=== PATIENT | female | born 1960 | race Caucasian/White ===

== ENCOUNTER 2017-03-22 08:06 | Day surgery (SDC) | payer BC ==
[~2017-03-22 08:06] MED LIST: Buffered Lidocaine 0.9% SYRIN* 5 ML/SYR SYRINGE INTRADERM ONE
[2017-03-22] MEDS ORDERED: Trypan Blue 0.06% SOL* 0.5 ML BTL ONE (10:24)
[2017-03-22] MEDS ORDERED: Midazolam* 1 MG/ML 2 ML VIAL (2 MG) ONE ×2 (10:32→10:37)
[2017-03-22 11:06] VITALS: BP 121/61
[2017-03-22] MEDS ORDERED: acetaZOLAMIDE TAB* 250 MG ONE (15:02)
[2017-03-22] MEDS ORDERED: Lidocaine 2% EPI 1:200000 MPF* 20 ML VIAL ONE (15:02)
[2017-03-22] MEDS ORDERED: Cyclopentolate 1% OPTH.SOL* 2 ML BTL ONE (15:02)
[2017-03-22] MEDS ORDERED: Buffered Lidocaine 0.9% SYRIN* 5 ML/SYR SYRINGE ONE (15:02)
[2017-03-22] MEDS ORDERED: Phenylephrine 2.5% OPTH.SOL* 2 ML BTL ONE (15:02)
[2017-03-22] MEDS ORDERED: Povidone Iodine 5% OPTH* 30 ML BTL ONE (15:02)
[2017-03-22] MEDS ORDERED: Neomycin/Polymy/Dex OPTH.SUSP* MAXITROL 0.1% 5 ML ONE (15:02)
[2017-03-22] MEDS ORDERED: Lidocaine 1% MPF* 2 ML VIAL ONE (15:02)
[2017-03-22] MEDS ORDERED: Proparacaine 0.5% OPHTH.SOL* 15 ML BTL ONE (15:02)
[2017-03-22] MEDS ORDERED: Ketorolac 0.5% OPHTH (NF) 0.5 % 5 ML BTL ONE (15:02)
--- NOTE | 2017-03-23 02:13 | OP ---
DATE OF OPERATION: 03/22/17 - [facility] DATE OF : 64 SURGEON: Juan David Camarillo M.D. PREOPERATIVE DIAGNOSIS: Cataract, right eye. POSTOPERATIVE DIAGNOSIS: Cataract, right eye. OPERATIVE PROCEDURE: Phacoemulsification, right eye, with IOL. DESCRIPTION OF PROCEDURE: The patient was brought to the operating room after being given 1/2% Alcaine with epinephrine drops in the preoperative area. The eye was prepped and draped in the usual sterile fashion. Sterile drape and eyelid speculum were placed. Again, topical 1/2% Alcaine with epinephrine was given. A paracentesis incision was made at the 9 o'clock position with the No.75 blade. Clear cornea incision 2.2 x 2.2-mm was created at the 12 o'clock position starting at the anterior limbus using the 2.2-mm keratome. The anterior chamber was irrigated with 0.4 mL of 1% non-preservative intracameral lidocaine and filled with DisCoVisc. A capsulorrhexis was completed using the cystotome and the Utrata forceps. Hydrodissection was performed with balanced salt solution. The lens nucleus was removed with the Phacoemulsification handpiece without incident. Cortex was removed with the irrigation-aspiration handpiece. The capsular bag was re-inflated using DisCoVisc and an SN60WF 23.5 implant was inserted with the shooter. Prior to capsulorrhexis, Vision Blue was used to stain the anterior capsule. The irrigation- aspiration handpiece was used to remove all residual DisCoVisc. The eye was refilled with balanced salt solution and the wound checked and found to be watertight. Topical Maxitrol drops were given. Indication for complex cataract surgery: White cataract requiring Vision Blue capsular stain. [id number]/[facility] #: [id number] [facility] MEDICAL CENTERChristopher
== END 2017-03-22 11:14 | disposition home or self-care (01) ==
LOC: OREAST 08:06
PROVIDERS: ATTEND Specialist
DX: H25.811 Combined forms of age-related cataract, right eye (principal); F17.210 Nicotine dependence, cigarettes, uncomplicated
CPT/HCPCS: A9270-GY; J2250; V2632

== ENCOUNTER → 2017-04-05 06:45 | Day surgery (SDC) | payer BC ==
[~2017-04-05 06:45] MED LIST changes: +Buffered Lidocaine 0.9% SYRIN* 5 ML/SYR SYRINGE ONE; +Cyclopentolate 1% OPTH.SOL* 2 ML BTL ONE; +Ketorolac 0.5% OPHTH (NF) 0.5 % 5 ML BTL ONE; +Lidocaine 1% MPF* 2 ML VIAL ONE; +Midazolam* 1 MG/ML 2 ML VIAL (2 MG) ONE; +Neomycin/Polymy/Dex OPTH.SUSP* MAXITROL 0.1% 5 ML ONE; +Phenylephrine 2.5% OPTH.SOL* 2 ML BTL ONE; +Povidone Iodine 5% OPTH* 30 ML BTL ONE; +Proparacaine 0.5% OPHTH.SOL* 15 ML BTL ONE; +acetaZOLAMIDE TAB* 250 MG ONE
[2017-04-05 09:15] VITALS: BP 134/74
--- NOTE | 2017-04-05 13:07 | OP ---
OPERATIVE REPORT: DATE OF OPERATION: 04/05/17 DATE OF : 64 SURGEON: Juan David Camarillo M.D. PREOPERATIVE DIAGNOSIS: Cataract, left eye. POSTOPERATIVE DIAGNOSIS: Cataract, left eye. OPERATIVE PROCEDURE: Phacoemulsification, left eye with IOL. PROCEDURE: The patient was brought to the operating room after being given 1/2% Alcaine with epineph rine drops in the preoperative area. The eye was prepped and draped in the usual sterile fashion. S terile drape and eyelid speculum were placed. Again, topical 1/2% Alcaine with epinephrine was given . A paracentesis incision was made at the 3 o'clock position with the No.75 blade. Clear cornea inc ision 2.2 x 2.2-mm was created at the 6 o'clock position starting at the anterior limbus using the 2. 2-mm keratome. The anterior chamber was irrigated with 0.4 mL of 1% non-preservative intracameral li docaine and filled with DisCoVisc. A capsulorrhexis was completed using the cystotome and the Utrata forceps. Hydrodissection was performed with balanced salt solution. The lens nucleus was removed wi th the Phacoemulsification handpiece without incident. Cortex was removed with the irrigation-aspira tion handpiece. The capsular bag was re-inflated using DisCoVisc and an SN60WF 23.5 implant was inse rted with the shooter. The irrigation-aspiration handpiece was used to remove all residual DisCoVisc . The eye was refilled with balanced salt solution and the wound checked and found to be watertight. Topical Maxitrol drops were given. [id number]/[facility] #: [id number]
== END | disposition home or self-care (01) ==
LOC: OREAST 06:45
PROVIDERS: ATTEND Specialist
DX: H25.812 Combined forms of age-related cataract, left eye (principal); M19.90 Unspecified osteoarthritis, unspecified site; E78.00 Pure hypercholesterolemia, unspecified; F17.200 Nicotine dependence, unspecified, uncomplicated
CPT/HCPCS: A9270-GY; J2250; V2632

== ENCOUNTER 2017-05-02 14:30 | Emergency (ER) | payer BC ==
--- OUTSIDE RECORDS SUMMARY | 2017-05-02 15:35 | XMS REPORT ---
:1960 External Reference #:[id number] Author Organization [facility] [email or web address] Address [address] [facility] [facility] [address] [place] [address] Phone [phone] Care Team Providers Name Role Phone Luma Gauthier NP Primary Care Physician Unavailable Payers Type Date Identification Numbers Payment Provider Subscriber Commercial Policy Number: [id number] [employer] Papa Bautista PayID: [id number] [address] [address] [place] [address] Problems Description No Information Social History Type Date Description Comments Smoking Heavy tobacco smoker (more than 10 cigarettes/day) Allergies, Adverse Reactions, Alerts Date Description Reaction Status Severity Comments 04/17/2017 NKDA active Medications Medication Date Status Form Strength Qnty SIG Indications Ordering Provider Meloxicam Active Tablets 15mg 1 by mouth Unknown 000 every day Simvastatin Active Tablets 40mg take 1 Unknown 000 tablet by mouth at bedtime Pantoprazole Active Tablets DR 40mg 1 by mouth Unknown Sodium 000 every day Vital Signs Date Vital Result Comment 04/20/2017 Height 57 inches 4'9" Weight 170.00 lb Heart Rate 72 /min BP Systolic 148 mmHg BP Diastolic 90 mmHg Respiratory Rate 16 /min Body Temperature 97.8 F BMI (Body Mass Index) 36.8 kg/m2 Results Description No Information Procedures Date CPT Code Description Status 02/02/2017 48793 Moderate Sedation Services; Same Phys Intl 15 Mins; PT Completed >=5 Years 02/02/2017 79722 Colonoscopy Flexible Remove Tumor/Polyp/Lesion Snare Completed Technique 02/02/2017 Colonoscopy Completed Plan of Care Future Appointment(s):04/24/2017 10:45 am - Tucker [facility] at [facility]04/20/2017 - Tucker Carballo, MDD44.12 Neoplasm of uncertain behavior of left adrenal glandFollow up:after labs
--- OUTSIDE RECORDS SUMMARY | 2017-05-02 15:35 | XMS REPORT ---
:1960 External Reference #:[id number] Author Organization [facility] Address [address] [place] [address] Phone [phone] Care Team Providers Name Role Phone Luma Gauthier NP Primary Care Physician Unavailable Payers Type Date Identification Numbers Payment Provider Subscriber Commercial Policy Number: [id number] BS [employer] Tony Bautista PayID: [id number] [address] [address] [place] [address] Problems Date Description Provider Status Onset: Hypercholesterolemia Active Onset: Arthritis Active Onset: 02/09/2017 Combined form of senile cataract Juan David Camarillo M.D. 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 2017 right eye Arleo, every 2 M.D. hours Ciprofloxacin 03/17/ Active Solution 0.3% 10ml instill Juan David Estephania HCL 2017 one drop [place], in the M.D. left eye three times a day, start the day before surgery Ketorolac 03/17/ Active Solution 0.5% 10ml 1 drop Juan David Best Tromethamine 2017 left eye [place], 3 times M.D. daily Prednisolone 03/17/ Active Suspension 1% 15ml 1 drop Juan David Best Acetate 2017 left eye Arleo, 3 times M.DJack daily Simvastatin 00/ Active Tablets 40mg Unknown 0000 Pantoprazole / Active Solution Rec 40mg every day Unknown Sodium 0000 Meloxicam / Active Tablets 15mg Unknown 0000 Results Description No Information Procedures Date CPT Code Description Status 04/05/2017 57617 Extracapsular Cataract Extraction W/Intraocular Lens Completed 03/22/2017 11934 Extracapsular Cataract Extraction W/Intraocular Lens Completed 03/17/2017 90660 Ophthalmic Biometry Completed 02/09/2017 77444 New Patient Comprehensive Exam Completed Encounters Type Date Location Provider CPT E/M Dx Office Visit 03/17/2017 Juan David Camarillo MD, Juan David Camarillo, [address] H25.811 11:15a brandie Morgan H25.812 Plan of Care Future Appointment(s):04/13/2017 12:00 pm - Juan David Camarillo M.D. at Juan David Camarillo MD, located within [facility]06/06/2016 - Juan David Camarillo M.D.Z96.1 Presence of intraocular lensComments:Smoking can increase the risk of developing or worsening any eye related disease, as well as affect your overall health. If you are a smoker, we strongly recommend that you quit.If you are not a smoker, we strongly recommend that you do not start. The artifical lens implant in your left eye appears to be stable. Since this is the first day after surgery, your left eye is still dilated and the vision will still be slightly blurry. The dilation will go down over the next day or two. Continue taking your eye drops as directed on the surgical calendar. If you have any questions, please call our office.
--- OUTSIDE RECORDS SUMMARY | 2017-05-02 15:35 | XMS REPORT ---
:1960 External Reference #:[id number] Author Organization [facility] Address [address] [place] [address] Phone [phone] Care Team Providers Name Role Phone Luma Gauthier NP Primary Care Physician Unavailable Payers Type Date Identification Numbers Payment Provider Subscriber Commercial Policy Number: [id number] BS TAYL[employer] Tony Bautista PayID: [id number] [address] [place] [phone] Problems Date Description Provider Status Onset: Hypercholesterolemia Active Onset: Arthritis Active Onset: 02/09/2017 Combined form of senile cataract Juan David Camarillo M.D. Active Onset: 04/13/2017 Other secondary cataract, right eye Juan David Camarillo M.D. Active Onset: 04/13/2017 Presence of intraocular lens Juan David Camarillo M.D. Active Family History [...] 03/22/ Active Solution 1 drop Juan David Best 2017 into the Arleo, right eye M.D. once a day, 1 drop into the left eye three times a day Ketorolac 03/17/ Active Solution 0.5% 10ml 1 drop Juan David Best Tromethamine 2016 into the Arleo, left eye M.D. once a day Prednisolone 03/17/ Active Suspension 1% 15ml 1 drop Juan David J. Acetate 2017 into the Arleo, left eye M.D. once a day Simvastatin 00/ Active Tablets 40mg Unknown 0000 Pantoprazole / Active Solution Rec 40mg every day Unknown Sodium 0000 Meloxicam / Active Tablets 15mg Unknown 0000 Ciprofloxacin 03/17/ Hx Solution 0.3% 10ml instill Juan David J. HCL 2017 - one drop Arleo, 04/12/ in the M.D. 2017 left eye three times a day, start the day before surgery Results Description No Information Procedures Date CPT Code Description Status 04/05/2017 40670 Extracapsular Cataract Extraction W/Intraocular Lens Completed 03/22/2017 02582 Extracapsular Cataract Extraction W/Intraocular Lens Completed 03/17/2017 12965 Ophthalmic Biometry Completed 02/09/2017 34647 New Patient Comprehensive Exam Completed Encounters Type Date Location Provider CPT E/M Dx Office Visit 03/17/2017 Juan David Camarillo MD, Juan David Camarillo, [address] H25.811 11:15a Cathy H25.812 Plan of Care 04/13/2017 - Juan David Camarillo M.D.Z96.1 Presence of intraocular lensComments: Smoking can increase the risk of developing or worsening any eye related disease , as well as affect your overall health. If you are a smoker, we strongly recommend that you quit.If you are not a smoker, we strongly recommend that you do not start. Your lens implant looks stable in both eyes at this time. You should be done, or almost done with your drops at this time according to your surgical calendar. I have given you a prescription for glasses. If you have any questions, please feel free to call our office at .V00.762 Other secondary cataract, right eyeComments:There is clouding in the sac that holds your artificial lens in your right eye. When your vision bothers you, we will do a laser treatment here in the office to improve your vision.Follow up:4 Month Follow Up ANNELISE MANZANO
--- OUTSIDE RECORDS SUMMARY | 2017-05-02 15:35 | XMS REPORT ---
:1960 External Reference #:[id number] Author Organization [employer] Address [address] [facility] [address] [place] [address] Phone [phone] Care Team Providers Name Role Phone Luma Gauthier NP Primary Care Physician Unavailable Payers Type Date Identification Numbers Payment Provider Subscriber Commercial Policy Number: [id number] [employer] Papa Bautista PayID: [id number] [address] [address] [place] [address] Problems Description No Information Social History Type [...] day Vital Signs Date Vital Result Comment 04/24/2017 Heart Rate 90 /min BP Systolic Sitting 110 mmHg BP Diastolic Sitting 70 mmHg Respiratory Rate 18 /min Body Temperature 97.4 F 04/20/2017 Height 57 inches 4'9" Weight 170.00 lb Heart Rate 72 /min BP Systolic 148 mmHg BP Diastolic 90 mmHg Respiratory Rate 16 /min Body Temperature 97.8 F BMI (Body Mass Index) 36.8 kg/m2 Results Test Date Test Result H/L Range Note Laboratory test finding 04/20/2017 Dhea 1.7 ng/mL <6.0 1 1 ADDITIONAL INFORMATION This test was developed and its performance characteristics determined by [facility] in a manner consistent with CLIA requirements. This test has not been cleared or approved by the U.S. Food and Drug Administration. Test Performed by: [facility] [address] [place] [address] Procedures Date CPT Code Description Status 02/02/2017 04369 Moderate Sedation Services; Same Phys Intl 15 Mins; PT Completed >=5 Years 02/02/2017 55630 Colonoscopy Flexible Remove Tumor/Polyp/Lesion Snare Completed Technique 02/02/2017 Colonoscopy Completed Encounters Type Date Location Provider CPT E/M Dx Office Visit 04/20/2017 11:15a [facility] [place] [address] D49.7 [facility] Plan of Care 04/24/2017 - Tucker Carballo, MDD49.7 Neoplm of unsp behav of endo glands and oth prt nervous sysFollow up:Pt to call on
[2017-05-02 15:40] VITALS: BP 115/63
[2017-05-02] MEDS ORDERED: Albuterol/Ipratropium NEB.SOL* Albuterol 2.5 MG/Ipratropium 0.5 MG 3 ML INH ONE (15:48)
[2017-05-02] MEDS ORDERED: predniSONE TAB* 20 MG PO ONE (15:48)
--- NOTE | 2017-05-02 15:54 | ED ---
Respiratory - HPI Summary HPI Summary: 57 yr old female with the complaint of cough. Onset of symptoms five days ago. Coughing, chest congestion and coughing up sputum. The patient denies fever and chills. She has had some wheezing. The patient is a cigarette smoker. She denies CP. No other complaints. - History of Current Complaint Chief Complaint: UCRespiratory Stated Complaint: FLU SYMPTOMS Time Seen by Provider: 05/02/17 15:37 - Allergy/Home Medications Allergies/Adverse Reactions: Allergies Allergy/AdvReac Type Severity Reaction Status Date / Time No Known Allergies Allergy Verified 05/02/17 15:40 PMH/Surg Hx/FS Hx/Imm Hx Endocrine/Hematology History: Denies: Hx Diabetes Cardiovascular History: Denies: Hx Hypertension, Hx Pacemaker/ICD Respiratory History: Denies: Hx Asthma GI History: Reports: Hx Ulcer - bleeding - healed Musculoskeletal History: Reports: Hx Arthritis Sensory History: Reports: Hx Cataracts - both, Hx Contacts or Glasses Denies: Hx Hearing Aid Opthamlomology History: Reports: Hx Cataracts - both, Hx Contacts or Glasses Psychiatric History: Denies: Hx Panic Disorder - Surgical History Surgery Procedure, Year, and Place: cataracts. , 1995 Hx Anesthesia Reactions: No Infectious Disease History: No Infectious Disease History: Denies: Traveled Outside the [place] in Last 30 Days - Social History Occupation: Employed Full-time Alcohol Use: Rare Substance Use Type: Reports: None Smoking Status (MU): Heavy Every Day Tobacco Smoker Type: Cigarettes Amount Used/How Often: smoked more than 10 years 1ppd Review of Systems Positive: Cough All Other Systems Reviewed And Are Negative: Yes Physical Exam Triage Information Reviewed: Yes Vital Signs On Initial Exam: Initial Vitals Temp Pulse Resp BP Pulse Ox 98.3 F 88 16 115/63 98 05/02/17 15:36 05/02/17 15:36 05/02/17 15:36 05/02/17 15:36 05/02/17 15:36 Vital Signs Reviewed: Yes Appearance: Positive: Well-Appearing, No Pain Distress Skin: Positive: Warm Head/Face: Positive: Normal Head/Face Inspection Eyes: Positive: EOMI ENT: Positive: Pharynx normal, Nasal congestion Neck: Positive: Nontender Respiratory/Lung Sounds: Positive: Wheezes - bilaterally. Negative: Rales, Rhonchi, Stridor Cardiovascular: Positive: RRR. Negative: Murmur Abdomen Description: Positive: Nontender Musculoskeletal: Positive: Strength/ROM Intact Neurological: Positive: Sensory/Motor Intact, Alert, Oriented to Person Place, Time, CN Intact II-III Psychiatric: Positive: Normal - Sanford Coma Scale Best Eye Response: 4 - Spontaneous Best Motor Response: 6 - Obeys Commands Best Verbal Response: 5 - Oriented Diagnostics - Vital Signs Vital Signs Temp Pulse Resp BP Pulse Ox 05/02/17 15:36 98.3 F 88 16 115/63 98 - Laboratory Lab Statement: Any lab studies that have been ordered have been reviewed, and results considered in the medical decision making process. Re-Evaluation - Re-Evaluation First Eval Re-Evaluation Time: 16:27 Change: Improved Comment: she reports feeling much better after the neb. Disposition - Course Course Of Treatment: 57 yr old female with the complaint of coughing and wheezing. She denies a history of COPD. - Diagnoses Provider Diagnoses: Acute bronchitis, Mycoplasma pneumonia Discharge - Discharge Plan Condition: Good Disposition: HOME Prescriptions: Albuterol HFA INHALER* [Ventolin HFA Inhaler*] 1 - 2 puff INH Q4H PRN #1 mdi PRN Reason: Cough Azithromycin TAB* [Zithromax TAB (Z-LISBET) 250 mg #6 tabs] 2 tab PO .TODAY, THEN 1 DAILY #1 lisbet Benzonatate CAP* [Tessalon 100 MG CAP*] 100 mg PO TID #14 cap predniSONE TAB* [Deltasone TAB*] 40 mg PO DAILY #8 tab Patient Education Materials: Acute Bronchitis (ED), Pneumonia (ED) Referrals: Luma Gauthier NP [Primary Care Provider] - 2 Days
--- NOTE | 2017-05-02 16:24 | RAD ---
INDICATION: Cough x5 days COMPARISON: None TECHNIQUE: PA and lateral views of the chest were obtained. FINDINGS: The heart and mediastinum are normal in size and contour. The lungs are grossly clear. There is no evidence of large pleural effusion. Visualized bones are normal for the patient's age. There is no radiographic evidence of free air beneath the diaphragm IMPRESSION: No radiographic evidence of acute cardiopulmonary disease.
== END 2017-05-02 16:43 | disposition home or self-care (01) ==
LOC: UCCORT 14:30
DX: J20.9 Acute bronchitis, unspecified (principal); J15.7 Pneumonia due to Mycoplasma pneumoniae; Z72.0 Tobacco use
CPT/HCPCS: 71020; 87502; 99212; A9270-GY; G0463; J7512

== ENCOUNTER 2017-07-26 09:04 | Emergency (ER) | payer BC ==
[2017-07-26 09:53] VITALS: BP 155/94
--- NOTE | 2017-07-26 10:23 | UC ---
Respiratory Complaint HPI - HPI Summary HPI Summary: Pt c/o cough, chest congestion, SOB with exertion and exposure to cold air. - History of Current Complaint Chief Complaint: UCRespiratory Stated Complaint: UPPER RESPIRATORY Time Seen by Provider: 07/26/17 10:11 Hx Obtained From: Patient Hx Last Menstrual Period: n/a ?: No Onset/Duration: Gradual Onset, Lasting Weeks - 3 Timing: Constant Severity Initially: Mild Severity Currently: Mild Pain Intensity: 0 Character: Cough: Nonproductive Aggravating Factors: Exertion, Deep Breaths, Recumbent Position Alleviating Factors: Nothing Associated Signs And Symptoms: Positive: Wheezing - Risk Factors Pulmonary Embolism Risk Factors: Smoking Cardiac Risk Factors: Smoking Pseudomonas Risk Factors: Chronic Lung Disease Tuberculosis Risk Factors: Smoking - Allergies/Home Medications Allergies/Adverse Reactions: Allergies Allergy/AdvReac Type Severity Reaction Status Date / Time No Known Allergies Allergy Verified 07/26/17 09:47 Home Medications: Home Medications Albuterol 2.5MG/3ML (0.083%)* [Ventolin 2.5 MG/3 ML NEB.NINO*] 2.5 mg INH Q6H PRN 07/26/17 [History Confirmed 07/26/17] PMH/Surg Hx/FS Hx/Imm Hx Previously Healthy: Yes Respiratory History: Bronchitis - Surgical History Surgical History: Yes Surgery Procedure, Year, and Place: cataracts. , 1995 - Family History Known Family History: Positive: Cardiac Disease - Social History Occupation: Employed Full-time Lives: With Family Alcohol Use: Occasionally Substance Use Type: None Smoking Status (MU): Heavy Every Day Tobacco Smoker Type: Cigarettes Amount Used/How Often: smoked more than 10 years 1ppd Have You Smoked in the Last Year: Yes Household Exposure Type: Cigarettes Review of Systems Constitutional: Fever - resolved, Chills - resolved, Fatigue Skin: Negative Eyes: Negative ENT: Negative Respiratory: Cough Cardiovascular: Negative Gastrointestinal: Negative Genitourinary: Negative Motor: Negative Neurovascular: Negative Musculoskeletal: Negative Neurological: Negative Psychological: Negative Is Patient Immunocompromised?: No All Other Systems Reviewed And Are Negative: Yes Physical Exam Triage Information Reviewed: Yes Appearance: Well-Appearing Vital Signs: Initial Vital Signs Temp 97.5 F 07/26/17 09:48 Pulse 82 07/26/17 09:48 Resp 20 07/26/17 09:48 BP 155/94 07/26/17 09:48 Pulse Ox 98 07/26/17 09:48 Vital Signs Reviewed: Yes Eye Exam: Normal ENT Exam: Normal Dental Exam: Normal Neck exam: Normal Respiratory Exam: Other Respiratory: Positive: Decreased breath sounds - bialteral bases Cardiovascular Exam: Normal Musculoskeletal Exam: Normal Neurological Exam: Normal Psychological Exam: Normal Skin Exam: Normal UC Diagnostic Evaluation - Laboratory O2 Sat by Pulse Oximetry: 98 Respiratory Course/Dx - Differential Dx/Diagnosis Differential Diagnosis/HQI/PQRI: Bronchitis, Exacerbation Of COPD Provider Diagnoses: Bronchitis Discharge - Sign-Out/Discharge Documenting (check all that apply): Discharge - Discharge Plan Condition: Stable Disposition: HOME Prescriptions: Azithromycin TAB* [Zithromax TAB (Z-LISBET) 250 mg #6 tabs] 2 tab PO .TODAY, THEN 1 DAILY #1 lisbet Benzonatate CAP* [Tessalon 100 MG CAP*] 100 mg PO Q8H PRN #30 cap PRN Reason: Cough Cetirizine* [ZyrTEC 10 MG TAB*] 10 mg PO DAILY #20 tab Fluconazole 100 MG TAB* [Diflucan 100 MG TAB*] 100 mg PO DAILY #2 tab predniSONE TAB* [Deltasone TAB*] 30 mg PO DAILY #9 tab Patient Education Materials: How to Stop Smoking (ED), Acute Bronchitis (ED) Referrals: Luma Gauthier NP [Primary Care Provider] - If Needed - Billing Disposition and Condition Condition: STABLE Disposition: HOME
== END 2017-07-26 10:33 | disposition home or self-care (01) ==
LOC: UCCORT 09:04
DX: J40 Bronchitis, not specified as acute or chronic (principal); F17.210 Nicotine dependence, cigarettes, uncomplicated
CPT/HCPCS: 99212; G0463

== ENCOUNTER 2019-05-16 13:20 | Inpatient (IN) | payer BC ==
[2019-05-16] MEDS ORDERED: NS 0.9% 1000 ML** 1,000 ML IV ONE ×2 (13:21→15:59)
[2019-05-16] MEDS ORDERED: LORazepam INJ* 2 MG/ML 1 ML VIAL IV PUSH ONE (13:36)
[2019-05-16] MEDS ORDERED: Lorazepam PYXIS KEY PRN (13:36)
[2019-05-16] MEDS ORDERED: levETIRAcetam 1000MG IVPREMIX* 1,000 MG/100 ML BAG IVPB ONE (13:36)
--- NOTE | 2019-05-16 13:37 | ED ---
Neurological HPI - HPI Summary HPI Summary: The patient is a 59 year old female arriving by ambulance to [facility] emergency department with a chief complaint of neurological deficits and altered mental status with last well known at 0830 this morning. Per EMS, the patients had left the house at 0830 and returned to find his on the floor at 1130. He noticed that she was confused, had a change in her gaze, and also left-sided weakness. She is not answering questions when prompted, although she states STOP when performing physical. She has had a decreased solid intake recently but has been drinking fluids. notes she has been taking antibiotics for a UTI diagnosed last week. Past medical history is significant for TIA and bladder cancer and two mass removals with radiation and chemotherapy with last treatment in January 2019 at [facility]. No family history of seizures. No recent admissions in the last year. No current anticoagulants. Level 5 Caveat secondary to altered mental status. History obtained from EMS, , and medical records. Toi Cochran called following ambulance call at 1301 with 15 minutes ETA. Patient arrived at 1320. Seen by provider at 1320. Dr. Khan, neurology, also present at bedside upon arrival. Following evaluation, patient immediately to CT. - History of Current Complaint Stated Complaint: POSS STROKE PER EMS Time Seen by Provider: 05/16/19 13:20 Last Known Well Date: 05/16/2019 08:30 Hx Obtained From: Family/Clay Caster - , EMS Hx From Patient Unobtainable Due To: Altered Mental Status - Level 5 Caveat Hx Last Menstrual Period: n/a Onset/Duration: Still Present Neurological Deficit Location: LUE, LLE Pain Intensity: 0 Pain Scale Used: 0-10 Numeric Character: Weak - left-sided, Confusion, Other: - gaze change Associated Signs and Symptoms: Positive: AMS TPA Considered: No - Dr. Khan believes patient's symptoms are more consistent with a seizure - Allergy/Home Medications Allergies/Adverse Reactions: Allergies Allergy/AdvReac Type Severity Reaction Status Date / Time adhesive tape Allergy Rash Verified 05/16/19 13:43 Home Medications: Home Medications Morphine Sulfate 15 mg PO Q4H PRN MDD 6 tabs 05/16/19 [History Confirmed ] Morphine Sulfate [Morphine Sulfate ER] 15 mg PO BID 05/16/19 [History Confirmed 05/16/19] Morphine Sulfate [Morphine Sulfate ER] 30 mg PO BID 05/16/19 [History Confirmed 05/16/19] Ondansetron TAB* [Zofran 4 MG Tab*] 8 mg PO Q8H PRN 05/16/19 [History Confirmed 05/16/19] Pantoprazole TAB * [Protonix TAB*] 40 mg PO DAILY 05/16/19 [History Confirmed ] Prochlorperazine 10 mg TAB [Compazine 10 mg TAB] 10 mg PO Q6H PRN 05/16/19 [ History Confirmed 05/16/19] Uro-Mp 118 mg PO TID PRN 05/16/19 [History Confirmed 05/16/19] oxyCODONE/Acetamin 5/325 MG* [Percocet 5/325 TAB*] 1 tab PO .Q4-6H PRN 05/16/19 [History Confirmed 05/16/19] PMH/Surg Hx/FS Hx/Imm Hx Endocrine/Hematology History: Denies: Hx Diabetes Cardiovascular History: Denies: Hx Hypertension, Hx Pacemaker/ICD Respiratory History: Denies: Hx Asthma GI History: Reports: Hx Ulcer - bleeding - healed Musculoskeletal History: Reports: Hx Arthritis Sensory History: Reports: Hx Cataracts - both, Hx Contacts or Glasses Denies: Hx Hearing Aid Opthamlomology History: Reports: Hx Cataracts - both, Hx Contacts or Glasses Neurological History: Reports: Hx Transient Ischemic Attacks (TIA) Psychiatric History: Denies: Hx Panic Disorder - Cancer History Cancer Type, Location and Year: bladder 2018 - Surgical History Surgery Procedure, Year, and Place: cataracts. , 1996, cystoscopy x 2 2018- [place] to[place] 06/2018 + 02/2019 Hx Anesthesia Reactions: No - Family History Known Family History: Positive: Cardiac Disease - Social History Alcohol Use: Occasionally Substance Use Type: Reports: None Smoking Status (MU): Heavy Every Day Tobacco Smoker Type: Cigarettes Amount Used/How Often: smoked more than 10 years 1ppd Have You Smoked in the Last Year: Yes Review of Systems Neurological: Other - altered mental status, confusion, gaze change Positive: Weakness - left-sided All Other Systems Reviewed And Are Negative: No - Comments Additional Review of Systems Comments: Level 5 Caveat secondary to altered mental status Physical Exam - Summary Physical Exam Summary: VITAL SIGNS: Reviewed. GENERAL: Patient is a well-developed and nourished elderly female who is lying comfortable in the stretcher. Patient is not in any acute respiratory distress. HEAD AND FACE: No signs of trauma. No ecchymosis, hematomas or skull depressions. No sinus tenderness. EYES: Right-sided deviation. EOMI x 2, No injected conjunctiva. No photophobia. EARS: Hearing grossly intact. Ear canals and tympanic membranes are within normal limits. MOUTH: Oropharynx within normal limits. NECK: Supple, trachea is midline, no adenopathy, no JVD, no carotid bruit, no c- spine tenderness, neck with full ROM. No meningeal signs, no Kernig's or brudzinskis signs. CHEST: Symmetric, no tenderness at palpation. LUNGS: Clear to auscultation bilaterally. No wheezing or crackles. CVS: Regular rate and rhythm, S1 and S2 present, no murmurs or gallops appreciated. ABDOMEN: Soft, non-tender. No signs of distention. No rebound, no guarding, and no masses palpated. Bowel sounds are normal. EXTREMITIES: FROM in all major joints, no edema, no cyanosis or clubbing. NEURO: Alert and confused. Unable to provide history. She is not speaking. No weakness. SKIN: Dry and warm. GCS: 14 (see scale). NIH: 10 (see scale). Triage Information Reviewed: Yes Vital Signs Reviewed: Yes Completion Of Physical Exam Limited Due To: Altered Mental Status, Level 5 - Eliceo Coma Scale Best Eye Response: 4 - Spontaneous Best Motor Response: 6 - Obeys Commands Best Verbal Response: 4 - Confused Coma Scale Total: 14 Procedures - Sedation Patient Received Moderate/Deep Sedation with Procedure: No Diagnostics - Laboratory Result Diagrams: 05/16/19 13:43 05/16/19 13:43 Lab Statement: Any lab studies that have been ordered have been reviewed, and results considered in the medical decision making process. - Radiology Chest X-Ray Radiology Interpretation Completed By: Radiologist Summary of Radiographic Findings: Impression: No active cardiopulmonary disease. ED physician has reviewed this report. - CT Brain CT CT Interpretation Completed By: Radiologist Summary of CT Findings: Impression: No acute intracranial pathology. ED physician has reviewed this report. - EKG 1350 Cardiac Rate: Tachycardia - 115 bpm EKG Rhythm: Sinus Tachycardia Summary of EKG Findings: An EKG at 1350 reveals sinus tachycardia at [address] elevations. ED physician has reviewed and interpreted this EKG. NIH Scale - NIH Scale Level of Consciousness: Responds to Minor Stimulation Ask Patient the Month and His/Her Age: Neither Correct/Aphasic Ask Pt to Open/Close Eyes and Log Cutter/Release Non-Paretic Hand: Neither Correctly Best Gaze (Only Horizontal Eye Movement): Forced Deviation Visual Field Testing: No Visual Loss Facial Paresis-Pt to Smile & Close Eyes or Grimace Symmetry: Normal/Symmetrical Motor Function - Right Arm: No Drift-Holds 10 Seconds Motor Function - Left Arm: No Drift-Holds 10 Seconds Motor Function - Right Leg: No Drift-Holds 10 Seconds Motor Function - Left Leg: No Drift-Holds 10 Seconds Limb Ataxia-Must be out of Proportion to Weakness Present: Absent - patient doesn't follow commands Sensory (Use Pinprick to Test Arms/Legs/Trunk/Face): Normal - unable to assess as patient does not communicate Best Language (Describe Picture, Name Items): Severe Aphasia Dysarthria (Read Several Words): Normal - unable to assess as patient does not communicate Extinction and Inattention: Inattention - patient does not follow command Total Score: 10 NIH Stroke Scale Comment: Difficult NIH score assessment Re-Evaluation - Re-Evaluation First Eval Re-Evaluation Time: 13:40 Comment: Brain CT is negative, per radiology. Second Eval Re-Evaluation Time: 15:00 Comment: Patient's family agreeable with admission. Course/Dx - Course Assessment/Plan: The patient is a 59 year old female arriving by ambulance to [facility] emergency department with a chief complaint of neurological deficits and altered mental status with last well known at 0830 this morning. Per EMS, the patients had left the house at 0830 and returned to find his on the floor at 1130. He noticed that she was confused, had a change in her gaze, and also left-sided weakness. She is not answering questions when prompted, although she states STOP when performing physical. She has had a decreased solid intake recently but has been drinking fluids. notes she has been taking antibiotics for a UTI diagnosed last week. Past medical history is significant for TIA and bladder cancer and two mass removals with radiation and chemotherapy with last treatment in January 2019 at [facility]. No family history of seizures. No recent admissions in the last year. No current anticoagulants. Level 5 Caveat secondary to altered mental status. History obtained from EMS, , and medical records. Toi Cochran called following ambulance call at 1301 with 15 minutes ETA. Patient arrived at 1320. Seen by provider at 1320. Dr. Khan, neurology, also present at bedside upon arrival. Following evaluation, patient immediately to CT. Dr. Khan reports that the patient is not having a stroke, he thinks that the patient is having seizures. Therefore, he requested an EEG, Keppra, and Ativan. Head CT impression: No acute interconnected pathology. Blood work without any significant abnormality except for the slight anemia, potassium of 3.3, BUN of 39, creatinine of 0.44, calcium of 8.2, alkaline phosphatase of 150, ammonia of 64, and troponin of 0.01. EKG shows sinus tachycardia. Chest X-ray is negative. In the ED course, the patient also was given IV fluids since the patient may be dehydrated. At this time, I discussed my physical exam and findings with Dr. Clay who accepted the patient for admission. Patient is hemodynamically stable. - Differential Dx Differential Diagnoses Neuro: Positive: Carbon Monoxide Poisoning, Cerebrovascular Accident, Drug Toxicity, Dysrhythmia, Encephalitis, Hypoxia, Intracranial Bleed, Metabolic Abnormality, Overdose, Postical, Transient Ischemic Attack - Diagnoses Provider Diagnoses: Seizure, Dehydration, Hypokalemia During the Visit The Following Alert/Code Occurred: Toi Cochran - called at 1301 - Physician Notifications Discussed Care Of Patient With: Monico Khan - neurologist Time Discussed With Above Provider: 13:50 Instructed by Provider To: Other - Dr. Khan in patient's room; per his evaluation, he states that the patient does not seem to be suffering from a stroke, but it is possible there is seizure activity as she is moving her eyes from left to right and appears postictal. Dr. Khan recommends admission to the ICU [[id number]]. I spoke with Dr. Peterson, hand riveter, who states that the patient can be admitted through the hospitalist services [[id number]]. I discussed the patient 's case with Dr. Clay, who accepts the patient for admission to her services in the ICU [[id number]]. - Critical Care Time Critical Care Time: 30-74 min Discharge ED - Sign-Out/Discharge Documenting (check all that apply): Patient Departure - Patient accepted for admission to the ICU by Dr. Clay. - Discharge Plan Condition: Stable Disposition: ADMITTED TO [facility] - Billing Disposition and Condition Condition: STABLE Disposition: Admitted to [facility] - Attestation Statements Document Initiated by Surjit: Yes Documenting Scribe: Dona Cruz Provider For Whom Surjit is Documenting (Include Credential): Dr. Kevin Ortiz MD Scribe Attestation: Dona Carlos scribed for Dr. Kevin Ortiz MD on 05/16/19 at 2154. Scribe Documentation Reviewed: Yes Provider Attestation: The documentation as recorded by the Dona ruiz accurately reflects the service I personally performed and the decisions made by me, Dr. Kevin Ortiz MD Status of Scribe Document: Viewed
[2019-05-16 14:10] LABS: ABS Lymphocytes 0.8 10^3/ul (1.0-4.8); ABS Monocytes 0.6 10^3/ul (0-0.8); ABS Neutrophils 6.6 10^3/ul (1.5-7.7); Eosinophil % 0.3 %; Hematocrit 33 % (35-47); Hemoglobin 10.7 g/dL (12.0-16.0); Lymphocyte % 10.1 %; Mean Corpuscular HGB Conc 33 g/dL (31-36); Mean Corpuscular Hemoglobin 31 pg (27-31); Mean Corpuscular Volume 95 fL (80-97); Mean Platelet Volume 7.4 fL (7.4-10.4); Platelet Count 350 10^3/uL (150-450); Red Blood Count 3.43 10^6 /uL (3.70-4.87); Red Cell Distribution Width 18 % (10-15)
[2019-05-16 14:20] LABS: Activated Partial Thrombo Time 25.6 seconds (26.0-38.0); INR 1.08 (0.82-1.09)
[2019-05-16 14:26] LABS: Albumin 2.7 g/dL (3.2-5.2); Albumin/Globulin Ratio 0.9 (1-3); BUN/Creatinine Ratio 88.6 (8-20); Calcium 8.2 mg/dL (8.6-10.3); EGFR African American 178.3 (>60); EGFR Non-African American 147.4 (>60); Globulin 2.9 g/dL (2-4); HDL Cholesterol 36.8 mg/dL; Potassium 3.3 mmol/L (3.5-5.0); Total Bilirubin 0.8 mg/dL (0.2-1.0); Total Protein 5.6 g/dL (6.4-8.9)
[2019-05-16 14:27] LABS: Troponin I 0.01 ng/mL (<0.03)
[2019-05-16 14:39] LABS: TSH (Thyroid Stimulating Horm) 1.28 mcIU/mL (0.34-5.60)
[2019-05-16] MEDS ORDERED: Iohexol 350* (CONTRAST) 500 ML MDV IV ONE (15:50)
[2019-05-16] MEDS ORDERED: LORazepam INJ* 2 MG/ML 1 ML VIAL IV PUSH PRN (15:53)
[2019-05-16] MEDS ORDERED: Ondansetron TAB* 4 MG PO PRN (15:54)
[2019-05-16] MEDS ORDERED: NS 0.9% 1000 ML** 1,000 ML IV SCH (16:00)
[2019-05-16] MEDS ORDERED: levETIRAcetam 1000MG IVPREMIX* 1,000 MG/100 ML BAG IVPB SCH (16:00)
--- NOTE | 2019-05-16 16:52 | CONS ---
NEUROLOGY CONSULTATION NOTE: DATE OF CONSULT: 05/16/19 CONSULTING PROVIDER: Dr. Ortiz. REASON FOR CONSULT: Activated code stroke for eye deviation. The history was obtained by the patient's , Mr. Bautista, who is at bedside. CHIEF COMPLAINT: The patient is nonverbal and appears confused. HISTORY OF PRESENT ILLNESS: Mrs. Megan Bautista is a 59-year-old right-handed female with history of bladder cancer, status post chemotherapy and radiation therapy; chronic pain; dyslipidemia; GERD; who presented to [facility] via EMS due to increased confusion, lethargy, and eye deviation towards one side. According to her , the patient was last seen well on 05/15/19 at 1400. Mr. Bautista works the second shift and works from 3 to 11. He came home last night and she was sleeping. This morning, the patient was found to be slightly confused, but she was at least verbalizing. Mr. Bautista went out to help his sister and then came back at approximately 1230 and found the patient to be minimally responsive. She was moaning. Her eyes were deviating initially to the left. EMS was contacted and the patient was brought to [facility]. According to the EMS, the patient was not moving the left arm as well as the right arm. She also had her eye deviation go from left to right multiple times. During my evaluation, I did notice that the patient had eye deviation towards the right side with her eyes wide open. She had decreased responsiveness. After the CAT scan, we were trying to obtain a CTA of head and neck. Then, suddenly, the patient became awake and aggressive. She was pushing staff members and not allowing the test to be performed. Clearly, she had no weakness on the extremities. She was still confused and not answering questions appropriately. A stat EEG was obtained and showed diffuse triphasic waves as well as epileptiform discharges with some semirhythmic generalized periodic discharges fundally predominant seen during the recording. When given Ativan, the patient did not have any positive response. However, the discharges on the EEG subsided and the patient went to sleep. The patient was treated for a UTI 5 to 7 days ago for a total of 5 days. The patient's does not know which antibiotics she was started on. PAST MEDICAL HISTORY: As mentioned in the HPI. MEDICATIONS: 1. Simvastatin 40 mg p.o. daily. 2. Prochlorperazine 10 mg p.o. every 6 hours. 3. Pantoprazole 40 mg p.o. daily. 4. Ondansetron 8 mg p.o. every 8 hours. 5. Morphine 30 mg p.o. b.i.d. 6. Morphine 15 mg p.o. b.i.d. 7. Oxycodone 1 tablet by mouth every 4 to 6 hours as needed. 8. Morphine 15 mg p.o. every 4 hours. Please note that the patient's exact morphine dose needs to be confirmed by pharmacy. FAMILY HISTORY: No family history of stroke or seizures. SOCIAL HISTORY: She is . 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 She lives with her . There is no history of excessive alcohol abuse. PHYSICAL EXAM: Vitals: Pulse in the 113, temperature of 98.1, respiratory rate of 11, oxygen saturation of 93%, blood pressure of 105/69. General: Ill- appearing, frail female, who is thin, who is in no acute distress. Head: Atraumatic, normocephalic without any obvious abnormality. Neck is supple and symmetrical with no carotid bruits. Eyes: Conjunctivae/corneas are clear. The patient has dry oral mucosa. Cardiovascular: Sinus tachycardia with no murmurs. Respiratory: Clear to auscultation bilaterally with no wheezing or rhonchi. Extremities: Normal range of motion bilaterally. No cyanosis or edema. Skin: No skin lesions or lacerations. Psych: Unable to assess. Neurological Examination: The patient is drowsy, appears obtunded after given the Ativan. She is nonverbal, groaning, and keeps repeating to leave her alone when awakened. Pupils are equal, round, and reactive to light measuring 3 mm bilaterally and constricting to 2 mm. Extraocular muscles are intact. There is no facial asymmetry. Motor Exam: She moves all 4 extremities symmetrically , but not to command. Sensation: She flexes and withdraws to distal noxious stimuli. Coordination and gait were not assessed. Reflexes 1+ throughout symmetrically. Downgoing plantar responses bilaterally. DIAGNOSTIC STUDIES/LAB DATA: Labs, imaging, and other diagnostic testing: The patient had a CT of the head without contrast that showed no acute intracranial abnormality. We are still waiting on labs to be done. She could not participate with a CTA of the head and neck. ASSESSMENT AND RECOMMENDATION: Mrs. Megan Bautista is a 59-year-old female with a history of bladder cancer, unknown metastasis, status post chemo and radiation therapies. The patient was recently treated for urinary tract infection with unknown antibiotics. 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 The patient's EEG did not show any nonconvulsive status at the end of the recording, after she was loaded with Ativan. We did not notice any clinical response. The patient is currently sleeping and has stable vitals. Recommend admission to the hospitalist service. Close monitoring overnight. Please repeat an EEG in the morning to make sure she is not in and out of nonconvulsive status epilepticus. I have started the patient on levetiracetam 1000 mg to be given times once and continue 1000 mg twice daily. I also ordered an ABG to make sure the patient does not have any hypercapnic respiratory failure. I do not suspect the patient had a stroke; however, given her history of cancer, metastatic disease to the brain needs to be ruled out. Please order an MRI of the brain with and without contrast. We are still waiting on lab work to make sure the patient does not have any electrolyte imbalance, but I do agree starting her on IV fluids as she appears to be dehydrated. Once the patient awakens and alerts, slowly resume her pain medications to prevent any withdrawal. Further history will be obtained once the patient is more alert. I had requested for Mr. Bautista to obtain the antibiotics that she was recently taking for the urinary tract infection. Please check a urinalysis to make sure the urinary tract infection has been cleared with antibiotics. Neuro checks every 2 to 4 hours for the next 24 hours. Treat any generalized seizure-like activity with lorazepam 2 mg IV push for any generalized convulsions lasting for longer than 5 minutes. Please contact us immediately. [id number]/[facility] #: [id number] MACY
[2019-05-16] MEDS: KCL 10 MEQ/50 ML IVPREMIX* 10 MEQ/50 ML BAG IV SCH ×2 (18:10→21:07)
[2019-05-16] MEDS: Pantoprazole IV* 40 MG IV SCH (18:10)
--- NOTE | 2019-05-16 18:39 | HP ---
CC: Luma Gauthier NP * HISTORY AND PHYSICAL: DATE OF ADMISSION: 05/16/19 PRIMARY CARE PROVIDER: Luma Gauthier NP. CHIEF COMPLAINT: Altered mental status. HISTORY OF PRESENT ILLNESS: Ms. Bautista is a 59-year-old female who was brought to the emergency room with altered mental status. The patient reportedly yesterday was abnormal. The patient's did not bring her to the emergency room at that time, however. At approximately 8:30 a.m. on the day of discharge, the patient's left the house with her reportedly being well, though this is questionable. The patient's returned at 11:30 a.m. on the day of admission and found his on the floor. He noticed that she was confused and had a change in her gaze. She was not answering questions. The patient was diagnosed with a UTI last week and was started on Bactrim. The patient was brought in as a code watt. Dr. Khan saw the patient in consultation. Of note, all of the history is obtained from the ED records, as the patient's is not present. The patient at this time is sedated and unable to answer any questions. PAST MEDICAL HISTORY: 1. Hyperlipidemia. 2. GERD. 3. Chronic pain. 4. History of bladder cancer. 5. History of TIA. PAST SURGICAL HISTORY: 1. Bilateral cataract extractions. 2. . MEDICATIONS: 1. Uro-MP 118 mg p.o. t.i.d. p.r.n. pain. 2. Morphine sulfate 15 mg p.o. q.4 hours p.r.n. pain. 3. Simvastatin 40 mg p.o. daily. 4. Compazine 10 mg p.o. q.6 hours p.r.n. nausea. 5. Protonix 40 mg p.o. daily. 6. Zofran 8 mg p.o. q.8 hours p.r.n. nausea. 7. Morphine sulfate ER 45 mg p.o. twice daily. 8. Percocet 5/325, one tab p.o. q.4 to 6 hours p.r.n. pain. ALLERGIES: ADHESIVE TAPE. FAMILY HISTORY: Dad had Alzheimer's. Mom had diabetes (this is per old records ). SOCIAL HISTORY: Also per old records, the patient was a former smoker up to 2017. I do not have any more recent record beyond that. She drinks alcohol on occasion. 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 She is . Surrogate decision maker would be her . REVIEW OF SYSTEMS: Unobtainable from the patient, as she is sedated. PHYSICAL EXAMINATION GENERAL: The patient is a well-developed, middle-aged female, who appears older than her stated age, sitting up in the stretcher, sleeping, unresponsive to sternal rub or pressure on the nail beds. VITAL SIGNS: Blood pressure 100/62, pulse 91, respirations 11, temp 98.1, O2 sat 94% on room air. HEENT: Pupils are round. I do question if the left may be slightly larger than the right. Both react to light, however. There is no submandibular, cervical or subclavicular adenopathy. PULMONARY: Lungs are clear to auscultation anteriorly. CARDIAC: Normal S1 and S2. Regular rate and rhythm. I do not appreciate any murmurs. ABDOMEN: Bowel sounds are present. Abdomen is soft, nontender, and nondistended. MUSCULOSKELETAL: The patient does not move any of her extremities spontaneously. SKIN: Visible areas of skin are warm and dry. There are no rashes. There is 1 + bilateral lower extremity pitting edema. NEUROLOGIC: The patient is obtunded. She has a GCS of 3. PSYCH: Unobtainable. DIAGNOSTIC STUDIES/LAB DATA: WBC 8.0, hemoglobin 10.7, hematocrit 33, platelets 350. INR 1.08. Sodium 135, potassium 3.3, chloride 103, CO2 of 22, BUN 39, creatinine 0.44, glucose 100, lactic acid 1.3, calcium 8.2. Bilirubin 0.8, AST 13, ALT 12, alk phos 150. Troponin 0.01. Albumin 2.7. Triglycerides 125, cholesterol 128, LDL 66, HDL 36.8. B12 of 448. TSH 1.28. CT brain: No acute intracranial pathology. Chest x-ray: No active cardiopulmonary disease. Electrocardiogram reveals sinus tachycardia with PVC and no acute ST-T wave abnormalities. ASSESSMENT AND PLAN: Ms. Bautista is a 59-year-old female who was reportedly found with altered mental status this morning, but perhaps dating back to yesterday, who had a markedly abnormal EEG per verbal report from Dr. Khan in the emergency room. 1. 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 It is Dr. Khan's impression that the patient was likely in nonconvulsive status on presentation to the emergency room. Her EEG abnormalities normalized after administration of Ativan and Keppra. Unfortunately, now the patient is completely obtunded. The patient will be admitted to the intensive care unit. She will be maintained on Keppra 1000 mg twice daily. Unfortunately, we are not able to get an MRI, as the MRI machine is down. She had a CT of the brain that was negative. We will obtain a CTA of the head and neck. Repeat EEG will be obtained tomorrow morning. I have ordered p.r.n. Ativan for seizures lasting greater than 5 minutes. 2. Chronic pain. At this point, as the patient is so obtunded, I am holding all of her home medications. It is likely, however, that she will go into withdrawal because of this. We will need to monitor for this. 3. Hyperlipidemia. Simvastatin is on hold as the patient is obtunded. 4. Gastroesophageal reflux disease. Hold Protonix. 5. Anemia. The patient's last hemoglobin in our system was from 2018, it was normal at 15.7. Her current hemoglobin is down to 10.7. Her BUN is markedly elevated in relation to her creatinine. We will obtain a stool occult blood. We will get a followup CBC tomorrow morning. 6. DVT prophylaxis. According to the Adult Thrombosis Prophylaxis Risk Factor Assessment Guide, the patient has a total risk factor score of 3, making her high risk. She will be placed on heparin 5000 units subcutaneous q.8 hours. 7. Code status is full. TIME SPENT: Sixty-five minutes was spent admitting this patient. [id number]/[facility] #: [id number] [facility] SYSTEM[facility]
[2019-05-16] MEDS ORDERED: KCL 10 MEQ/50 ML IVPREMIX* 10 MEQ/50 ML BAG ONE (21:04)
--- NOTE | 2019-05-16 21:27 | EEG ---
ELECTROENCEPHALOGRAPHY REPORT: DATE OF STUDY: 05/16/19 - ROOM #[id number] DATE READ: 05/16/19 DURATION: 1349 - 5122. INDICATIONS: Ms. Bautista is a 59-year-old female who was found confused and had gaze deviation towards the right side. This EEG was obtained to evaluate for epileptiform abnormalities or nonconvulsive seizures. The most prominent feature of this recording were high-voltage triphasic waves that clustered within a 2-2.5 Hz interval during the beginning part of the recording. These triphasic waves were abated after IV Ativan use at 1410. Otherwise, the background lacked organization or clearly defined anterior- posterior voltage and frequency gradients. There was no discernible posterior dominant rhythm. Instead, the background consisted of diffuse medium amplitude polymorphic 1-3 Hz delta range slowing. At times, the delta slowing became sharply contoured and took on triphasic morphology. The hyperventilation and photic stimulation were not performed. Single electrode EKG showed sinus tachycardia with a rate of 125 beats per minute. Throughout the end of the recording, there were no electrographic seizures. CLINICAL IMPRESSION: This is an abnormal EEG due to a semirhythmic pattern of high frequent triphasic waves concerning for nonconvulsive status epilepticus in the appropriate clinical setting. At the end of the recording, after Ativan was administered, there were no epileptiform discharges or electrographic seizures. The patient clinically had eye deviation toward the right, but then corrected to primary gaze after Ativan therapy. It is unclear if she had a clinical response to benzodiazepine therapy. Repeating an EEG first thing in the morning is recommended. The patient also had diffuse slowing of the background, would suggest moderate diffuse encephalopathy. [id number]/[facility] #: [id number] [facility]
[2019-05-16] MEDS: Heparin VIAL(*) 5000 UNITS/ML VIAL (FIVE THOUSAND) SUBCUT SCH (22:27)
[2019-05-17] MEDS: levETIRAcetam 1000MG IVPREMIX* 1,000 MG/100 ML BAG IVPB SCH ×2 (01:37→14:35)
[2019-05-17 03:19] LABS: Urine Appearance Turbid; Urine Bilirubin Negative (Negative); Urine Blood 2+ (Negative); Urine Color Yellow; Urine Glucose Negative (Negative); Urine Ketones 1+ (Negative); Urine Nitrite Negative (Negative); Urine Protein 1+(30 mg/dL) (Negative); Urine Specific Gravity 1.013 (1.010-1.030); Urine Urobilinogen Negative (Negative)
[2019-05-17 03:41] LABS: Urine Bacteria Absent (Absent); Urine Red Blood Cell 3+(>10/hpf) (Absent); Urine White Blood Cell 2+(11-20/hpf) (Absent)
[2019-05-17 05:31] LABS: ABS Lymphocytes 0.8 10^3/ul (1.0-4.8); ABS Monocytes 0.2 10^3/ul (0-0.8); Eosinophil % 0.6 %; Hematocrit 30 % (35-47); Mean Corpuscular HGB Conc 34 g/dL (31-36); Mean Corpuscular Hemoglobin 32 pg (27-31); Mean Corpuscular Volume 95 fL (80-97); Mean Platelet Volume 7.5 fL (7.4-10.4); Nucleated Red Blood Cells % 0.1; Platelet Count 261 10^3/uL (150-450); Red Blood Count 3.13 10^6 /uL (3.70-4.87); Red Cell Distribution Width 18 % (10-15); White Blood Count 5.2 10^3/uL (3.5-10.8)
[2019-05-17 05:41] LABS: Anion Gap 7 mmol/L (2-11); BUN/Creatinine Ratio 68.6 (8-20); Blood Urea Nitrogen 24 mg/dL (6-24); CO2 Carbon Dioxide 19 mmol/L (22-32); Calcium 7.6 mg/dL (8.6-10.3); Chloride 110 mmol/L (101-111); EGFR African American 232.2 (>60); EGFR Non-African American 191.9 (>60); Glucose 72 mg/dL (70-100); Potassium 3.6 mmol/L (3.5-5.0); Sodium 136 mmol/L (135-145)
[2019-05-17] MEDS: Heparin VIAL(*) 5000 UNITS/ML VIAL (FIVE THOUSAND) SUBCUT SCH ×3 (06:12→22:19)
--- NOTE | 2019-05-17 08:15 | PN ---
Subjective Date of Service: 05/17/19 Interval History: Ms. Bautista remains obtunded this morning. She responds to touch and painful stimuli, tells me to "stop" when pressure applied to nail beds. No family at bedside. No changes overnight. No concerns from nursing. Family History: Unchanged from Admission Social History: Unchanged from Admission Past Medical History: Unchanged from Admission Objective Active Medications: Heparin Sodium (Porcine) (Heparin Vial(*)) 5,000 units SUBCUT Q8HR YESI Sodium Chloride (Ns 0.9% 1000 Ml) 1,000 mls @ 75 mls/hr IV PER RATE YESI Levetiracetam (Keppra Iv Premix*) 1,000 mg in 100 mls @ 400 mls/hr IVPB Q12H YESI Lorazepam (Ativan Inj*) 2 mg IV PUSH Q4H PRN seizure lasting >5min Ondansetron HCl (Zofran Tab*) 8 mg PO Q8H PRN NAUSEA/VOMITING Pantoprazole Sodium (Protonix Iv*) 40 mg IV Q24H [facility] Vital Signs - 8 hr 05/17/19 05/17/19 05/17/19 00:15 00:30 00:45 Temperature 98.4 F 98.4 F 98.6 F Pulse Rate 77 77 79 Respiratory 13 11 13 Rate Blood Pressure 101/65 101/66 96/57 (mmHg) O2 Sat by Pulse 96 96 96 Oximetry 05/17/19 05/17/19 05/17/19 01:00 01:15 01:30 Temperature 98.6 F 98.8 F 98.8 F Pulse Rate 84 76 79 Respiratory 12 11 13 Rate Blood Pressure 108/62 107/63 103/63 (mmHg) O2 Sat by Pulse 96 95 95 Oximetry 05/17/19 05/17/19 05/17/19 01:45 02:00 02:15 Temperature 98.8 F 98.8 F 99.0 F Pulse Rate 104 86 90 Respiratory 18 14 14 Rate Blood Pressure 110/71 115/67 111/64 (mmHg) O2 Sat by Pulse 95 93 95 Oximetry 05/17/19 05/17/19 05/17/19 02:30 02:45 03:00 Temperature 99.0 F 99.0 F 99.0 F Pulse Rate 82 102 116 Respiratory 13 16 18 Rate Blood Pressure 109/61 111/74 126/74 (mmHg) O2 Sat by Pulse 96 96 95 Oximetry 05/17/19 05/17/19 05/17/19 03:15 03:30 03:45 Temperature 99.0 F 99.0 F 99.1 F Pulse Rate 87 82 84 Respiratory 14 15 13 Rate Blood Pressure 106/69 104/61 97/65 (mmHg) O2 Sat by Pulse 95 96 97 Oximetry 05/17/19 05/17/19 05/17/19 03:50 04:00 04:15 Temperature 99.1 F 99.1 F Pulse Rate 89 86 Respiratory 14 15 12 Rate Blood Pressure 117/75 105/63 (mmHg) O2 Sat by Pulse 98 97 Oximetry 05/17/19 05/17/19 05/17/19 04:30 04:45 05:00 Temperature 99.1 F 99.1 F 99.1 F Pulse Rate 85 83 79 Respiratory 13 12 13 Rate Blood Pressure 95/61 104/67 97/62 (mmHg) O2 Sat by Pulse 97 98 98 Oximetry 05/17/19 05/17/19 05/17/19 05:15 05:30 05:39 Temperature 97.9 F 99.1 F Pulse Rate 88 85 Respiratory 15 14 15 Rate Blood Pressure 120/71 115/71 (mmHg) O2 Sat by Pulse 97 98 Oximetry 05/17/19 05/17/19 05/17/19 05:45 06:00 06:16 Temperature 99.1 F 99.1 F 99.1 F Pulse Rate 86 82 91 Respiratory 15 17 23 Rate Blood Pressure 118/74 120/73 123/71 (mmHg) O2 Sat by Pulse 98 97 97 Oximetry 05/17/19 05/17/19 05/17/19 06:30 06:45 07:00 Temperature 99.1 F 99.1 F 99.0 F Pulse Rate 108 110 90 Respiratory 13 12 15 Rate Blood Pressure 93/52 111/66 105/64 (mmHg) O2 Sat by Pulse 97 97 96 Oximetry 05/17/19 05/17/19 05/17/19 07:15 07:30 08:00 Temperature 99.0 F 99.0 F Pulse Rate 81 80 Respiratory 16 15 14 Rate Blood Pressure 102/58 106/67 (mmHg) O2 Sat by Pulse 97 97 Oximetry Oxygen Devices in Use Now: None Appearance: Middle-aged female lying in bed in NAD Neck: NL Appearance and Movements; NL JVP, Trachea Midline Respiratory: Symmetrical Chest Expansion and Respiratory Effort, Clear to Auscultation Cardiovascular: NL Sounds; No Murmurs; No JVD, RRR Abdominal: NL Sounds; No Tenderness; No Distention Extremities: - - +2 pitting BLE Neurological: - - Sedated, responds to touch Lines/Tubes/Other Access: Clean, Dry and Intact Peripheral IV Result Diagrams: 05/17/19 05:13 05/17/19 05:13 Assess/Plan/Problems-Billing Assessment: Ms. Bautista is a 59 yo F with PMH of chronic pain on narcotics, HLD, GERD, TIA, bladder cancer; who presented to the ED with AMS and was found to have an abnormal EEG concerning for status epilepticus, obtunded after receiving anticonvulsants. - Patient Problems (1) Status epilepticus Code(s): G40.901 - EPILEPSY, UNSP, NOT INTRACTABLE, WITH STATUS EPILEPTICUS Comment: - Found on the floor at home by , confused and with gaze abnormality - Responding to touch, but still very lethargic - EEG in ED showing findings concerning for nonconvulsive status epilepticus; loaded on lorazepam and Keppra - No evidence of UTI or other significant lab abnormalities - Appreciate Neuro consult; recommends continuing Keppra, MRI brain with and without contrast, slowly resuming pain medications - Repeat EEG this morning - MRI brain to be obtained when MRI is avilable (hopefully tomorrow) - Neuro checks - Continue Keppra, lorazepam PRN for breakthrough seizures (2) Anemia Code(s): D64.9 - ANEMIA, UNSPECIFIED Comment: - Hgb 10, down from 15 in 2018 - Check stool occult and iron studies (3) Chronic pain Code(s): G89.29 - OTHER CHRONIC PAIN Comment: - Hold morphine and Percocet until she is more awake and able to swallow - Monitor for opioid withdrawal (4) Hyperlipidemia Code(s): E78.5 - HYPERLIPIDEMIA, UNSPECIFIED Comment: - Hold simvastatin while NPO (5) GERD (gastroesophageal reflux disease) Code(s): K21.9 - GASTRO-ESOPHAGEAL REFLUX DISEASE WITHOUT ESOPHAGITIS Comment : - Continue pantoprazole (6) DVT prophylaxis Code(s): Z29.9 - ENCOUNTER FOR PROPHYLACTIC MEASURES, UNSPECIFIED Comment: - Heparin SQ (7) Full code status Code(s): Z78.9 - OTHER SPECIFIED HEALTH STATUS Comment: Status and Disposition: Inpatient. Remains in ICU d/t sedation. Anticipate d/c home when medically stable. Attending: Misael Mckeon
[2019-05-17 10:39] LABS: Ferritin 385.4 ng/mL (11-307)
[2019-05-17 10:53] LABS: % Iron Saturation 31 % (15-55); Iron 37 ug/dL (50-212); Total Iron Binding Capacity 120 mcg/dL (250-450); Transferrin 86 mg/dL (203-362)
[2019-05-17] MEDS ORDERED: Gadoteridol* (CONTRAST) 279.3 MG/ML 10 ML IV ONE (11:57)
--- NOTE | 2019-05-17 13:47 | EEG ---
ELECTROENCEPHALOGRAPHY: DATE OF STUDY: 05/17/19 DATE READ: 05/17/19 ORDERED BY: Dr. Tasneem Clay. CLINICAL PROBLEM: Ms. Megan Bautista is a 59-year-old female who presented with encephalopathy, in confusion state. She was found to have seizure-like activity. This EEG was obtained to evaluate for epileptiform abnormalities or electrographic seizures. MEDICATIONS: 1. Heparin. 2. Keppra. 3. Ativan. 4. Protonix. CLINICAL STATE: Encephalopathic. REPORT: The most prominent feature of this recording was clusters of high amplitude triphasic waves that are frontally predominant, intermixed with sharp and slow wave potentials in the frontal region that are irregular and asymmetric lasting for approximately 90 to 120 seconds. This interburst between these discharges was background that lacked organization or clearly defined anterior- posterior voltage and frequency gradients. There was no discernible posterior dominant rhythm. Instead, the background consisted of diffuse medium amplitude polymorphic alpha and theta slowing. There were rare vertex waves seen during the recording suggesting some retained sleep and drowsy changes. At the end of the recording, there were stimulus-induced rhythmic periodic discharges mostly with morphology consistent with triphasic waves seen in the frontal region bilaterally and symmetrically. There were no clear electrographic seizures or clinical seizures during this recording. Hyperventilation and photic stimulation were not obtained. Single electrode EKG showed sinus tachycardia with a rate of 100 beats per minute. CLINICAL IMPRESSION: This is an abnormal EEG due to the presence of triphasic waves, stimulus-induced rhythmic periodic ictal discharges, and diffuse slowing. These findings are suggestive of moderate diffuse encephalopathy with triphasic waves typically seen in a metabolic disturbance. Stimulus-induced rhythmic periodic ictal discharges can possibly be seen in postictal state and can increase the risk for electrographic seizures. [id number]/[facility] #: [id number] [facility]
[2019-05-17] MEDS ORDERED: Diazepam INJ CARPUJECT* 5 MG/ML IV ONE (13:53)
[2019-05-17] MEDS ORDERED: Fosphenytoin(*) 1,000 MG in NS 0.9% 50 ML* 50 ML IVPB ONE (14:00)
--- NOTE | 2019-05-17 14:03 | PN ---
Subjective Date of Service: 05/17/19 Length of Stay: 1 Days Neurology is following for seizures. Interval History: The patient has intervals where she is awake and interactive, but then minimally responsive. She also has intermittent tachycardia and tachypnea lasting for minutes. She is currently sleeping and groans when attempting to wake. She appears comfortable and is hemodynamically stable. at bedside stated that she responded to him and called his name earlier today. Labs, imaging, and other diagnostic testing: - WBC: 5.2, hemoglobin 10, hematocrit: 30, Platelet count: 261, INR: 1.08, 25.6. - Urinalysis: Urine Leukocyte Esterase: 3+, Urine WBC: 2+ - MRI brain with and without contrast 05/17/19: Bilateral mastoid effusions. No restricted diffusion to suggest acute infarct. No abnormal enhancement, vasogenic edema, or space-occupying lesion to suggest metastatic disease to the brain. - EEG 05/17/19: Triphasic waves, diffuse slowing, and intermittent sharp and slow wave discharges in the frontal region bilaterally. No clear electrographic seizures. - Head/Neck CTA 05/17/19: no ICA stenosis. No aneurysm vascular malformation, occlusion, or stenosis of the visualized intracranial circulation. - CT head 05/17/19: no acute intracranial pathology. Review of Systems: The patient cannot provide a ROS due to encephalopathy. Family History: Unchanged from Admission Social History: Unchanged from Admission Past Medical History: Unchanged from Admission Objective Active Medications: Heparin Sodium (Porcine) (Heparin Vial(*)) 5,000 units SUBCUT Q8HR [facility] Last Admin: 05/17/19 06:12 Dose: 5,000 units Sodium Chloride (Ns 0.9% 1000 Ml) 1,000 mls @ 75 mls/hr IV PER RATE [facility] Last Admin: 05/16/19 21:16 Dose: 75 mls/hr Levetiracetam (Keppra Iv Premix*) 1,000 mg in 100 mls @ 400 mls/hr IVPB Q12H [facility] Last Admin: 05/17/19 01:37 Dose: 400 mls/hr Fosphenytoin Sodium 1,000 mg/ (Sodium Chloride) 70 mls @ 280 mls/hr IVPB ONCE ONE Stop: 05/17/19 14:03 Lorazepam (Ativan Inj*) 2 mg IV PUSH Q4H PRN PRN Reason: seizure lasting >5min Miscellaneous (Ativan Pyxis Triana) 1 ea N/A .ATIVAN IV TRIANA PRN PRN Reason: PYXIS TRIANA Ondansetron HCl (Zofran Tab*) 8 mg PO Q8H PRN PRN Reason: NAUSEA/VOMITING Pantoprazole Sodium (Protonix Iv*) 40 mg IV Q24H [facility] Last Admin: 05/16/19 18:10 Dose: 40 mg Vital Signs 05/16/19 05/16/19 05/16/19 14:00 14:09 14:16 Temperature Pulse Rate 104 93 Respiratory 20 11 9 Rate Blood Pressure 110/69 (mmHg) O2 Sat by Pulse 93 92 Oximetry 05/16/19 05/16/19 05/16/19 14:46 15:00 15:16 Temperature Pulse Rate 86 88 92 Respiratory 10 16 15 Rate Blood Pressure 113/78 94/62 (mmHg) O2 Sat by Pulse 96 94 94 Oximetry 05/16/19 05/16/19 05/16/19 15:46 16:00 16:16 Temperature Pulse Rate 91 83 87 Respiratory 11 12 11 Rate Blood Pressure 100/62 100/66 (mmHg) O2 Sat by Pulse 94 93 94 Oximetry 05/16/19 05/16/19 05/16/19 17:00 17:11 17:13 Temperature Pulse Rate 116 110 Respiratory 13 17 Rate Blood Pressure 115/72 (mmHg) O2 Sat by Pulse 96 94 Oximetry 05/16/19 05/16/19 05/16/19 17:15 17:21 17:30 Temperature 98.2 F 97.1 F 98.1 F Pulse Rate 121 89 103 Respiratory 15 12 11 Rate Blood Pressure 118/77 100/66 86/52 (mmHg) O2 Sat by Pulse 96 93 94 Oximetry 05/16/19 05/16/19 05/16/19 17:45 18:00 18:15 Temperature 98.1 F 97.9 F 97.9 F Pulse Rate 86 86 87 Respiratory 12 10 10 Rate Blood Pressure 100/70 109/68 96/62 (mmHg) O2 Sat by Pulse 95 93 94 Oximetry 05/16/19 05/16/19 05/16/19 18:30 18:45 19:00 Temperature 97.9 F 97.9 F 97.9 F Pulse Rate 88 87 83 Respiratory 13 8 10 Rate Blood Pressure 88/56 104/65 93/61 (mmHg) O2 Sat by Pulse 94 94 95 Oximetry 05/16/19 05/16/19 05/16/19 19:15 19:30 19:45 Temperature 97.9 F 97.9 F 98.1 F Pulse Rate 78 78 79 Respiratory 9 12 12 Rate Blood Pressure 94/62 96/64 94/61 (mmHg) O2 Sat by Pulse 94 96 96 Oximetry 05/16/19 05/16/19 05/16/19 20:00 20:15 20:30 Temperature 98.1 F 98.1 F 98.1 F Pulse Rate 81 78 76 Respiratory 11 10 11 Rate Blood Pressure 98/59 103/62 96/62 (mmHg) O2 Sat by Pulse 95 95 94 Oximetry 05/16/19 05/16/19 05/16/19 20:45 21:00 21:15 Temperature 98.1 F 98.1 F 98.1 F Pulse Rate 80 78 78 Respiratory 11 12 12 Rate Blood Pressure 94/62 97/84 103/60 (mmHg) O2 Sat by Pulse 95 96 96 Oximetry 05/16/19 05/16/19 05/16/19 21:30 21:45 22:00 Temperature 98.2 F 98.2 F 98.2 F Pulse Rate 80 76 79 Respiratory 9 12 10 Rate Blood Pressure 96/56 89/59 94/60 (mmHg) O2 Sat by Pulse 96 95 96 Oximetry 05/16/19 05/16/19 05/16/19 22:15 22:30 22:45 Temperature 98.2 F 98.2 F 98.2 F Pulse Rate 80 74 73 Respiratory 11 12 10 Rate Blood Pressure 96/60 101/56 106/64 (mmHg) O2 Sat by Pulse 96 96 96 Oximetry 05/16/19 05/16/19 05/16/19 23:00 23:04 23:05 Temperature 98.2 F 98.2 F 98.2 F Pulse Rate 77 80 79 Respiratory 11 15 12 Rate Blood Pressure 89/58 100/55 (mmHg) O2 Sat by Pulse 96 96 96 Oximetry 05/16/19 05/16/19 05/16/19 23:15 23:30 23:45 Temperature 98.2 F 98.4 F 98.4 F Pulse Rate 79 71 77 Respiratory 12 12 13 Rate Blood Pressure 94/64 96/61 99/60 (mmHg) O2 Sat by Pulse 96 96 96 Oximetry 05/17/19 05/17/19 05/17/19 00:00 00:15 00:30 Temperature 98.4 F 98.4 F 98.4 F Pulse Rate 78 77 77 Respiratory 12 13 11 Rate Blood Pressure 101/63 101/65 101/66 (mmHg) O2 Sat by Pulse 95 96 96 Oximetry 05/17/19 05/17/19 05/17/19 00:45 01:00 01:15 Temperature 98.6 F 98.6 F 98.8 F Pulse Rate 79 84 76 Respiratory 13 12 11 Rate Blood Pressure 96/57 108/62 107/63 (mmHg) O2 Sat by Pulse 96 96 95 Oximetry 05/17/19 05/17/19 05/17/19 01:30 01:45 02:00 Temperature 98.8 F 98.8 F 98.8 F Pulse Rate 79 104 86 Respiratory 13 18 14 Rate Blood Pressure 103/63 110/71 115/67 (mmHg) O2 Sat by Pulse 95 95 93 Oximetry 05/17/19 05/17/19 05/17/19 02:15 02:30 02:45 Temperature 99.0 F 99.0 F 99.0 F Pulse Rate 90 82 102 Respiratory 14 13 16 Rate Blood Pressure 111/64 109/61 111/74 (mmHg) O2 Sat by Pulse 95 96 96 Oximetry 05/17/19 05/17/19 05/17/19 03:00 03:15 03:30 Temperature 99.0 F 99.0 F 99.0 F Pulse Rate 116 87 82 Respiratory 18 14 15 Rate Blood Pressure 126/74 106/69 104/61 (mmHg) O2 Sat by Pulse 95 95 96 Oximetry 05/17/19 05/17/19 05/17/19 03:45 03:50 04:00 Temperature 99.1 F 99.1 F Pulse Rate 84 89 Respiratory 13 14 15 Rate Blood Pressure 97/65 117/75 (mmHg) O2 Sat by Pulse 97 98 Oximetry 05/17/19 05/17/19 05/17/19 04:15 04:30 04:45 Temperature 99.1 F 99.1 F 99.1 F Pulse Rate 86 85 83 Respiratory 12 13 12 Rate Blood Pressure 105/63 95/61 104/67 (mmHg) O2 Sat by Pulse 97 97 98 Oximetry 05/17/19 05/17/19 05/17/19 05:00 05:15 05:30 Temperature 99.1 F 97.9 F 99.1 F Pulse Rate 79 88 85 Respiratory 13 15 14 Rate Blood Pressure 97/62 120/71 115/71 (mmHg) O2 Sat by Pulse 98 97 98 Oximetry 05/17/19 05/17/19 05/17/19 05:39 05:45 06:00 Temperature 99.1 F 99.1 F Pulse Rate 86 82 Respiratory 15 15 17 Rate Blood Pressure 118/74 120/73 (mmHg) O2 Sat by Pulse 98 97 Oximetry 05/17/19 05/17/19 05/17/19 06:16 06:30 06:45 Temperature 99.1 F 99.1 F 99.1 F Pulse Rate 91 108 110 Respiratory 23 13 12 Rate Blood Pressure 123/71 93/52 111/66 (mmHg) O2 Sat by Pulse 97 97 97 Oximetry 05/17/19 05/17/19 05/17/19 07:00 07:15 07:30 Temperature 99.0 F 99.0 F 99.0 F Pulse Rate 90 81 80 Respiratory 15 16 15 Rate Blood Pressure 105/64 102/58 106/67 (mmHg) O2 Sat by Pulse 96 97 97 Oximetry 05/17/19 05/17/19 05/17/19 07:45 08:00 08:15 Temperature 99.0 F 99.0 F 99.0 F Pulse Rate 93 106 95 Respiratory 15 18 16 Rate Blood Pressure 110/70 113/75 115/66 (mmHg) O2 Sat by Pulse 98 98 97 Oximetry 05/17/19 05/17/19 05/17/19 08:30 08:45 09:00 Temperature 99.1 F 99.1 F 99.1 F Pulse Rate 86 109 83 Respiratory 14 17 14 Rate Blood Pressure 110/74 115/75 109/67 (mmHg) O2 Sat by Pulse 98 98 98 Oximetry 05/17/19 05/17/19 05/17/19 09:15 09:30 09:45 Temperature 99.1 F 99.1 F 99.1 F Pulse Rate 89 86 90 Respiratory 16 14 16 Rate Blood Pressure 109/77 109/67 114/76 (mmHg) O2 Sat by Pulse 98 98 99 Oximetry 05/17/19 05/17/19 05/17/19 10:00 10:15 10:31 Temperature 99.1 F 99.1 F 99.1 F Pulse Rate 85 91 95 Respiratory 14 16 17 Rate Blood Pressure 120/69 114/77 92/60 (mmHg) O2 Sat by Pulse 99 97 98 Oximetry 05/17/19 05/17/19 05/17/19 10:46 11:00 11:15 Temperature 99.0 F 99.0 F 99.0 F Pulse Rate 92 85 82 Respiratory 17 15 15 Rate Blood Pressure 114/92 113/50 121/58 (mmHg) O2 Sat by Pulse 98 98 98 Oximetry 05/17/19 05/17/19 12:49 13:00 Temperature 99.0 F 99.0 F Pulse Rate 87 Respiratory 20 Rate Blood Pressure 112/74 (mmHg) O2 Sat by Pulse 100 Oximetry Intake and Output Last 24 Hours 05/15/19 05/16/19 05/17/19 05/18/19 06:59 06:59 06:59 06:59 Intake Total 3334 Output Total 3160 555 Balance 174 -555 Weight 127 lb 9 oz 127 lb 9 oz Intake: IV Fluids 3234 Normal saline 2234 IVPB 100 Potassium 100 Oral 0 Output: Urine 1400 Conteh 1760 555 Other: Date of Last Bowel 05/17/19 Movement # Bowel Movements 1 Estimated Stool Amount Medium Oxygen Devices in Use Now: Nasal Cannula Neurology Exam: General: Ill appearing frail female in no acute distress. HEENT: Normocephelic/atraumatic, sclera anicteric, mucous membranes moist Neck: Supple Chest: Clear to auscultation bilaterally Cardiovascular: Regular rate and rhythm without murmurs, rubs, gallops Abdomen: Soft, non-tender/non-distended Extremities: No clubbing, cyanosis, or edema Neurological Findings: Sleeping. She wakes intermittently and follows one step command but then falls back asleep. Unable to assess speech or language functions. Cranial Nerve: PERRL, EOM intact, VFF, no nystagmus, no facial asymmetry Motor: She is able to flex her elbows and knees to distal noxious stimuli. Sensation: withdrew to distal noxious stimuli on all 4 extremities. Deep Tendon Reflex: 2+ symmetric in the upper/lower extremities, Babinski - down going Unable to participate. Gait: n/a Result Diagrams: 05/17/19 05:13 05/17/19 05:13 Microbiology and Other Data: Microbiology 05/16/19 17:30 Nasal Screen MRSA (PCR) - Final Nasal Mrsa Not Detected Assessment/Plan Mrs. Megan Bautista is a 59-year-old frail female who has history of bladder cancer s/p radiation and chemotherapy, recent UTI where she was treated with Bactrim (last dose was on 05/15/19), chronic pain on narcotic and morphine therapy that has been held since admission on 05/16/2019, who presented to [facility] [place] yesterday with confusion. She was found to have left then right eye deviation and obtundation. EEG showed diffuse triphasic waves with sharp frontal discharges with high suspicion for nonconvulsive status epilepticus. She was loaded with levetiracetam 1,000 mg and maintained at a dose of 1,000 mg IV twice daily. A repeat EEG on 05/17/19 showed improvement of the triphasic waves but still two intervals of semirhythmic discharges at a frequency of 1-2 Hz. This pattern is less likely to be associated with a nonconvulsive pattern. However, the patient's examination fluctuates throughout the day today. She was initially more awake and interactive, but then develops symptoms of tachycardia and tachyapnea associated with obtundation. An MRI brain with and without contrast showed no evidence of stroke or metastatic disease. An LP is scheduled today. 1. 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 2. Acute encephalopathy, most likely due to seizures. Rule out infectious or paraneoplastic encephalopathy. 3. Mild hyperammonemia 4. Rule out UTI 5. Dehydration and anemia. Recommendations: - Loaded with fosphentoin 1,000 mg IV x 1. - Obtain a phenytoin level in 2 hours - Repeat an Ammonia level and treat if over 60 (triphasic waves on EEG are suggestive of a metabolic encephalopathy) - Continue levetiracetam 1,000 mg IV twice daily. - Obtain a levetiracetam level. If less than 30, increase the dose to 1,250 mg IV twice daily. - Lumbar puncture to evaluate for cell count, culture, protein, glucose, paraneoplastic panel - Added a paraneoplastic panel in the serum and will add to the CSF. - Neuro checks every 2 hours - Continue IV fluids - Treat any seizure like activity lasting more than 5 minutes with lorazepam 2 mg IV x 1. - I will closely follow.
[2019-05-17] MEDS: Pantoprazole IV* 40 MG IV SCH (14:35)
--- NOTE | 2019-05-17 15:25 | OP ---
Operative Report - Blank - Operative Report Date of Operation: 05/17/19 Note: Lumbar Puncture Procedure Note Pre-operative Diagnosis: encephalopathy, rule out viral encephalitis. Post-operative Diagnosis: same Indications: Diagnostic Procedure Details Consent: Informed consent was obtained. Time out was performed with NICOLASA Vidal at 14:50. A female artificial leather calender operator was present. Risks of the procedure were discussed with Mr. Bautista and consent was obtained from him as the patient is unable to provide consent. We discussed the risk of infection, bleeding, pain and headache. Under sterile conditions the patient was positioned in the right lateral decubitus position in a semi- position. Betadine solution and sterile drapes were utilize . A 22-gauge 3.5-inch spinal needle was inserted at the L3- 4 interspace. Findings 5 cc of clear spinal fluid was obtained Opening Pressure: 19 cm H2O pressure Complications: none Condition: stable Plan Obtain CSF laboratory data: cell count and differential, gram stain and culture , glucose, protein, paraneoplastic panel, cryptococcus, encephalitis panel. Monico Khan MD 05/17/2019 15:51 PM
[2019-05-17 15:27] LABS: Body Fluid Source Cerebral Spinal
[2019-05-17 15:45] LABS: CSF Glucose 44 mg/dL (40-70)
[2019-05-17] MEDS: Morphine INJ* 2 MG/ML 1 ML SYRINGE (TWO MG - NEW SYRINGE VERSION) IV PRN (22:19)
[2019-05-18] MEDS: levETIRAcetam 1000MG IVPREMIX* 1,000 MG/100 ML BAG IVPB SCH (02:29)
[2019-05-18] MEDS: Morphine INJ* 2 MG/ML 1 ML SYRINGE (TWO MG - NEW SYRINGE VERSION) IV PRN (02:29)
--- NOTE | 2019-05-18 05:23 | PN ---
Hospitalist Progress Note Date of Service: 05/18/19 Cross Cover Pt in sig pain overnight moaning and possibly in mild opiate withdrawal, she is on scheduled high dose morphine at home, restart IV low dose morphine PRN
[2019-05-18] MEDS: Heparin VIAL(*) 5000 UNITS/ML VIAL (FIVE THOUSAND) SUBCUT SCH ×3 (05:30→20:54)
--- NOTE | 2019-05-18 10:51 | PN ---
Subjective Date of Service: 05/18/19 Interval History: Ms. Bautista is feeling fine this morning. She is awake, drowsy, but able to participate in conversation. She denies feeling tired. She is asking for a cup of tea. Offers no other complaints. Reports her pain is at baseline. Denies dizziness or headache. No concerns from nursing. Family History: Unchanged from Admission Social History: Unchanged from Admission Past Medical History: Unchanged from Admission Objective Active Medications: Heparin Sodium (Porcine) (Heparin Vial(*)) 5,000 units SUBCUT Q8HR [facility] Sodium Chloride (Ns 0.9% 1000 Ml) 1,000 mls @ 75 mls/hr IV PER RATE [facility] Levetiracetam (Keppra Iv Premix*) 1,000 mg in 100 mls @ 400 mls/hr IVPB Q12H [facility] Lorazepam (Ativan Inj*) 2 mg IV PUSH Q4H PRN seizure lasting >5min Morphine Sulfate (Morphine Inj (Syringe))*) 2 mg IV Q4H PRN PAIN - SEVERE Ondansetron HCl (Zofran Tab*) 8 mg PO Q8H PRN NAUSEA/VOMITING Pantoprazole Sodium (Protonix Iv*) 40 mg IV Q24H [facility] Vital Signs - 8 hr 05/18/19 05/18/19 05/18/19 03:00 03:15 03:30 Temperature 98.6 F 98.6 F 98.6 F Pulse Rate 82 83 82 Respiratory 17 15 16 Rate Blood Pressure 102/60 99/58 94/54 (mmHg) O2 Sat by Pulse 100 100 99 Oximetry 05/18/19 05/18/19 05/18/19 03:45 04:00 04:15 Temperature 98.6 F 98.6 F 98.6 F Pulse Rate 95 99 85 Respiratory 18 16 17 Rate Blood Pressure 106/66 138/77 112/71 (mmHg) O2 Sat by Pulse 99 99 99 Oximetry 05/18/19 05/18/19 05/18/19 04:30 04:45 05:00 Temperature 98.6 F 98.6 F 98.8 F Pulse Rate 86 91 86 Respiratory 18 16 16 Rate Blood Pressure 115/72 116/63 106/68 (mmHg) O2 Sat by Pulse 99 99 99 Oximetry 05/18/19 05/18/19 05/18/19 05:15 05:30 05:45 Temperature 98.8 F 98.8 F 98.8 F Pulse Rate 93 92 83 Respiratory 19 21 21 Rate Blood Pressure 117/63 103/68 105/59 (mmHg) O2 Sat by Pulse 97 95 97 Oximetry 05/18/19 05/18/19 05/18/19 05:52 06:00 06:15 Temperature 98.8 F 98.8 F Pulse Rate 85 87 Respiratory 15 16 16 Rate Blood Pressure 112/76 117/70 (mmHg) O2 Sat by Pulse 97 95 Oximetry 05/18/19 05/18/19 05/18/19 06:30 06:45 07:00 Temperature 98.8 F 98.8 F 99.0 F Pulse Rate 84 83 86 Respiratory 17 19 17 Rate Blood Pressure 97/64 99/62 108/69 (mmHg) O2 Sat by Pulse 95 96 98 Oximetry 05/18/19 05/18/19 05/18/19 07:15 07:30 07:45 Temperature 98.8 F 99.0 F 99.0 F Pulse Rate 104 88 91 Respiratory 12 17 18 Rate Blood Pressure 115/71 108/64 105/65 (mmHg) O2 Sat by Pulse 96 99 99 Oximetry 05/18/19 05/18/19 05/18/19 08:00 08:15 08:31 Temperature 99.0 F 99.0 F 99.0 F Pulse Rate 80 77 91 Respiratory 17 14 16 Rate Blood Pressure 111/52 103/61 97/68 (mmHg) O2 Sat by Pulse 99 100 99 Oximetry 05/18/19 05/18/19 05/18/19 08:46 09:00 09:15 Temperature 99.1 F 99.0 F 99.0 F Pulse Rate 81 105 95 Respiratory 18 21 16 Rate Blood Pressure 122/73 113/71 103/68 (mmHg) O2 Sat by Pulse 99 98 97 Oximetry 05/18/19 09:30 Temperature 99.1 F Pulse Rate 100 Respiratory 18 Rate Blood Pressure 112/62 (mmHg) O2 Sat by Pulse 96 Oximetry Oxygen Devices in Use Now: Nasal Cannula Appearance: Middle-aged female sitting in bed in NAD Neck: NL Appearance and Movements; NL JVP, Trachea Midline Respiratory: Symmetrical Chest Expansion and Respiratory Effort, Clear to Auscultation Cardiovascular: NL Sounds; No Murmurs; No JVD, RRR Abdominal: NL Sounds; No Tenderness; No Distention Extremities: - - +2 pitting BLE Neurological: Alert and Oriented x 3 Lines/Tubes/Other Access: Clean, Dry and Intact Peripheral IV Result Diagrams: 05/17/19 05:13 05/17/19 05:13 Assess/Plan/Problems-Billing Assessment: Ms. Bautista is a 59 yo F with PMH of chronic pain on narcotics, HLD, GERD, TIA, bladder cancer; who presented to the ED with AMS and was found to have an abnormal EEG concerning for status epilepticus, obtunded after receiving anticonvulsants. - Patient Problems (1) Status epilepticus Code(s): G40.901 - EPILEPSY, UNSP, NOT INTRACTABLE, WITH STATUS EPILEPTICUS Comment: - Found on the floor at home by , confused and with gaze abnormality - Mental status improved today - EEG in ED showing findings concerning for nonconvulsive status epilepticus; loaded on lorazepam and Keppra - No evidence of UTI or other significant lab abnormalities - Appreciate Neuro consult; recommends continuing Keppra, MRI brain with and without contrast, slowly resuming pain medications - Repeat EEG yesterday showing possible postictal state, no new seizure activity - LP performed yesterday by Neurology; normal results so far - Loaded with fosphenytoin 05/17 - MRI brain unremarkable - Neuro checks - Continue Keppra, lorazepam PRN for breakthrough seizures (2) Anemia Code(s): D64.9 - ANEMIA, UNSPECIFIED Comment: - Hgb 10, down from 15 in 2018 - No iron or B12 deficiencies - Check stool occult (3) Chronic pain Code(s): G89.29 - OTHER CHRONIC PAIN Comment: - Hold morphine and Percocet until she is more awake - Monitor for opioid withdrawal - Continue IV morphine PRN (4) Hyperlipidemia Code(s): E78.5 - HYPERLIPIDEMIA, UNSPECIFIED Comment: - Hold simvastatin (5) GERD (gastroesophageal reflux disease) Code(s): K21.9 - GASTRO-ESOPHAGEAL REFLUX DISEASE WITHOUT ESOPHAGITIS Comment : - Continue pantoprazole (6) DVT prophylaxis Code(s): Z29.9 - ENCOUNTER FOR PROPHYLACTIC MEASURES, UNSPECIFIED Comment: - Heparin SQ (7) Full code status Code(s): Z78.9 - OTHER SPECIFIED HEALTH STATUS Comment: Status and Disposition: Inpatient. Remains in ICU d/t sedation. Anticipate d/c home when medically stable. Attending: Lea Schultz
--- NOTE | 2019-05-18 12:08 | PN ---
Subjective Date of Service: 05/18/19 Length of Stay: 2 Days Neurology is following for suspected nonconvulsive seizures. Interval History: She is drowsy but responds appropriately. She was complaining of abdominal pain that responded to morphine. She was on high dose morphine at home. She responded well to the morphine overnight. She is no longer complaining of pain but is requesting to have the urinary catheter removed. The nurse plans to get her up in a chair and remove the urinary catheter. The patient seemed to have responded better to fosphenytoin than levetiracetam. She became more alert and awake after fosphenytoin was given yesterday. The patient was initially started on a cephalosporin for her urinary tract infection but then switched to Sulfamethoxazole-TMP. She took a 5-day course and still has 2 days remaining. Mr. Bautista gathered all her home medication and brought them today. I reviewed the patient's medication with him. She is on quite high doses of morphine. She takes Morphine sulfate ER 30 mg and 15 mg. She is also on oxycodone 5 mg tablets to take ever 6 hours. Labs, imaging, and other diagnostic testing: - WBC: 5.2, hemoglobin 10, hematocrit: 30, Platelet count: 261, INR: 1.08, 25.6. - CSF: WBC: 2, total cell count: 0. Glucose: 44. Protein: 28. Ammonia: 45. Phenytoin level 14. - Urinalysis: Urine Leukocyte Esterase: 3+, Urine WBC: 2+ - MRI brain with and without contrast 05/17/19: Bilateral mastoid effusions. No restricted diffusion to suggest acute infarct. No abnormal enhancement, vasogenic edema, or space-occupying lesion to suggest metastatic disease to the brain. - EEG 05/17/19: Triphasic waves, diffuse slowing, and intermittent sharp and slow wave discharges in the frontal region bilaterally. No clear electrographic seizures. - Head/Neck CTA 05/17/19: no ICA stenosis. No aneurysm vascular malformation, occlusion, or stenosis of the visualized intracranial circulation. - CT head 05/17/19: no acute intracranial pathology. Review of Systems: Denied CP, SOB, or palpitations. Family History: Unchanged from Admission Social History: Unchanged from Admission Past Medical History: Unchanged from Admission Objective Active Medications: Heparin Sodium (Porcine) (Heparin Vial(*)) 5,000 units SUBCUT Q8HR YESI Last Admin: 05/18/19 05:30 Dose: 5,000 units Levetiracetam (Keppra Iv Premix*) 500 mg in 100 mls @ 400 mls/hr IV ONCE ONE Stop: 05/18/19 14:14 Lorazepam (Ativan Inj*) 2 mg IV PUSH Q4H PRN PRN Reason: seizure lasting >5min Miscellaneous (Ativan Pyxis Baker) 1 ea N/A .ATIVAN IV BAKER PRN PRN Reason: PYXIS BAKER Morphine Sulfate (Morphine Inj (Syringe))*) 2 mg IV Q4H PRN PRN Reason: PAIN - SEVERE Last Admin: 05/18/19 02:29 Dose: 2 mg Ondansetron HCl (Zofran Tab*) 8 mg PO Q8H PRN PRN Reason: NAUSEA/VOMITING Pantoprazole Sodium (Protonix Iv*) 40 mg IV Q24H [facility] Last Admin: 05/17/19 14:35 Dose: 40 mg Phenytoin Sodium (Dilantin Cap(*)) 300 mg PO BEDTIME [facility] Vital Signs 05/17/19 05/17/19 05/17/19 12:49 13:00 13:15 Temperature 99.0 F 99.0 F 99.0 F Pulse Rate 87 87 Respiratory 20 15 Rate Blood Pressure 112/74 119/71 (mmHg) O2 Sat by Pulse 100 100 Oximetry 05/17/19 05/17/19 05/17/19 13:46 14:00 14:15 Temperature 99.1 F 99.1 F 99.1 F Pulse Rate 89 95 107 Respiratory 20 17 21 Rate Blood Pressure 127/66 122/73 142/101 (mmHg) O2 Sat by Pulse 99 98 99 Oximetry 05/17/19 05/17/19 05/17/19 14:31 14:47 14:56 Temperature 99.1 F 99.1 F 99.3 F Pulse Rate 84 110 112 Respiratory 18 0 20 Rate Blood Pressure 118/69 82/57 (mmHg) O2 Sat by Pulse 99 99 97 Oximetry 05/17/19 05/17/19 05/17/19 15:00 15:16 15:31 Temperature 99.3 F 99.1 F 99.1 F Pulse Rate 107 86 91 Respiratory 18 18 17 Rate Blood Pressure 82/57 85/51 93/50 (mmHg) O2 Sat by Pulse 99 97 98 Oximetry 05/17/19 05/17/19 05/17/19 15:46 15:50 16:00 Temperature 99.0 F 98.8 F 98.8 F Pulse Rate 92 84 108 Respiratory 17 17 13 Rate Blood Pressure 80/55 89/45 102/75 (mmHg) O2 Sat by Pulse 98 98 96 Oximetry 05/17/19 05/17/19 05/17/19 16:16 16:31 16:45 Temperature 98.8 F 98.8 F 98.8 F Pulse Rate 113 108 86 Respiratory 16 14 15 Rate Blood Pressure 130/56 107/60 113/54 (mmHg) O2 Sat by Pulse 99 99 99 Oximetry 05/17/19 05/17/19 05/17/19 17:00 17:02 17:17 Temperature 98.8 F 98.8 F 98.8 F Pulse Rate 87 97 81 Respiratory 16 17 17 Rate Blood Pressure (mmHg) O2 Sat by Pulse 99 99 99 Oximetry 05/17/19 05/17/19 05/17/19 17:18 17:31 17:46 Temperature 98.8 F 98.8 F 98.8 F Pulse Rate 79 82 103 Respiratory 15 16 20 Rate Blood Pressure 92/62 106/62 (mmHg) O2 Sat by Pulse 99 99 99 Oximetry 05/17/19 05/17/19 05/17/19 18:00 18:15 18:30 Temperature 98.6 F 98.6 F 98.6 F Pulse Rate 109 119 100 Respiratory 21 25 21 Rate Blood Pressure 128/71 110/86 130/76 (mmHg) O2 Sat by Pulse 99 99 99 Oximetry 05/17/19 05/17/19 05/17/19 18:46 19:00 19:15 Temperature 98.8 F 98.8 F 98.8 F Pulse Rate 88 90 92 Respiratory 19 22 19 Rate Blood Pressure 127/61 127/85 117/71 (mmHg) O2 Sat by Pulse 99 99 99 Oximetry 05/17/19 05/17/19 05/17/19 19:31 19:45 20:00 Temperature 99.0 F 99.0 F 99.0 F Pulse Rate 87 104 100 Respiratory 25 18 19 Rate Blood Pressure 126/60 129/69 (mmHg) O2 Sat by Pulse 99 99 99 Oximetry 05/17/19 05/17/19 05/17/19 20:01 20:15 20:30 Temperature 99.0 F 99.0 F 99.1 F Pulse Rate 97 88 97 Respiratory 30 16 20 Rate Blood Pressure 129/63 123/72 109/65 (mmHg) O2 Sat by Pulse 98 99 99 Oximetry 05/17/19 05/17/19 05/17/19 20:36 20:45 21:00 Temperature 99.0 F 98.8 F Pulse Rate 115 111 Respiratory 20 18 17 Rate Blood Pressure 122/71 134/90 (mmHg) O2 Sat by Pulse 98 97 Oximetry 05/17/19 05/17/19 05/17/19 21:15 21:30 21:45 Temperature 98.8 F 98.8 F 98.8 F Pulse Rate 89 85 86 Respiratory 35 16 31 Rate Blood Pressure 107/70 117/64 118/66 (mmHg) O2 Sat by Pulse 99 99 99 Oximetry 05/17/19 05/17/19 05/17/19 22:00 22:16 22:19 Temperature 98.8 F 98.6 F Pulse Rate 84 112 Respiratory 21 18 20 Rate Blood Pressure 107/64 137/86 (mmHg) O2 Sat by Pulse 99 99 Oximetry 05/17/19 05/17/19 05/17/19 22:30 22:45 23:00 Temperature 98.6 F 98.6 F 98.6 F Pulse Rate 86 90 83 Respiratory 16 16 17 Rate Blood Pressure 117/80 106/68 107/68 (mmHg) O2 Sat by Pulse 99 99 99 Oximetry 05/17/19 05/17/19 05/17/19 23:05 23:15 23:30 Temperature 98.6 F 98.6 F 98.4 F Pulse Rate 81 83 83 Respiratory 23 25 17 Rate Blood Pressure 111/63 121/63 (mmHg) O2 Sat by Pulse 99 99 99 Oximetry 05/17/19 05/18/19 05/18/19 23:45 00:00 00:15 Temperature 98.4 F 98.6 F 98.6 F Pulse Rate 81 89 89 Respiratory 16 19 9 Rate Blood Pressure 115/65 125/69 114/65 (mmHg) O2 Sat by Pulse 99 99 100 Oximetry 05/18/19 05/18/19 05/18/19 00:30 00:45 01:00 Temperature 98.6 F 98.6 F 98.4 F Pulse Rate 80 77 81 Respiratory 17 32 17 Rate Blood Pressure 110/66 105/57 107/65 (mmHg) O2 Sat by Pulse 99 100 100 Oximetry 05/18/19 05/18/19 05/18/19 01:15 01:30 01:45 Temperature 98.4 F 98.4 F 98.4 F Pulse Rate 87 101 85 Respiratory 13 10 0 Rate Blood Pressure 110/57 110/61 119/68 (mmHg) O2 Sat by Pulse 100 99 99 Oximetry 05/18/19 05/18/19 05/18/19 02:00 02:15 02:29 Temperature 98.4 F 98.4 F Pulse Rate 95 90 Respiratory 18 16 18 Rate Blood Pressure 115/70 114/68 (mmHg) O2 Sat by Pulse 98 99 Oximetry 05/18/19 05/18/19 05/18/19 02:30 02:35 02:45 Temperature 98.6 F 98.6 F Pulse Rate 94 85 Respiratory 19 17 17 Rate Blood Pressure 114/74 113/71 (mmHg) O2 Sat by Pulse 99 100 Oximetry 05/18/19 05/18/19 05/18/19 03:00 03:15 03:30 Temperature 98.6 F 98.6 F 98.6 F Pulse Rate 82 83 82 Respiratory 17 15 16 Rate Blood Pressure 102/60 99/58 94/54 (mmHg) O2 Sat by Pulse 100 100 99 Oximetry 05/18/19 05/18/19 05/18/19 03:45 04:00 04:15 Temperature 98.6 F 98.6 F 98.6 F Pulse Rate 95 99 85 Respiratory 18 16 17 Rate Blood Pressure 106/66 138/77 112/71 (mmHg) O2 Sat by Pulse 99 99 99 Oximetry 05/18/19 05/18/19 05/18/19 04:30 04:45 05:00 Temperature 98.6 F 98.6 F 98.8 F Pulse Rate 86 91 86 Respiratory 18 16 16 Rate Blood Pressure 115/72 116/63 106/68 (mmHg) O2 Sat by Pulse 99 99 99 Oximetry 05/18/19 05/18/19 05/18/19 05:15 05:30 05:45 Temperature 98.8 F 98.8 F 98.8 F Pulse Rate 93 92 83 Respiratory 19 21 21 Rate Blood Pressure 117/63 103/68 105/59 (mmHg) O2 Sat by Pulse 97 95 97 Oximetry 05/18/19 05/18/19 05/18/19 05:52 06:00 06:15 Temperature 98.8 F 98.8 F Pulse Rate 85 87 Respiratory 15 16 16 Rate Blood Pressure 112/76 117/70 (mmHg) O2 Sat by Pulse 97 95 Oximetry 05/18/19 05/18/19 05/18/19 06:30 06:45 07:00 Temperature 98.8 F 98.8 F 99.0 F Pulse Rate 84 83 86 Respiratory 17 19 17 Rate Blood Pressure 97/64 99/62 108/69 (mmHg) O2 Sat by Pulse 95 96 98 Oximetry 05/18/19 05/18/19 05/18/19 07:15 07:30 07:45 Temperature 98.8 F 99.0 F 99.0 F Pulse Rate 104 88 91 Respiratory 12 17 18 Rate Blood Pressure 115/71 108/64 105/65 (mmHg) O2 Sat by Pulse 96 99 99 Oximetry 05/18/19 05/18/19 05/18/19 08:00 08:15 08:31 Temperature 99.0 F 99.0 F 99.0 F Pulse Rate 80 77 91 Respiratory 17 14 16 Rate Blood Pressure 111/52 103/61 97/68 (mmHg) O2 Sat by Pulse 99 100 99 Oximetry 05/18/19 05/18/19 05/18/19 08:46 09:00 09:15 Temperature 99.1 F 99.0 F 99.0 F Pulse Rate 81 105 95 Respiratory 18 21 16 Rate Blood Pressure 122/73 113/71 103/68 (mmHg) O2 Sat by Pulse 99 98 97 Oximetry 05/18/19 05/18/19 05/18/19 09:30 09:45 10:00 Temperature 99.1 F 99.3 F 99.5 F Pulse Rate 100 118 121 Respiratory 18 19 21 Rate Blood Pressure 112/62 137/90 (mmHg) O2 Sat by Pulse 96 97 93 Oximetry 05/18/19 05/18/19 05/18/19 10:01 10:15 10:31 Temperature 99.5 F 99.5 F 99.5 F Pulse Rate 126 91 89 Respiratory 23 20 17 Rate Blood Pressure 111/100 116/67 104/64 (mmHg) O2 Sat by Pulse 97 96 95 Oximetry 05/18/19 10:45 Temperature 99.5 F Pulse Rate 98 Respiratory 19 Rate Blood Pressure 119/74 (mmHg) O2 Sat by Pulse 96 Oximetry Intake and Output Last 24 Hours 05/16/19 05/17/19 05/18/19 05/19/19 06:59 06:59 06:59 06:59 Intake Total 3334 1925 0 Output Total 3160 1345 285 Balance 174 580 -285 Weight 127 lb 9 oz 122 lb 8 oz Intake: IV Fluids 3234 1745 Normal saline 2234 1745 IVPB 100 180 Fosphenytion 74 Keppra 106 Potassium 100 Oral 0 0 0 Output: Urine 1400 Conteh 1760 1345 285 Other: Date of Last Bowel 05/17/19 05/17/19 Movement # Bowel Movements 1 Estimated Stool Amount Medium Oxygen Devices in Use Now: Nasal Cannula Neurology Exam: General: Frail appearing female in no distress HEENT: Normocephelic/atraumatic, sclera anicteric, mucous membranes moist Neck: Supple Chest: Clear to auscultation bilaterally Cardiovascular: no edema Extremities: No clubbing, cyanosis, or edema Neurological Findings: Drowsy but easily aroused and alert, and oriented to person, place, and time. She did not know who the president was. Speech: hypophonia and bradykinetic speech Cranial Nerve: PERRL, EOM intact, VFF, no nystagmus, face symmetric bilaterally Motor: antigravity in all four extremity. follows commands well. Sensation: intact to LT/PP bilaterally upper and lower extremities Deep Tendon Reflex: 1+ symmetric in the upper/lower extremities, Babinski - down going Finger to nose, rapid alternating movements intact without tremor, no dysdiadochokinesia Gait: n/a Result Diagrams: 05/17/19 05:13 05/17/19 05:13 Microbiology and Other Data: Microbiology 05/16/19 17:30 Nasal Screen MRSA (PCR) - Final Nasal Mrsa Not Detected Assessment/Plan Mrs. Megan Bautista is a 59-year-old frail female who has history of bladder cancer s/p radiation and chemotherapy, recent diagnosis of UTI where she was started on a cephalosporin but then switched to Bactrim on 05/05/19, chronic pain on oxycodone and morphine therapies, who [place] [facility]. She was witnessed to have rapid forceful left then right eye deviation and altered level of awareness. EEG showed diffuse triphasic waves with sharp frontal discharges with high suspicion for nonconvulsive status epilepticus. She was loaded with levetiracetam 1,000 mg and maintained at a dose of 1,000 mg IV twice daily. A repeat EEG on 05/17/19 showed improvement of the triphasic waves but still two intervals of semi-rhythmic discharges at a frequency of 1-2 Hz. This pattern is less likely to be associated with a nonconvulsive pattern. However, the patient's examination fluctuated throughout the day on 05/17/19 where she was initially more awake and interactive, but then develops symptoms of tachycardia and tachyapnea associated with altered level of awareness. She was loaded with fosphenytoin on 05/08/19. An MRI brain with and without contrast showed no evidence of stroke or metastatic disease. An LP showed no evidence of infection. She appeared more awake and conversing with the examiner and her 05/18/19. 1. 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 2. Acute encephalopathy related to seizures and dehydration. She has no clinical or CSF abnormalities to suspect meningoencephalitis. 3. Mild hyperammonemia, resolved. 4. Rule out UTI- pending urine culture. 5. Dehydration and anemia. Recommendations: - Since she seems to be excessively drowsy and responded better to fosphenytoin , I added phenytoin 300 mg daily to the regimen and will be quickly weaning off levetiracetam. - Reduce levetiracetam to 500 mg today, then discontinue. - Closely monitor for seizure like activity or any sudden onset of altered level of awareness. - We suspect the NCSE was provoked by antibiotic therapy, please add Bactrim to her allergies list. Also, she may not require phenytoin for lifetime, but weaning off the medication should be done as an outpatient. - Pending paraneoplastic panel in the serum and have added to the CSF. Pending cytology to evaluate for leptomeningeal carcinamatosis (less likely since she does not have any cranial neuropathy). - Neuro checks every 2 hours - Continue IV fluids - Treat any seizure like activity lasting more than 5 minutes with lorazepam 2 mg IV x 1. - Please consult PT to evaluate and treat. - I will closely follow. Discussed the case with Rachel and the bedside nurse today.
[2019-05-18] MEDS ORDERED: levETIRAcetam 500 MG IVPREMIX* 500 MG/100 ML BAG IV ONE (14:00)
[2019-05-18 14:59] LABS: ABS Lymphocytes 0.8 10^3/ul (1.0-4.8); ABS Monocytes 0.4 10^3/ul (0-0.8); ABS Neutrophils 5.8 10^3/ul (1.5-7.7); Eosinophil % 0.4 %; Hematocrit 33 % (35-47); Hemoglobin 10.9 g/dL (12.0-16.0); Mean Corpuscular HGB Conc 33 g/dL (31-36); Mean Corpuscular Hemoglobin 32 pg (27-31); Mean Corpuscular Volume 96 fL (80-97); Mean Platelet Volume 7.3 fL (7.4-10.4); Nucleated Red Blood Cells % 0.1; Platelet Count 274 10^3/uL (150-450); Red Blood Count 3.48 10^6 /uL (3.70-4.87); Red Cell Distribution Width 18 % (10-15); White Blood Count 7.1 10^3/uL (3.5-10.8)
[2019-05-18] MEDS: Pantoprazole IV* 40 MG IV SCH (15:30)
[2019-05-18] MEDS: Phenytoin CAP(*) 100 MG CAP.ER PO SCH ×2 (19:59→20:54)
[2019-05-18] MEDS: Morphine TAB Extended Release (*) 15 MG TAB.ER PO SCH (20:51)
[2019-05-19] MEDS: Heparin VIAL(*) 5000 UNITS/ML VIAL (FIVE THOUSAND) SUBCUT SCH ×2 (05:53→13:10)
[2019-05-19] MEDS: Morphine TAB Extended Release (*) 15 MG TAB.ER PO SCH ×2 (09:02→21:03)
--- NOTE | 2019-05-19 10:12 | PN ---
Subjective Date of Service: 05/19/19 Interval History: Patient drowsy but responding to questions appropriately. Patient denies chest pain or shortness of breath. Denies fever or chills. Denies abd pain n/v/d. Lab reviewed- Urine culture with klebsiella oxytoca- susceptible to cephlosporins, resistant to Bactrim for which she was taking for UTI x 5 days prior to admission Family History: Unchanged from Admission Social History: Unchanged from Admission Past Medical History: Unchanged from Admission Objective Active Medications: Heparin Sodium (Porcine) (Heparin Vial(*)) 5,000 units SUBCUT Q8HR [facility] Last Admin: 05/19/19 05:53 Dose: 5,000 units Lorazepam (Ativan Inj*) 2 mg IV PUSH Q4H PRN PRN Reason: seizure lasting >5min Miscellaneous (Ativan Pyxis Triana) 1 ea N/A .ATIVAN IV TRIANA PRN PRN Reason: PYXIS TRIANA Morphine Sulfate (Morphine Inj (Syringe))*) 2 mg IV Q4H PRN PRN Reason: PAIN - SEVERE Last Admin: 05/18/19 02:29 Dose: 2 mg Morphine Sulfate (Ms Contin(*)) 15 mg PO BID [facility] Last Admin: 05/19/19 09:02 Dose: 15 mg Ondansetron HCl (Zofran Tab*) 8 mg PO Q8H PRN PRN Reason: NAUSEA/VOMITING Pantoprazole Sodium (Protonix Iv*) 40 mg IV Q24H [facility] Last Admin: 05/18/19 15:30 Dose: 40 mg Phenytoin Sodium (Dilantin Cap(*)) 300 mg PO BEDTIME [facility] Last Admin: 05/18/19 20:54 Dose: 300 mg Vital Signs - 8 hr 05/19/19 05/19/19 05/19/19 03:30 07:15 08:00 Temperature 97.7 F 98.1 F Pulse Rate 87 86 Respiratory 16 16 16 Rate Blood Pressure 124/66 128/79 (mmHg) O2 Sat by Pulse 99 96 96 Oximetry 05/19/19 09:02 Temperature Pulse Rate Respiratory 16 Rate Blood Pressure (mmHg) O2 Sat by Pulse Oximetry Oxygen Devices in Use Now: None Appearance: drowsy, opens eye to verbal , oriented x 3 , no acute distress Eyes: No Scleral Icterus Ears/Nose/Mouth/Throat: Clear Oropharnyx, Mucous Membranes Moist Neck: NL Appearance and Movements; NL JVP, Trachea Midline Respiratory: Symmetrical Chest Expansion and Respiratory Effort, Clear to Auscultation Cardiovascular: NL Sounds; No Murmurs; No JVD, No Edema Abdominal: NL Sounds; No Tenderness; No Distention Extremities: No Edema, No Clubbing, Cyanosis Skin: No Rash or Ulcers Neurological: Alert and Oriented x 3 Nutrition: Taking PO's Result Diagrams: 05/18/19 14:43 05/17/19 05:13 Microbiology and Other Data: Microbiology 05/16/19 17:30 Nasal Screen MRSA (PCR) - Final Nasal Mrsa Not Detected Assess/Plan/Problems-Billing Assessment: Ms. Bautista is a 59 yo F with PMH of chronic pain on narcotics, HLD, GERD, TIA, bladder cancer; who presented to the ED with AMS and was found to have an abnormal EEG concerning for status epilepticus, obtunded after receiving anticonvulsants. - Patient Problems (1) Status epilepticus Current Visit: Yes Status: Acute Code(s): G40.901 - EPILEPSY, UNSP, NOT INTRACTABLE, WITH STATUS EPILEPTICUS SNOMED Code(s): 635837733 Comment: - Found on the floor at home by , confused and with gaze abnormality - Mental status improved today - EEG in ED showing findings concerning for nonconvulsive status epilepticus; initially loaded with lorazepam and Keppra - Appreciate Neuro consult; recommends weaning keppra, slowly resuming pain medications - Repeat EEG yesterday showing possible postictal state, no new seizure activity - LP performed yesterday by Neurology; normal results so far - Loaded with fosphenytoin 05/17, will continue Dilantin at 300 mg daily - MRI brain unremarkable - Neuro checks - Weaning and stopping Keppra - continue lorazepam PRN for breakthrough seizures -Urine with Klebsiella Oxytoca - was tx'd with Bactrim as outpatient which is resistent will start- (2) UTI (urinary tract infection) Current Visit: Yes Status: Acute Comment: -Could contribute to seizures - Urine positive for Klebsiella Oxytoca- resistent to bactrim which the patient was treated with as outpatient - will start ceftriaxone- ok with neurology for cephlosporins (3) Anemia Current Visit: Yes Status: Acute Code(s): D64.9 - ANEMIA, UNSPECIFIED SNOMED Code(s): 587966469 Comment: - Hgb 10, down from 15 in 2018 - B12 deficiencies - stool occult- negative - Iron low at 37, TIBC low 120 (4) Chronic pain Current Visit: Yes Status: Acute Code(s): G89.29 - OTHER CHRONIC PAIN SNOMED Code(s): 70865971 Comment: - Hold Percocet until she is more awake - Monitor for opioid withdrawal - Resuming home morphine dosing slowly,d/t mentation (5) GERD (gastroesophageal reflux disease) Current Visit: Yes Status: Acute Code(s): K21.9 - GASTRO-ESOPHAGEAL REFLUX DISEASE WITHOUT ESOPHAGITIS SNOMED Code(s): 528842823 Comment: - Continue pantoprazole (6) Hyperlipidemia Current Visit: Yes Status: Acute Code(s): E78.5 - HYPERLIPIDEMIA, UNSPECIFIED SNOMED Code(s): 24576711 Comment: - Hold simvastatin (7) DVT prophylaxis Current Visit: Yes Status: Acute Code(s): Z29.9 - ENCOUNTER FOR PROPHYLACTIC MEASURES, UNSPECIFIED SNOMED Code(s): 859479917 Comment: - Heparin SQ (8) Full code status Current Visit: Yes Status: Acute Code(s): Z78.9 - OTHER SPECIFIED HEALTH STATUS SNOMED Code(s): 153167167 Comment: Status and Disposition: Inpatient. Remains in ICU d/t sedation. Anticipate d/c home when medically stable.
[2019-05-19] MEDS: Acetaminophen TAB* 325 MG PO PRN (12:44)
[2019-05-19] MEDS: cefTRIAXone(*) 1 GM in NS 0.9% 50 ML* 50 ML IVPB SCH (13:11)
--- NOTE | 2019-05-19 14:57 | PN ---
Subjective Date of Service: 05/19/19 Length of Stay: 3 Days Neurology is following [] for the evaluation and management of [] Interval History: She is more awake and is asking to walk to the bathroom. She stated, "no one is letting me go and use the restroom." She is still drowsy, but responds better than yesterday. She denied any focal weakness or paresthesia. She denied any headaches or visual disturbance. Rossy started the patient on Rocephin. She received the last dose of levetiracetam yesterday. She is off levetiracetam. She is still on phenytoin. Labs, imaging, and other diagnostic testing: - WBC: 5.2, hemoglobin 10, hematocrit: 30, Platelet count: 261, INR: 1.08, 25.6. - CSF: WBC: 2, total cell count: 0. Glucose: 44. Protein: 28. Ammonia: 45. Phenytoin level 14. - Urinalysis: Urine Leukocyte Esterase: 3+, Urine WBC: 2+ - Urine culture: positive for K. Oxytoca. - MRI brain with and without contrast 05/17/19: Bilateral mastoid effusions. No restricted diffusion to suggest acute infarct. No abnormal enhancement, vasogenic edema, or space-occupying lesion to suggest metastatic disease to the brain. - EEG 05/17/19: Triphasic waves, diffuse slowing, and intermittent sharp and slow wave discharges in the frontal region bilaterally. No clear electrographic seizures. - Head/Neck CTA 05/17/19: no ICA stenosis. No aneurysm vascular malformation, occlusion, or stenosis of the visualized intracranial circulation. - CT head 05/17/19: no acute intracranial pathology. Review of Systems: Denied CP, SOB, or palpitations. Family History: Unchanged from Admission Social History: Unchanged from Admission Past Medical History: Unchanged from Admission Objective Active Medications: Acetaminophen (Tylenol Tab*) 650 mg PO Q6H PRN PRN Reason: MILD PAIN or TEMP > 100.4 Last Admin: 05/19/19 12:44 Dose: 650 mg Heparin Sodium (Porcine) (Heparin Vial(*)) 5,000 units SUBCUT Q8HR YESI Last Admin: 05/19/19 13:10 Dose: 5,000 units Ceftriaxone Sodium 1 gm/ (Sodium Chloride) 50 mls @ 100 mls/hr IVPB Q24H YESI Last Admin: 05/19/19 13:11 Dose: 100 mls/hr Lorazepam (Ativan Inj*) 2 mg IV PUSH Q4H PRN PRN Reason: seizure lasting >5min Miscellaneous (Ativan Pyxis Triana) 1 ea N/A .ATIVAN IV TRIANA PRN PRN Reason: PYXIS TRIANA Morphine Sulfate (Morphine Inj (Syringe))*) 2 mg IV Q4H PRN PRN Reason: PAIN - SEVERE Last Admin: 05/18/19 02:29 Dose: 2 mg Morphine Sulfate (Ms Contin(*)) [address] [facility] Last Admin: 05/19/19 09:02 Dose: 15 mg Ondansetron HCl (Zofran Tab*) 8 mg PO Q8H PRN PRN Reason: NAUSEA/VOMITING Pantoprazole Sodium (Protonix Iv*) [address] [facility] Last Admin: 05/18/19 15:30 Dose: 40 mg Phenytoin Sodium (Dilantin Cap(*)) [address] [facility] Last Admin: 05/18/19 20:54 Dose: 300 mg Vital Signs 05/18/19 05/18/19 05/18/19 14:54 20:00 20:51 Temperature Pulse Rate Respiratory 19 17 18 Rate Blood Pressure (mmHg) O2 Sat by Pulse Oximetry 05/18/19 05/18/19 05/18/19 21:14 22:25 23:37 Temperature 97.6 F 98.0 F Pulse Rate 90 102 Respiratory 12 28 17 Rate Blood Pressure 132/59 117/68 (mmHg) O2 Sat by Pulse 97 98 Oximetry 05/19/19 05/19/19 05/19/19 03:30 07:15 08:00 Temperature 97.7 F 98.1 F 97.4 F Pulse Rate 87 86 106 Respiratory 16 16 19 Rate Blood Pressure 124/66 128/79 115/67 (mmHg) O2 Sat by Pulse 99 96 99 Oximetry 05/19/19 09:02 Temperature Pulse Rate Respiratory 16 Rate Blood Pressure (mmHg) O2 Sat by Pulse Oximetry Intake and Output Last 24 Hours 05/17/19 05/18/19 05/19/19 05/20/19 06:59 06:59 06:59 06:59 Intake Total 3332 1925 675 240 Output Total 3169 1345 330 Balance 174 580 345 240 Weight 127 lb 9 oz 122 lb 8 oz Intake: IV Fluids 3234 1745 Normal saline 2234 1745 IVPB 100 180 Fosphenytion 74 Keppra 106 Potassium 100 Oral 0 0 675 240 Output: Urine 1400 0 Conteh 1760 1345 330 Other: Estimated Void Large Date of Last Bowel 05/17/19 05/19/19 Movement # Bowel Movements 1 2 Estimated Stool Amount Medium Medium # Voids 1 Oxygen Devices in Use Now: None Neurology Exam: General: Frail appearing female in no distress HEENT: Normocephelic/atraumatic, sclera anicteric, mucous membranes moist Neck: Supple Extremities: No clubbing, cyanosis, or edema Neurological Findings: Drowsy but easily aroused and alert, and oriented to person, place, and time. Speech: hypophonia and bradykinetic speech Cranial Nerve: PERRL, EOM intact, VFF, no nystagmus, face symmetric bilaterally Motor: antigravity in all four extremity. follows commands well. Sensation: intact to LT/PP bilaterally upper and lower extremities Deep Tendon Reflex: 1+ symmetric in the upper/lower extremities, Babinski - down going Finger to nose, rapid alternating movements intact without tremor, no dysdiadochokinesia Gait: wide based gait no ataxia. Able to ambulate with minimal to no assist. Result Diagrams: 05/18/19 14:43 05/17/19 05:13 Microbiology and Other Data: Microbiology 05/16/19 17:30 Nasal Screen MRSA (PCR) - Final Nasal Mrsa Not Detected Assessment/Plan Mrs. Megan Bautista is a 59-year-old frail female who has history of bladder cancer s/p radiation and chemotherapy, recent diagnosis of UTI where she was started on a cephalosporin but then switched to Bactrim on 05/05/19, chronic pain on oxycodone and morphine therapies, who presented to [facility] [place] yesterday with confusion. She was witnessed to have rapid forceful left then right eye deviation and altered level of awareness. EEG showed diffuse triphasic waves with sharp frontal discharges with high suspicion for nonconvulsive status epilepticus. She was loaded with levetiracetam 1,000 mg and maintained at a dose of 1,000 mg IV twice daily. A repeat EEG on 05/17/19 showed improvement of the triphasic waves but still two intervals of semi-rhythmic discharges at a frequency of 1-2 Hz. This pattern is less likely to be associated with a nonconvulsive pattern. However, the patient's examination fluctuated throughout the day on 05/17/19 where she was initially more awake and interactive, but then develops symptoms of tachycardia and tachyapnea associated with altered level of awareness. She was loaded with fosphenytoin on 05/08/19. An MRI brain with and without contrast showed no evidence of stroke or metastatic disease. An LP showed no evidence of infection. She appeared more awake and conversing with the examiner and her 05/19/19. 1. 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 She is now off levetiracetam. 2. Acute encephalopathy related to seizures and dehydration. She has no clinical or CSF abnormalities to suspect meningoencephalitis. 3. Mild hyperammonemia, resolved. 4. UTI- positive urine culture. Has not started antibiotics but did show improvement. Therefore, I don't think the UTI was the main cause for her encephalopathy. 5. Dehydration and anemia. improving. Recommendations: - Closely monitor for seizure like activity or any sudden onset of altered level of awareness. - We suspect the NCSE was provoked by antibiotic therapy, please add Bactrim to her allergy list. Also, she may not require retirement phenytoin use, but weaning off the medication should be done as an outpatient. - Pending paraneoplastic panel in the serum and have added to the CSF. Pending cytology to evaluate for leptomeningeal carcinamatosis (less likely since she does not have any cranial neuropathy). - Neuro checks every 2 hours - Encourage PO intake. - Treat any seizure like activity lasting more than 5 minutes with lorazepam 2 mg IV x 1. - Please consult PT to evaluate and treat. - I will sign off but please call us for any questions or concern. Follow-up with neurology in 4-6 weeks. At that time, we can slowly wean her off phenytoin if she doesn't have any seizure like activity. Discussed the case with Rossy and the bedside nurse today.
[2019-05-19] MEDS: Pantoprazole IV* 40 MG IV SCH (15:30)
[2019-05-19 15:42] LABS: ABS Eosinophils 0.1 10^3/ul (0-0.6); ABS Monocytes 0.5 10^3/ul (0-0.8); ABS Neutrophils 4.3 10^3/ul (1.5-7.7); Eosinophil % 1.1 %; Hematocrit 26 % (35-47); Hemoglobin 8.6 g/dL (12.0-16.0); Lymphocyte % 16.5 %; Mean Corpuscular HGB Conc 33 g/dL (31-36); Mean Corpuscular Hemoglobin 31 pg (27-31); Mean Corpuscular Volume 94 fL (80-97); Mean Platelet Volume 7.2 fL (7.4-10.4); Platelet Count 260 10^3/uL (150-450); Red Blood Count 2.77 10^6 /uL (3.70-4.87); Red Cell Distribution Width 17 % (10-15); White Blood Count 5.8 10^3/uL (3.5-10.8)
[2019-05-19 17:52] LABS: Hematocrit 25 % (35-47); Hemoglobin 8.5 g/dL (12.0-16.0); Mean Corpuscular HGB Conc 33 g/dL (31-36); Mean Corpuscular Hemoglobin 31 pg (27-31); Mean Corpuscular Volume 94 fL (80-97); Mean Platelet Volume 7.2 fL (7.4-10.4); Platelet Count 259 10^3/uL (150-450); Red Blood Count 2.71 10^6 /uL (3.70-4.87); Red Cell Distribution Width 17 % (10-15)
[2019-05-19 18:08] LABS: LDH 150 U/L (140-271)
[2019-05-19 18:09] LABS: ALT 14 U/L (7-52); AST 11 U/L (13-39); Albumin/Globulin Ratio 0.8 (1-3); Alkaline Phosphatase 103 U/L (34-104); Blood Urea Nitrogen 12 mg/dL (6-24); CO2 Carbon Dioxide 23 mmol/L (22-32); Calcium 7.4 mg/dL (8.6-10.3); Chloride 109 mmol/L (101-111); EGFR African American 277.5 (>60); EGFR Non-African American 229.3 (>60); Globulin 2.4 g/dL (2-4); Glucose 91 mg/dL (70-100); Indirect Bilirubin 0.3 mg/dL (0.3-1.0); Sodium 138 mmol/L (135-145); Total Protein 4.4 g/dL (6.4-8.9)
[2019-05-19 18:16] LABS: Anion Gap 6 mmol/L (2-11); Potassium 2.5 mmol/L (3.5-5.0)
[2019-05-19] MEDS ORDERED: Potassium Chloride* LIQUID 20 MEQ/15 ML UDC PO ONE (18:18)
[2019-05-19] MEDS ORDERED: Loperamide CAP* 2 MG PO PRN (18:20)
[2019-05-19 19:31] LABS: Magnesium 1.2 mg/dL (1.9-2.7)
[2019-05-19] MEDS: KCL 20 MEQ/100 ML IVPREMIX* 20 MEQ/100 ML BAG IV SCH ×2 (19:45→22:08)
[2019-05-19] MEDS: Phenytoin CAP(*) 100 MG CAP.ER PO SCH (21:03)
--- NOTE | 2019-05-19 21:22 | PN ---
Hospitalist Progress Note Date of Service: 05/19/19 Cross Cover RN called and reports pt is having bladder spasms, reports no prior e/o urinary retention, is appropriately covered for UTI Pt requesting pain med for bladder spasms, can trial low dose Oxybutynin though discussed low efficacy, could also consider Pyridium 100mg PO TID max 6 doses if Oxybutynin 5mg not efficacious.
[2019-05-19] MEDS: Oxybutynin TAB* 5 MG PO SCH (22:06)
[2019-05-19] MEDS: Phenazopyridine TAB* 100 MG PO PRN (22:07)
[2019-05-20] MEDS: KCL 20 MEQ/100 ML IVPREMIX* 20 MEQ/100 ML BAG IV SCH (00:55)
[2019-05-20 05:01] LABS: ABS Eosinophils 0.1 10^3/ul (0-0.6); ABS Lymphocytes 1.3 10^3/ul (1.0-4.8); ABS Monocytes 0.6 10^3/ul (0-0.8); ABS Neutrophils 5.9 10^3/ul (1.5-7.7); Hematocrit 25 % (35-47); Hemoglobin 8.3 g/dL (12.0-16.0); Lymphocyte % 16.2 %; Mean Corpuscular HGB Conc 34 g/dL (31-36); Mean Corpuscular Hemoglobin 32 pg (27-31); Mean Corpuscular Volume 95 fL (80-97); Mean Platelet Volume 7.5 fL (7.4-10.4); Platelet Count 252 10^3/uL (150-450); Red Blood Count 2.62 10^6 /uL (3.70-4.87); Red Cell Distribution Width 18 % (10-15); White Blood Count 7.9 10^3/uL (3.5-10.8)
[2019-05-20 05:23] LABS: BUN/Creatinine Ratio 34.2 (8-20); Calcium 7.7 mg/dL (8.6-10.3); EGFR African American 211.2 (>60); EGFR Non-African American 174.6 (>60); Magnesium 1.1 mg/dL (1.9-2.7); Potassium 4.1 mmol/L (3.5-5.0)
[2019-05-20] MEDS ORDERED: Magnesium Sulf 4 GM/100 ML IV* 4,000 MG/100 ML BAG IVPB ONE (07:27)
[2019-05-20] MEDS: Oxybutynin TAB* 5 MG PO SCH ×2 (09:12→20:50)
[2019-05-20] MEDS: Morphine TAB Extended Release (*) 15 MG TAB.ER PO SCH ×2 (09:13→20:50)
[2019-05-20] MEDS: Lactobacillus Acidophilus* 1 TAB PO SCH (09:16)
[2019-05-20] MEDS: cefTRIAXone(*) 1 GM in NS 0.9% 50 ML* 50 ML IVPB SCH (13:05)
[2019-05-20] MEDS: Pantoprazole IV* 40 MG IV SCH (16:43)
[2019-05-20 16:58] LABS: HSV 1 PCR, CSF Negative (Negative); HSV 2 PCR, CSF Negative (Negative)
[2019-05-20] MEDS ORDERED: Alteplase (CATHFLO)* 2 MG VIAL IV ONE (17:57)
--- NOTE | 2019-05-20 20:05 | PN ---
Subjective Date of Service: 05/20/19 Interval History: Patient examined at the bedside, Alert , eyes open. responding appropriately to question. Denies chest pain or shortness of breath. c/o mild supra pubic pain with palpation. abd soft, non tender bs x4. Denies fever or chills. denies lightheadedness of dizziness. reports that diarrhea is improved labs reviewed - H/H 8.07/30 stable- requesting labs from patient heme/oncology to compare. Family History: Unchanged from Admission Social History: Unchanged from Admission Past Medical History: Unchanged from Admission Objective Active Medications: Acetaminophen (Tylenol Tab*) 650 mg PO Q6H PRN PRN Reason: MILD PAIN or TEMP > 100.4 Last Admin: 05/19/19 12:44 Dose: 650 mg Heparin Sodium (Porcine) (Heparin Flush Port (Ivad)) 5 ml FLUSH DAILY [facility]; Protocol Last Admin: 05/20/19 15:20 Dose: 5 ml Ceftriaxone Sodium 1 gm/ (Sodium Chloride) 50 mls @ 100 mls/hr IVPB Q24H [facility] Stop: 05/23/19 13:29 Last Admin: 05/20/19 13:05 Dose: 100 mls/hr Lactobacillus Rhamnosus (Lactobacillus Acidophilus*) 1 tab PO DAILY [facility] Last Admin: 05/20/19 09:16 Dose: 1 tab Loperamide HCl (Imodium Cap*) 2 mg PO .SEE DIRECTIONS PRN PRN Reason: DIARRHEA Lorazepam (Ativan Inj*) 2 mg IV PUSH Q4H PRN PRN Reason: seizure lasting >5min Miscellaneous (Ativan Pyxis Triana) 1 ea N/A .ATIVAN IV TRIANA PRN PRN Reason: PYXIS TRIANA Morphine Sulfate (Ms Contin(*)) 15 mg PO BID [facility] Last Admin: 05/20/19 09:13 Dose: 15 mg Ondansetron HCl (Zofran Tab*) 8 mg PO Q8H PRN PRN Reason: NAUSEA/VOMITING Oxybutynin Chloride (Ditropan Tab*) 5 mg PO BID [facility] Last Admin: 05/20/19 09:12 Dose: 5 mg Pantoprazole Sodium (Protonix Iv*) 40 mg IV Q24H [facility] Last Admin: 05/20/19 16:43 Dose: 40 mg Phenazopyridine HCl (Pyridium Tab*) 100 mg PO TID PRN PRN Reason: PAIN - MILD Last Admin: 05/19/19 22:07 Dose: 100 mg Phenytoin Sodium (Dilantin Cap(*)) 300 mg PO BEDTIME YESI Last Admin: 05/19/19 21:03 Dose: 300 mg Vital Signs - 8 hr 05/20/19 05/20/19 11:56 16:22 Temperature 98.3 F 98.4 F Pulse Rate 95 87 Respiratory 22 19 Rate Blood Pressure 105/68 102/60 (mmHg) O2 Sat by Pulse 98 99 Oximetry Oxygen Devices in Use Now: None Appearance: alert and oriented x3, no acute distress Eyes: No Scleral Icterus Ears/Nose/Mouth/Throat: Clear Oropharnyx, Mucous Membranes Moist Neck: NL Appearance and Movements; NL JVP, Trachea Midline Respiratory: Symmetrical Chest Expansion and Respiratory Effort, Clear to Auscultation Cardiovascular: NL Sounds; No Murmurs; No JVD, No Edema Abdominal: NL Sounds; No Tenderness; No Distention Extremities: No Edema, No Clubbing, Cyanosis Skin: No Rash or Ulcers Neurological: Alert and Oriented x 3 Nutrition: Taking PO's Result Diagrams: 05/21/19 05:30 05/21/19 05:30 Microbiology and Other Data: Microbiology 05/16/19 17:30 Nasal Screen MRSA (PCR) - Final Nasal Mrsa Not Detected Assess/Plan/Problems-Billing Assessment: Ms. Bautista is a 59 yo F with PMH of chronic pain on narcotics, HLD, GERD, TIA, bladder cancer; who presented to the ED with AMS and was found to have an abnormal EEG concerning for status epilepticus, obtunded after receiving anticonvulsants. - Patient Problems (1) Status epilepticus Status: Acute Code(s): G40.901 - EPILEPSY, UNSP, NOT INTRACTABLE, WITH STATUS EPILEPTICUS SNOMED Code(s): 482458118 Comment: - Found on the floor at home by , confused and with gaze abnormality - Mental status improved today - EEG in ED showing findings concerning for nonconvulsive status epilepticus; initially loaded with lorazepam and Keppra - Appreciate Neuro consult; recommends weaning keppra, slowly resuming pain medications - Repeat EEG yesterday showing possible postictal state, no new seizure activity - LP performed yesterday by Neurology; normal results so far - Loaded with fosphenytoin 05/17, will continue Dilantin at 300 mg daily - MRI brain unremarkable - Keppra stopped - continue lorazepam PRN for breakthrough seizures -Urine with Klebsiella Oxytoca - was tx'd with Bactrim as outpatient which is resistent will start- ceftriaxone (2) UTI (urinary tract infection) Status: Acute Comment: -Could contribute to seizures - Urine positive for Klebsiella Oxytoca- resistent to bactrim which the patient was treated with as outpatient - -will continue ceftriaxone- ok with neurology for cephlosporins (3) Anemia Status: Acute Code(s): D64.9 - ANEMIA, UNSPECIFIED SNOMED Code(s): 082127158 Comment: - Hgb 8.3, down from 15 in 2018 - B12 deficiencies - stool occult- negative, will repeat pending - Iron low at 37, TIBC low 120 - likely dilutional - will continue to monitor no acute signs of bleeding. - repeat CBC in the AM (4) Chronic pain Status: Acute Code(s): G89.29 - OTHER CHRONIC PAIN SNOMED Code(s): 59014880 Comment: - will continue to hold Percocet - Resuming home morphine dosing slowly,d/t mentation (5) GERD (gastroesophageal reflux disease) Status: Acute Code(s): K21.9 - GASTRO-ESOPHAGEAL REFLUX DISEASE WITHOUT ESOPHAGITIS SNOMED Code(s): 309879555 Comment: - Continue pantoprazole (6) Hyperlipidemia Status: Acute Code(s): E78.5 - HYPERLIPIDEMIA, UNSPECIFIED SNOMED Code(s): 16620678 Comment: - Hold simvastatin (7) Hypokalemia Status: Acute Code(s): E87.6 - HYPOKALEMIA SNOMED Code(s): 62660944 Comment: K+ level 2.5 yesterday - recieved 100 meq of potassium - repeat today 4.1 - will repeat BMP in the AM (8) Hypomagnesemia Status: Acute Code(s): E83.42 - HYPOMAGNESEMIA SNOMED Code(s): 549553046 Comment: magnesium 1.1 today - likely from diarrhea - will give 4 grams of magnesium and repeat mag in the AM (9) Bladder cancer Status: Acute Comment: - patient with known bladder CA Known bladder mass 10 cm - per the patient - records reviewed [facility]- patient received palliative radiation for bladder mass, failed chemo , waiting for insurance approval for new treatment (10) DVT prophylaxis Status: Acute Code(s): Z29.9 - ENCOUNTER FOR PROPHYLACTIC MEASURES, UNSPECIFIED SNOMED Code(s): 595294302 Comment: - Heparin SQ- stopped h/h dropped - will cotinue with SCD's (11) Full code status Status: Acute Code(s): Z78.9 - OTHER SPECIFIED HEALTH STATUS SNOMED Code(s) : 639085153 Comment: Status and Disposition: Inpatient. Anticipate d/c home when medically stable.
[2019-05-20] MEDS: Phenytoin CAP(*) 100 MG CAP.ER PO SCH (20:49)
[2019-05-20] MEDS: Phenazopyridine TAB* 100 MG PO PRN (20:49)
[2019-05-21 05:41] LABS: Hematocrit 24 % (35-47); Hemoglobin 7.9 g/dL (12.0-16.0); Mean Corpuscular HGB Conc 34 g/dL (31-36); Mean Corpuscular Hemoglobin 32 pg (27-31); Mean Corpuscular Volume 95 fL (80-97); Mean Platelet Volume 7.4 fL (7.4-10.4); Platelet Count 229 10^3/uL (150-450); Red Blood Count 2.46 10^6 /uL (3.70-4.87); Red Cell Distribution Width 18 % (10-15); White Blood Count 5.7 10^3/uL (3.5-10.8)
[2019-05-21 06:10] LABS: BUN/Creatinine Ratio 37.8 (8-20); Calcium 7.1 mg/dL (8.6-10.3); EGFR African American 217.8 (>60); Magnesium 1.5 mg/dL (1.9-2.7)
[2019-05-21] MEDS ORDERED: Magnesium Sulfate IV* 3 GM in NS 0.9% 100 ML* 100 ML IVPB ONE (08:00)
[2019-05-21] MEDS: Morphine TAB Extended Release (*) 15 MG TAB.ER PO SCH (10:09)
[2019-05-21] MEDS: Oxybutynin TAB* 5 MG PO SCH (10:10)
[2019-05-21] MEDS: Lactobacillus Acidophilus* 1 TAB PO SCH (10:10)
[2019-05-21] MEDS: Phenazopyridine TAB* 100 MG PO PRN (11:52)
[2019-05-21] MEDS: Acetaminophen TAB* 325 MG PO PRN (11:52)
[2019-05-21] MEDS: cefTRIAXone(*) 1 GM in NS 0.9% 50 ML* 50 ML IVPB SCH (12:52)
[2019-05-21] MEDS ORDERED: Pantoprazole TAB * 40 MG TAB PO SCH (14:00)
[2019-05-21 16:18] VITALS: BP 90/60
--- NOTE | 2019-05-22 06:31 | DS ---
DISCHARGE SUMMARY: DATE OF ADMISSION: 05/16/19 DATE OF DISCHARGE: 05/21/19 PROVIDER: Rossy Denny NP PRIMARY CARE PROVIDER: Luma Gauthier NP ATTENDING PHYSICIAN WHILE IN THE HOSPITAL: Dr. Lea Schultz * (dictated by Rossy Denny NP). PRIMARY DIAGNOSES: 1. Status epilepticus. 2. Anemia of chronic disease. 3. Urinary tract infection with Klebsiella oxytoca. 4. Hypokalemia. 5. Hypomagnesia. SECONDARY DIAGNOSES: 1. Stage 4 bladder cancer with metastasis to lymph nodes. 2. Hyperlipidemia. 3. Gastroesophageal reflux disease. 4. Chronic pain. 5. History of transient ischemic attack. STUDIES COMPLETED WHILE IN THE HOSPITAL: She had CT of the brain on 05/16/19, radiologist's impression: No intracranial pathology. She had a chest x-ray on 05/16/19, no active cardiopulmonary disease. She had a CTA of the head, radiologist's impression: No internal carotid artery stenosis. No aneurysm or vascular malformation, occlusion or stenosis of the visualized intracranial circulation, heterogeneous thyroid. She had an electrocardiogram, which showed sinus tachycardia at a rate of 115. She had an electroencephalogram. Initial electroencephalogram showed semi- rhythmic pattern and high frequency triphasic waves concerning for nonconvulsive status epilepticus. At the end of the recording, after Ativan was administered, there was no epileptiform discharges or electrographic seizures. The patient clinically had eye deviation towards the right and then corrected to primary gaze after Ativan therapy. The patient had a repeat electroencephalogram on 05/17/19. This is an abnormal EEG due to the presence of triphasic waves, stimulus-induced rhythmic periodic ictal discharges and diffuse slowing. Findings suggestive of moderate diffuse encephalopathy with triphasic waves seen in metabolic disturbance, seen in postictal state and can increase the risk of electrographic seizures. The patient did have an MRI of the brain on 05/17/19, radiologist's impression: Bilateral mastoid effusions, no restricted diffusion to suggest acute infarct. No abnormal enhanced vasogenic edema or space occupied lesions to suggest metastatic disease of the brain. DISCHARGE MEDICATIONS: New home medications: 1. Dilantin 300 mg p.o. at bedtime. 2. Cefdinir 300 mg p.o. b.i.d. x3 more days. 3. Amantadine 20 mg p.o. daily with meals. 4. Lactobacillus 1 tablet p.o. daily. 5. Imodium 2 mg with episodes of diarrhea. 6. Magnesium oxide 400 mg p.o. daily with meal. Discontinued home meds: 1. Morphine 30 mg. 2. Oxycodone. Continued home meds: 1. Simvastatin 40 mg p.o. daily. 2. Compazine 10 mg every 6 hours as needed. 3. Zofran 80 mg every 8 hours as needed. 4. Morphine 15 mg p.o. b.i.d. 5. Magnesium 400 mg p.o. daily with meals. 6. Uro-MP 118 mg p.o. t.i.d. p.r.n. HISTORY OF PRESENT ILLNESS AND HOSPITAL COURSE: Ms. Bautista is a 59-year-old female who was brought to the emergency room with altered mental status. The patient reportedly yesterday was abnormal. The patient's did not bring her to the emergency room at that time; however, on the day of admission, the patient's left the house approximately 8:30 a.m., the patient was noted to be well. The patient's returned home at 11:30 a.m. on the day of admission and found the patient lying on the floor. He noticed that she was confused and had change in her gaze. She was not answering questions. The patient was diagnosed with a UTI last week and was started on Bactrim. The patient was brought in as a code watt. Dr. Khan saw the patient in consultation. The patient was initially sedated on admission due to findings of status epilepticus. She was started on Keppra and Dilantin as well as given Ativan as needed for breakthrough seizures. The patient was initially maintained on Keppra and her Keppra was weaned throughout the hospitalization and she was converted to Dilantin 300 mg at bedtime. The patient did have several labs drawn during this hospitalization and a urine culture was sent. It was found to be positive for Klebsiella oxytoca. Susceptibility was noted to have resistance to Bactrim. Given the patient was recently treated for UTI with Bactrim, she was started on treatment with ceftriaxone, which was susceptible to her underlying urinary tract bacterial infection. The patient was seen in consultation from a neurology during this hospitalization who felt that the seizures could have been precipitated due to underlying urinary tract infection and use of Bactrim, which would lower her seizure threshold. The patient was not found to have any metastatic disease on the MRI of her brain. Today, on the day of discharge, the patient is alert and oriented. She is sitting in her bed. She is able to carry on conversation. At this time, she is stable for discharge. REVIEW OF SYSTEMS: The patient denies any fever, chills. Denies any chest pain or shortness of breath. Denies any nausea or vomiting. She does report chronic diarrhea that has been recurrent x6 to 8 weeks. She does report suprapubic abdominal pain with palpation that has been chronic since June. She denies any rashes, lesions or open sores. PHYSICAL EXAMINATION: General: At this time, Ms. Bautista is alert and oriented , sitting in her hospital bed. She is in no acute distress. Vital Signs: Blood pressure was 90/60, heart rate was 84, respirations 16, O2 saturation on room air was 100%, temperature was 97.6. HEENT: Head is atraumatic, normocephalic. Eyes: EOMs are intact. Sclerae anicteric and not pale. Oral mucosa is moist. Neck is supple. Lungs are clear to auscultation bilaterally. No wheezes, rales, or rhonchi. Cardiac: S1, S2. Regular rate and rhythm. No murmurs, rubs, or gallops. Abdomen is soft. She does have suprapubic tenderness to palpation. Extremities: She is able to move all 4 extremities. There is no clubbing or cyanosis. Neurologic: She is awake, alert, oriented x3. Speech is clear. Thought process is intact. There are no gross focal deficits. Skin is intact. DISCHARGE PLAN: At this time, Ms. Bautista will be discharged home with her . DISCHARGE INSTRUCTIONS: 1. Status epilepticus. The patient was found to have status epilepticus during this hospitalization. She was initially started on Keppra, which was titrated and weaned off. She was continued on Dilantin 300 mg at bedtime. She should continue this until follow up with Neurology in 6 to 8 weeks. She should call the Neurology office for a followup appointment and further recommendations on her medications. 2. Urinary tract infection. The patient was found to have a urinary tract infection that was positive for Klebsiella oxytoca, which was susceptible to cephalosporins. She was started on ceftriaxone. She did receive 4 doses of ceftriaxone IV during this hospitalization. I will continue her on 3 more days of cefdinir 300 mg twice a day for complete treatment of her underlying urinary tract infection. I suspect this underlying urinary tract infection and the use of Bactrim could lower her seizure threshold, which caused her to be in status epilepticus on admission to the hospital. 3. Hypokalemia. The patient was hypokalemic during this hospitalization. She did receive potassium IV with resolution of her hypokalemia. 4. Hypomagnesia. The patient did have a magnesium level of 1.1. She received 8 g of magnesium during this hospitalization. Her magnesium level improved to 1.5. We will discharge her home on magnesium oxide 400 mg p.o. daily. She should get a repeat BMP and mag level in 4 to 7 days. 5. Anemia. The patient does have underlying anemia of chronic disease. Her iron studies and total iron binding capacity were low. The patient did have negative guaiac stools x2 with no acute source of bleeding. 6. Bladder cancer, stage 4. The patient is currently being treated for stage 4 bladder cancer with metastasis to the pelvis lymph nodes. The patient should follow up with her oncologist at [facility]. She has expressed she would like a second opinion. I have given her a number to Hematology/Oncology of [facility], Dr. Galvin, Dr. Wood and Dr. Graves's office. She can call and make an appointment for a second opinion. According to the [facility] Hematology/Oncology note, the patient did receive palliative radiation. She had failed 2 chemotherapy drugs. She has had 2 bladder resection surgeries with return of the tumor. Hematology/Oncology does note that at this time the tumor is inoperable and she is pending a trial therapy of a new chemo drug, but is pending an insurance approval at this time. 7. Chronic pain. The patient does have chronic pain from her bladder mass, bladder cancer. She is followed by her pain clinic. She should follow up with her pain clinic for further management of her pain. I have decreased her pain medications during this hospitalization. I discontinued morphine 30 mg twice daily. She was continued on morphine 15 mg twice daily. I have also discontinued her oxycodone. Her pain has been maintained and under control during this hospitalization with morphine 15 mg twice daily. 8. Diarrhea. The patient does report that she has had diarrhea for 6 to 8 weeks, that has been chronic, 4 to 5 times a day. The patient did have testing for C. diff that was negative during this hospitalization. I will prescribe her lactobacillus and Imodium as needed for the diarrhea. Again, she should have a repeat BMP and magnesium level as she was hypokalemic and hypomagnesia during this hospitalization, which could be related to her underlying diarrhea. 9. Hypotension. The patient did have mild hypotension during this hospitalization. I suspect this is related to her morphine. The patient denied any lightheadedness or dizziness. Blood pressure at that time of discharge was 90/60,heart rate is 84. The patient was able to ambulate in the [place] without any lightheaded dizziness and was completely asymptomatic with this blood pressure. The patient does report that her blood pressure chronically has been running low. The patient was instructed to return to the emergency room for any chest pain shortness of breath, severe or worsening abdominal pain, inability to urinate or any other concerning symptoms, fever or chills. The patient and her verbalized understanding of these instructions. TIME SPENT: Time spent on this discharge was 45 minutes, greater than half that time was spent at the bedside reviewing the discharge instructions and plans. I have discussed this with my attending physician Dr. Lea Schultz, who is in agreement with my plan. CONDITION ON DISCHARGE: Stable. DISPOSITION ON DISCHARGE: Home. ROSSY DENNY, TAHMINA [id number]/[facility] #: [id number] MACY
[2019-05-29 18:07] LABS: Anti-Glial/Neuronal Nuc Ab-1 A Negative titer (<1:240); Anti-Neuronal Nuclear Ab Type1 Negative titer (<1:240); Anti-Neuronal Nuclear Ab Type2 Negative titer (<1:240); Anti-Neuronal Nuclear Ab Type3 Negative titer (<1:240); Anti-Striated Muscle Antibody Negative titer (<1:120); CRMP-5 IgG Antibody Negative titer (<1:240); Purkinje Cell Cytoplasm Typ Tr Negative titer (<1:240); Purkinje Cell Cytoplasm Type 1 Negative titer (<1:240); Purkinje Cell Cytoplasm Type 2 Negative titer (<1:240)
== END 2019-05-21 18:50 | disposition home or self-care (01) | DRG 53 ==
LOC: ED 13:20 → UNDOADMIN 15:47 → ICU 15:47 → MED 05-18 11:50 → ICU 05-18 16:40 → MED 05-18 16:40 → UNDODISIN 05-21 18:50
PROVIDERS: ADMIT Hospitalist; ATTEND Internal Medicine
PROC: 009U3ZX Drainage of Spinal Canal, Percutaneous Approach, Diagnostic (ICD-10-PCS; principal; 2019-05-17)
DX: G40.901 Epilepsy, unspecified, not intractable, with status epilepticus (principal); G93.40 Encephalopathy, unspecified; E72.20 Disorder of urea cycle metabolism, unspecified; C77.9 Secondary and unspecified malignant neoplasm of lymph node, unspecified; F11.23 Opioid dependence with withdrawal; N39.0 Urinary tract infection, site not specified; Z16.39 Resistance to other specified antimicrobial drug; E83.42 Hypomagnesemia; C67.9 Malignant neoplasm of bladder, unspecified; E78.5 Hyperlipidemia, unspecified; E87.6 Hypokalemia; K21.9 Gastro-esophageal reflux disease without esophagitis; E86.0 Dehydration; G89.3 Neoplasm related pain (acute) (chronic); I95.2 Hypotension due to drugs; Y92.230 Patient room in hospital as the place of occurrence of the external cause; T36.8X5A Adverse effect of other systemic antibiotics, initial encounter; D63.8 Anemia in other chronic diseases classified elsewhere; B96.1 Klebsiella pneumoniae [K. pneumoniae] as the cause of diseases classified elsewhere; K52.9 Noninfective gastroenteritis and colitis, unspecified; Z86.73 Personal history of transient ischemic attack (TIA), and cerebral infarction without residual deficits; Z79.899 Other long term (current) drug therapy; Z91.048 Other nonmedicinal substance allergy status; Z83.3 Family history of diabetes mellitus; Z87.891 Personal history of nicotine dependence
CPT/HCPCS: 36415; 70450; 70496; 70498; 70553; 71045; 80048; 80053; 80061; 80076; 80177; 80185; 81003; 81015; 82140; 82272; 82533; 82607; 82728; 82803; 82945; 83519; 83520; 83540; 83550; 83605; 83615; 83735; 84157; 84443; 84484; 85025; 85027; 85610; 85730; 86255; 86256; 86341; 86592; 86618; 87070; 87077; 87086; 87186; 87205; 87493; 87529; 87641; 87899; 89051; 93005; 95816; 95819; 96365; 96375; 99285; A9270-GY; A9579; C1751; J0696; J1642; J1644; J1953; J2060; J2270; J2997; J3360; J3475; J3480; Q2009; Q9967

== ENCOUNTER 2019-05-25 12:52 | Emergency (ER) | payer BC ==
[2019-05-25] MEDS ORDERED: NS 0.9% 1000 ML** 1,000 ML IV ONE (13:00)
[2019-05-25] MEDS ORDERED: levETIRAcetam 1000MG IVPREMIX* 1,000 MG/100 ML BAG IVPB ONE (13:00)
--- NOTE | 2019-05-25 13:06 | ED ---
Altered Mental Status - HPI Summary HPI Summary: Pt is a 59 y/o F presenting to the ED brought in by EMS for AMS. LEVEL 5 CAVEAT: Pts full hx and physical unobtainable d/t decreased responsiveness. Per EMS, pt has a 10cm mass in her bladder, and was recently dxed with seizures. Also has hx of cancer. She reportedly had seizures this morning characterized as staring off into space, and she was incontinent of urine and stool, as well as very combative on EMS arrival. Medications reviewed. Allergies noted. - History Of Current Complaint Stated Complaint: AMS PER EMS Time Seen by Provider: 05/25/19 13:00 Hx Obtained From: EMS Hx From Patient Unobtainable Due To: Altered Mental Status Hx Last Menstrual Period: n/a Onset/Duration: Still Present, Gradually Timing: Constant, Lasting Hours Severity Initially: Moderate Severity Currently: Moderate Character: Responsiveness Aggravating Factor(s): Unknown Alleviating Factor(s): Unknown Associated Signs And Symptoms: Positive: Negative - Allergies/Home Medications Allergies/Adverse Reactions: Allergies Allergy/AdvReac Type Severity Reaction Status Date / Time adhesive tape Allergy Rash Verified 05/16/19 13:43 sulfamethoxazole Allergy See Comment Verified 05/18/19 12:47 [From Bactrim] trimethoprim [From Bactrim] Allergy See Comment Verified 05/18/19 12:47 Home Medications: Home Medications Morphine Sulfate 15 mg PO Q6H PRN 05/25/19 [History Confirmed 05/25/19] Simvastatin 40 mg PO DAILY 05/25/19 [History Confirmed 05/25/19] PMH/Surg Hx/FS Hx/Imm Hx Previously Healthy: Yes Endocrine/Hematology History: Denies: Hx Diabetes Cardiovascular History: Denies: Hx Hypertension, Hx Pacemaker/ICD Respiratory History: Denies: Hx Asthma GI History: Reports: Hx Ulcer - bleeding - healed Musculoskeletal History: Reports: Hx Arthritis Sensory History: Reports: Hx Cataracts - both, Hx Contacts or Glasses Denies: Hx Hearing Aid Opthamlomology History: Reports: Hx Cataracts - both, Hx Contacts or Glasses Neurological History: Reports: Hx Transient Ischemic Attacks (TIA) Psychiatric History: Denies: Hx Panic Disorder - Cancer History Cancer Type, Location and Year: bladder 2019 Hx Chemotherapy: Yes Hx Radiation Therapy: Yes - Surgical History Surgery Procedure, Year, and Place: Cataracts. , 1995,. Cystoscopy x 2 2018- [place] to[place] 06/2018 + 02/2019 Hx Anesthesia Reactions: No - Family History Known Family History: Positive: Cardiac Disease - Social History Alcohol Use: Occasionally Hx Substance Use: No Substance Use Type: Reports: None Hx Tobacco Use: Yes Smoking Status (MU): Heavy Every Day Tobacco Smoker Type: Cigarettes Amount Used/How Often: smoked more than 10 years 1ppd Have You Smoked in the Last Year: Yes Review of Systems - ROS Summary Review of Systems Summary: LEVEL 5 CAVEAT: Pts full hx and physical unobtainable d/t decreased responsiveness. Positive: incontinence Neurological: Other - confusion, AMS, decreased responsiveness, seizures All Other Systems Reviewed And Are Negative: No Physical Exam - Summary Physical Exam Summary: Constitutional: Well-developed, Well-nourished Skin: Warm, Dry HENT: Normocephalic; Atraumatic Eyes: Conjunctiva normal. Pupils are 6mm and reactive. Neck: Musculoskeletal ROM normal neck. (-) JVD, (-) Stridor, (-) Tracheal deviation Cardio: Rhythm regular, rate normal, Heart sounds normal; Intact distal pulses. Radial pulses are 2+ and symmetric. (-) Murmur Pulmonary/Chest wall: Effort normal. (-) Respiratory distress, (-) Wheezes, (-) Rales Abd: Soft. (-) Tenderness, (-) Distension, (-) Guarding, (-) Rebound Musculoskeletal: (-) Edema Lymph: (-) Cervical adenopathy Neuro: Alert, spontaneously moves all four extremities, not following commands, looking around the room without saying anything. Triage Information Reviewed: Yes Vital Signs Reviewed: Yes Completion Of Physical Exam Limited Due To: Altered Mental Status, Level 5 - [place] Coma Scale Best Eye Response: 3 - To Speech Best Motor Response: 5 - Purposeful Movement Best Verbal Response: 4 - Confused Coma Scale Total: 12 Procedures - Procedure Summary Procedure Summary: 15mg Etomidate given at 18:22 50mg Rocuronium given at 18:23 Unable to evaluate Mallampati class. - Sedation Patient Received Moderate/Deep Sedation with Procedure: Yes Are You The Provider Who Administered The Sedation: Yes - Procedural Sedation/Analgesia Sedation Course: RT Present, Emergency Airway Equipment Available, Informed Consent Obtained, Time Out Completed, End-tidal Capnography Utilized Adverse Reactions Experienced by Patient: None Mallampati Classification: Class I ASA Classification: Class III: Severe Systemic Disease Pre-Procedural Heart: S1 and S2 Pre-Procedural Lungs: Clear Auscultation Comment/Plan of Care: intubation w/ rocuronium & etomidate, versed drip, transfer to [facility] Provider Procedure Attestation: With My Signature Below, I Attest to have Personally Reviewed and Agree with the Pre-Sedation History and Pre-Service Assessment Update Cleared for Moderate Sedation: Yes Pre-Procedural Diagnosis: status epilepticus, elevated troponin, bladder cancer , anemia Post-Procedural Diagnosis: status epilepticus, elevated troponin, bladder cancer , anemia Procedure: intubation Estimated Blood Loss: None Specimen(s): None Findings: None Implants/Tubes/Drains Placed: Other Implants/Tubes/Drains Placed Comment: 7.[address] - Intubation Time of Intubation: 18:24 Intubation Method: orotracheal Tube Size (cm): 7.5 Medications: Versed - drip post- Breath Sounds after Intubation: equal Intubation Complications: no complications Post Intubation Xray: Yes Diagnostics - Laboratory Result Diagrams: 05/25/19 14:50 05/25/19 14:29 Lab Statement: Any lab studies that have been ordered have been reviewed, and results considered in the medical decision making process. - CT Brain CT CT Interpretation Completed By: Radiologist Summary of CT Findings: NO EVIDENCE FOR GROSS ACUTE INFARCT, MASS EFFECT OR HEMORRHAGE. ED physician has reviewed this report. - EKG 1342 Cardiac Rate: Tachycardia - 111 EKG Rhythm: Sinus Tachycardia ST Segment: Normal Ectopy: None Summary of EKG Findings: EKG at 1342 shows sinus tachycardia at 111bpm with no STEMI. ED physician has reviewed and interpreted this EKG. Re-Evaluation - Re-Evaluation 1st re-eval Re-Evaluation Time: 16:00 Change: Unchanged Comment: Received Dilantin. No change since arrival. 2nd re-eval Re-Evaluation Time: 16:23 Change: Unchanged Comment: Pt sleeping, just finished Dilantin. [facility] has not called back. 3rd re-eval Re-Evaluation Time: 17:58 Change: Unchanged Comment: Dr. Staples at [facility] accepts pt for transfer. Altered Mental Statu Course/Dx - Course Course Of Treatment: Patient is here with altered mental status. Patient was recently admitted on the ninth after coming in as a code stroke. Patient was found to be in status epilepticus after she had a negative MRI of her brain for any stroke or cancerous lesions and had a positive EEG. Patient was started on Keppra and Dilantin and was discharged on Dilantin by mouth. Patient to bed last night feeling normal and woke up this morning at 11 unresponsive. Patient is spontaneously moving all 4 extremities and does look around. Patient did say stop when an IV was inserted. However, patient does not follow commands. Patient's states this is how she was for 3 days normal hospital here. Patient had an LP during that stay with paraneoplastic labs sent but those are still pending. Patient had level today is grossly unremarkable. Patient Dilantin level is 11.6. Patient was given 1 g of Keppra and then 500 mg of Dilantin IV per neurology. Patient had a repeat head CT which was negative for any acute changes. Given patient's status epilepticus, patient transferred to [place]. Patient was intubated to protect her airway during the long ambulance ride due to the snow. - Diagnoses Provider Diagnoses: Status epilepticus, Bladder cancer, Anemia, Elevated troponin - Provider Notifications Discussed Care Of Patient With: Tasneem Clay Time Discussed With Above Provider: 15:02 Instructed by Provider To: Admit As Inpatient Discharge ED - Sign-Out/Discharge Documenting (check all that apply): Patient Departure - Discharge Plan Condition: Stable Disposition: TRANS HIGHER LVL OF CARE FAC Referrals: Luma Gauthier NP [Primary Care Provider] - - Billing Disposition and Condition Condition: STABLE Disposition: Trans Higher Lvl of Care Fac - Attestation Statements Document Initiated by Scribe: Yes Documenting Scribe: Tran Gutierrez Provider For Whom Surjit is Documenting (Include Credential): Russ Shepherd MD. Scribe Attestation: Tran Carlos, scribed for Russ Shepherd MD. on 05/25/19 at 1850. Scribe Documentation Reviewed: Yes Provider Attestation: The documentation as recorded by the scribe, Tran Gutierrez accurately reflects the service I personally performed and the decisions made by me, Russ Shepherd MD. Status of Scribe Document: Viewed Consult Consult: [id number] - I spoke with Dr. Clay who wants to ensure that Dr. Duncan is on board for pt admission. [id number] - Dr. Duncan would like the pt to be transferred to [place] for continuous EEG monitoring.
--- OUTSIDE RECORDS SUMMARY | 2019-05-25 13:29 | XMS REPORT | Summary of Care ---
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 Primary Care Provider Reason for Referral Diagnostic Radiology (Routine) Status Reason Specialty Diagnoses / Procedures Referred By Referred To Contact Contact Authorized Radiology Diagnoses Bladder cancer metastasized to intrapelvic lymph nodes Tab Orozco MD Procedures CT Abdomen Pelvis with Contrast [address] [place] [address] Email: [email or web address] Diagnostic Radiology (Routine) Status Reason Specialty Diagnoses / Procedures Referred By Referred To Contact Contact Authorized Radiology Diagnoses Bladder cancer metastasized to intrapelvic lymph nodes Tab Orozco MD Procedures CT Thorax with Contrast [address] [place] [address] Email: [email or web address] Reason for Visit Reason Comments Follow-up Encounter Details Date Type Department Care Team Description 04/22/2019 Office Visit Hematology Oncology Tab Orozco, Bladder cancer metastasized to intrapelvic lymph nodes ( Primary Dx); [address] Rafael Barclay MD Encounter for antineoplastic chemotherapy; [place], [place] [address] [facility] Cancer associated pain; [id number] [place], [place] Therapeutic opioid induced constipation [phone] [id number] [phone] Allergies Active Allergy Reactions Severity Noted Date Comments Adhesive Tape Rash Low 07/27/2018 documented as of this encounter (statuses as of 05/07/2019) Medications Medication Sig Dispensed Refills Start Date End Date Status simvastatin (ZOCOR) 40 Take 40 mg by 2 06/23/2018 Active MG tablet mouth daily fenofibrate (TRICOR) Take 145 mg by 1 06/23/2018 Active 145 MG tablet mouth daily pantoprazole (PROTONIX) 0 04/25/2018 Active 40 MG tablet meloxicam (MOBIC) 15 MG 0 04/25/2018 Active tablet Acetaminophen (TYLENOL Take by mouth 0 Active PO) lidocaine-prilocaine Place one inch 30 g 0 08/07/2018 08/06/2019 Active (EMLA) cream of cream over mediport site 30 minutes prior to access and cover with saran wrap. Docusate Sodium (COLACE Take by mouth 0 Active PO) maalox/lidocaine/diphen Swish and 240 mL 1 08/21/2018 Active hydrAMINE (RADIATION swallow 5 mLs MIXTURE) 1:1:1 oral every 4 (four) suspension hours as needed Pharmacy compound: Maalox, lidocaine viscous 2 %, Benadryl 12.5 mg/5 mL prochlorperazine Take 1 tablet by 30 tablet 1 12/07/2018 Active (COMPAZINE) 10 MG mouth every 6 tabletIndications: (six) hours as Malignant neoplasm of needed urinary bladder, (Nausea/Vomiting unspecified site ) ondansetron (ZOFRAN) 8 Take 1 tablet by 20 tablet 1 12/07/2018 Active MG tabletIndications: mouth every 8 Malignant neoplasm of (eight) hours as urinary bladder, needed for unspecified site Nausea or Vomiting Meth-Hyo-M Bl-Na TAKE ONE CAPSULE 0 02/06/2019 Active Phos-Ph Slade (URIBEL) BY MOUTH THREE 118 MG CAPS TIMES A DAY Alpelisib, 300 MG Daily Take 300 mg by 60 each 3 02/12/2019 Active Dose, 2 x 150 MG mouth daily TBPKIndications: Bladder cancer metastasized to intrapelvic lymph nodes, Malignant neoplasm of urinary bladder, unspecified site ibuprofen Take 200 mg by 0 Active (ADVIL,MOTRIN) 200 MG mouth every 6 tablet (six) hours as needed for Pain Morphine Sulfate 15 MG Take 1 tablet by 60 tablet 0 04/18/2019 05/18/2019 Active Oral Tablet (MSIR) mouth every 4 (four) hours as needed for Pain, Max Daily Dose: 90 mg Morphine Sulfate ER 30 Take 1 tablet by 60 tablet 0 04/18/2019 Active MG Oral Tablet Extended mouth Two Times Release (MS Daily , Max CONTIN)Indications: Daily Dose: 60 Pain mg Morphine Sulfate ER 15 Take 1 tablet by 60 tablet 0 04/18/2019 05/18/2019 Active MG Oral Tablet Extended mouth Two Times Release (MS CONTIN) Daily , Max Daily Dose: 30 mg documented as of this encounter (statuses as of 05/07/2019) Active Problems Problem Noted Date Palliative care encounter 03/13/2019 Overview: 59 yo with bladder cancer. Has progressed to stage IV despite chemo. HCP completed this visit. Will continue to gently dialogue about MOLST topics. Constipation due to opioid therapy 03/13/2019 Bladder cancer metastasized to intrapelvic lymph nodes 08/07/2018 Pelvic lymphadenopathy 07/09/2018 Malignant neoplasm of urinary bladder Cancer Staging: Clinical stage from 08/03/2018: Stage IIIB (cT2, cN2, cM0) - Signed by Tab Orozco MD on 08/07/2018 High cholesterol Foul smelling urine Hematuria Cancer associated pain documented as of this encounter (statuses as of 05/07/2019) Immunizations Name Administration Dates Next Due Influenza Quad IM Pres Free (0.5 mL dose) 02/12/2019 documented as of this encounter Social History Tobacco Use Types Packs/Day Years Used Date Current Every Day Smoker Cigarettes 1 20 Smokeless Tobacco: Never Used Alcohol Use Drinks/Week oz/Week Comments No occ on holidays Alcohol Habits Answer Date Recorded How often do you have a drink containing alcohol? Never 07/09/2018 How many drinks containing alcohol do you have on a typical Not asked day when you are drinking? How often do you have six or more drinks on one occasion? Not asked Sex Assigned at Date Recorded Female 04/12/2019 8:45 AM EST Job Start Date Occupation Industry Not on file Not on file Not on file Travel History Travel Start Travel End No recent travel history available. documented as of this encounter Last Filed Vital Signs Vital Sign Reading Time Taken Comments Blood Pressure 99/68 04/22/2019 9:33 AM EST Pulse 108 04/22/2019 9:33 AM EST Temperature 36.5 04/22/2019 9:33 AM EST C (97.7 F) Respiratory Rate 16 04/22/2019 9:33 AM EST Oxygen Saturation 97% 04/22/2019 9:33 AM EST ra Inhaled Oxygen Concentration - - Weight 50.8 kg (112 lb) 04/22/2019 9:33 AM EST Height - - Body Mass Index 21.79 04/12/2019 8:39 AM EST documented in this encounter Progress Notes Tab Orozco MD - 04/22/2019 9:45 AM EST Hematology/Oncology Follow Up Note Diagnosis: 1. Bladder cancer metastasized to intrapelvic lymph nodes Date of Cancer Diagnosis: 06/20/2018 Cancer Stage: Cancer Staging Malignant neoplasm of urinary bladder Staging form: Urinary Bladder, AJCC 8th Edition - Clinical stage from 08/03/2018: Stage IIIB (cT2, cN2, cM0) - Signed by Tab Orozco MD on 08/07/2018 Past Treatment: Treatment Goal: Palliative Plan Name: OP KEYTRUDA UROTHELIAL PEMBROLIZUMAB Status: Inactive Start Date: 11/16/2018 End Date: 01/21/2019 Provider: Iveth Brandon MD Chemotherapy: pembrolizumab (KEYTRUDA) 200 mg in sodium chloride 0.9 % 50 mL chemo infusion, 200 mg,Intravenous, Once, 4 of 12 cycles Administration: 200 mg (11/16/2018), 200 mg (12/07/2018), 200 mg (01/01/2019), 200 mg (01/21/2019) Current Treatment: [No treatment plan] ECOG Performance Status: 2- Ambulatory and capable of all self-care but unable to carry out any work activities; up and aboutmore than 50% of waking hours HPI: Megan Bautista is a 59 y.o. female with a past medical history of high cholesterol. She presented toher PCP for evaluation of symptomatic recurrent urinary tract infections which led to her being referred to Dr. Gutierrez in [place] for further work up and evaluation. During her initial visit, a cystoscopy was performed a large bladder mass was seen. A CT abdomen/pelvis was obtained on 06/19/2018 and showed a 8.7 x 4.3 x 6.4 cm mass lesion in the anterior wall of the bladder, subcentimeter enlarged retroperitoneal lymph nodes , and a stable left adrenal lesion suggestive of benign adenoma. She underwent a cystoscopy with transurethral urinary of a bladder mass on 06/20. Surgical pathology revealed high grade urothelial carcinoma with extensive squamous differentiation, invading muscularis propria, and urothelial carcinoma in situ. She was referred to Dr. Reeder to discuss possibleradical cystectomy where she was seen for the first time on 07/09/2018. He recommended a biopsy of the pelvic nodes seen on her CT scan in order to determine if she had metastatic disease prior to proceeding with any surgical options. She underwent an IR guided biopsy of a right pelvic node on 07/19/2018. Surgical pathology revealed metastatic squamous cell carcinoma. She was seen back by Dr. Reeder on 07/27/2018 where he reviewed the biopsy results with the patient. Her case was reviewed during Urology Tumor Board where the recommendation was neoadjuvant chemotherapy prior to radical cystectomy. She was seen by Dr. Orozco for the first time on 07/31/2018 where he recommended Cisplatin/Gemzar versus dose dense MVAC pending the results of her PET scan. A PET scan was completed on 08/03/2018 which showed pelvic adenopathy compatible with local angeles disease consisting of bilateral external iliac adenopathy and right obturator adenopathy with marked asymmetric thickening of the anterior bladder wall compatible with known tumor. Following a review of her PET scan, she was offered dose dense MVAC x 4 cycles with a plan to obtainrestaging scans which she accepted. She received cycle 1 on 08/09/2018 and 08/10/2018. Following her4th cycle of MVAC, she was sent for updated CT scans on 10/04/2018 which revealed progression with marked asymmetrical nodular thickening of the urinary bladder wall and pelvic and inguinal adenopathy.These results were reviewed with her during her follow up on 10/09/2018 after which her case was reviewed during Urology tumor board. The consensus was Keytruda with palliative RT. She completed palliative RT to the pelvis/bladder on 11/06/2018. She received cycle 1 of Keytruda on11/16/2018. A liquid sample was sent for [facility] [employer] testing and was negative for fibroblast growth factor receptor 2 and 3 alteration but positive PIK3CA mutation (noted possible benefit from Alpelisib, Everolimus, or Temsilorimus). Interim History: Patient here for follow up while still awaiting receipt of alpelisib pending second insurance denial and authorization through compassionate access program of [place]. Pain is much better controlled on current opoid regimen and is 0/10 currently. Her opioid induced constipation is also better managed with new bowel regimen. Subjective: Past Medical and Surgical History Past Medical History: Diagnosis Date Bladder cancer Bladder cancer Foul smelling urine Hematuria High cholesterol Family and Social History Megan Bautista family history includes Alzheimer's disease in her father; Diabetes in her mother. She reports that she has been smoking cigarettes. She has a 20.00 pack-year smoking history. She has never used smokeless tobacco. She reports that she does not drink alcohol or use drugs. Medications and Allergies Allergies Allergen Reactions Tape [Adhesive Tape] Rash Current Outpatient Medications on File Prior to Visit Medication Sig Dispense Refill Acetaminophen (TYLENOL PO) Take by mouth Alpelisib, 300 MG Daily Dose, 2 x 150 MG TBPK Take 300 mg by mouth daily 60 each 3 Docusate Sodium (COLACE PO) Take by mouth fenofibrate (TRICOR) 145 MG tablet Take 145 mg by mouth daily 1 ibuprofen (ADVIL,MOTRIN) 200 MG tablet Take 200 mg by mouth every 6 (six ) hours as needed for Pain lidocaine-prilocaine (EMLA) cream Place one inch of cream over mediport site 30 minutes priorto access and cover with saran wrap. 30 g 0 maalox/lidocaine/diphenhydrAMINE (RADIATION MIXTURE) 1:1:1 oral suspension Swish and swallow 5 mLs every 4 (four) hours as needed Pharmacy compound: Maalox, lidocaine viscous 2 %, Benadryl 12.5 mg/5 mL 240 mL 1 meloxicam (MOBIC) 15 MG tablet Meth-Hyo-M Bl-Na Phos-Ph Slade (URIBEL) 118 MG CAPS TAKE ONE CAPSULE BY MOUTH THREE TIMES A DAY 0 Morphine Sulfate 15 MG Oral Tablet (MSIR) Take 1 tablet by mouth every 4 (four) hours as needed for Pain, Max Daily Dose: 90 mg 60 tablet 0 Morphine Sulfate ER 15 MG Oral Tablet Extended Release (MS CONTIN) Take 1 tablet by mouth [employer] Daily , Max Daily Dose: 30 mg 60 tablet 0 Morphine Sulfate ER 30 MG Oral Tablet Extended Release (MS CONTIN) Take 1 tablet by mouth [employer] Daily , Max Daily Dose: 60 mg 60 tablet 0 ondansetron (ZOFRAN) 8 MG tablet Take 1 tablet by mouth every 8 (eight) hours as needed for Nausea or Vomiting 20 tablet 1 pantoprazole (PROTONIX) 40 MG tablet prochlorperazine (COMPAZINE) 10 MG tablet Take 1 tablet by mouth every 6 (six) hours as needed (Nausea/Vomiting) 30 tablet 1 simvastatin (ZOCOR) 40 MG tablet Take 40 mg by mouth daily 2 No current facility-administered medications on file prior to visit. Review of Systems Denies fever, chills, N/V, SOB, cough, +consipation Objective: Vitals: Vitals - 1 value per visit 04/12/2019 04/12/2019 04/22/2019 SYSTOLIC 105 93 99 DIASTOLIC 71 65 68 PULSE 108 113 108 TEMPERATURE 97.9 98 97.7 RESPIRATIONS 16 - 16 Weight (kg) 52.617 kg 52.799 kg 50.803 kg HEIGHT - 152.7 cm - SPO2 97 92 97 BODY MASS INDEX 22.57 kg/m2 22.64 kg/m2 21.79 kg/m2 PAIN SCALE - SCORE 3 4 0 PAIN SCALE - LOCATION ABDOMEN - - PAIN SCALE - COMMENT - PT states she has pain in her lower abdomen - Physical Exam Awake and alert; oriented to time, place and person HEENT: anicteric sclerae, no pallor Oral mucosa moist: no mucositis or thrush Neck: No JVD or adenopathy Lungs CTA Heart: No murmurs or gallops; regular heart sounds Abdomen: Soft NT ND pos bowel sounds all quandrants Extremities - no cyanosis clubbing or edema Imaging No results found. Lab Review No visits with results within 1 Day(s) from this visit. Latest known visit with results is: Office Visit on 04/12/2019 Component Date Value Ref Range Status Albumin 04/12/2019 3.4* 3.5 - 5.2 g/dL Final Bilirubin, Total 04/12/2019 0.5 <1.2 mg/dL Final Calcium 04/12/2019 9.3 8.6 - 10.0 mg/dL Final Chloride 04/12/2019 95* 98 - 107 mmol/L Final Creatinine 04/12/2019 0.51 0.50 - 0.90 mg/dL Final Glucose 04/12/2019 103 70 - 140 mg/dL Final Alkaline Phosphatase 04/12/2019 127* 35 - 104 U/L Final Potassium 04/12/2019 3.2* 3.4 - 5.1 mmol/L Final Total Protein 04/12/2019 6.7 6.4 - 8.3 g/dL Final Sodium 04/12/2019 134* 136 - 145 mmol/L Final AST/SGO 04/12/2019 11 <32 U/L Final Blood Urea Nitrogen 04/12/2019 6 6 - 20 mg/dL Final Osmolality, Romulo 04/12/2019 276 275 - 300 mosm/kg Final BUN/Cre Ratio 04/12/2019 12 Final Bicarbonate 04/12/2019 27 22 - 29 mmol/L Final ALT/SGP 04/12/2019 5 <33 U/L Final Anion Gap 04/12/2019 12 8 - 15 mmol/L Final A/G Ratio 04/12/2019 1.0 Final GFR Non 2008 CDK-* 04/12/2019 >90 >60 mL/min/ 1.73m2 Final GFR 2008 CKD-EPI 04/12/2019 >90 >60 mL/min/ 1.73m2 Final White Blood Cell 04/12/2019 9.0 4 - 10 10*3/uL Final Red Blood Cell 04/12/2019 3.26* 4.1 - 5.3 10*6/uL Final Hemoglobin 04/12/2019 10.5* 11.5 - 15.5 g/dL Final Hematocrit 04/12/2019 30.2* 36 - 45 % Final Mean Cell Volume 04/12/2019 92.6 80 - 96 fL Final Mean Cell Hemoglobin 04/12/2019 32.1 27 - 33 pg Final Mean Cell Hgb Conc 04/12/2019 34.6 32.0 - 36.0 g/dL Final Red Cell Dist Width 04/12/2019 15.9* 11.5 - 14.5 % Final Platelet Count 04/12/2019 384 150 - 400 10*3/uL Final Differential Type 04/12/2019 Automated Diff Final Neutrophil 04/12/2019 66 % Final Lymphocyte 04/12/2019 16 % Final Monocyte 04/12/2019 10 % Final Eosinophil 04/12/2019 7 % Final Basophil 04/12/2019 1 % Final Abs Neutrophil 04/12/2019 5.93 1.8 - 7.0 10*3/uL Final Abs Lymphocyte 04/12/2019 1.47 1.2 - 4.0 10*3/uL Final Abs Monocyte 04/12/2019 0.87* 0 - 0.8 10*3/uL Final Abs Eosinophil 04/12/2019 0.63* 0 - 0.5 10*3/uL Final Abs Basophil 04/12/2019 0.07 0 - 0.2 10*3/uL Final Nucleated Red Blood Cells 04/12/2019 0 0 - 0 /100 Final ] Assessment and Plan: 59 year old woman with stage IV bladder cancer presents to the clinic for a follow up while still awaiting receipt of alpelisib pending second insurance denial and authorization through compassionate access program of [employer]. 1. Metastatic bladder cancer: has now progressed on 2 lines of therapy including cisplatin based chemo as well as immunotherapy. [employer] testing shows role for alpelisib in setting of positive PIK3CA mutation. Still awaiting receipt of new medication pending second insurance denial and authorization through compassionate access program of [employer] [place]. In the meantime will order restaging CT thorax/abdomen/pelvis to assess current status of disease. 2. Encounter for antineoplastic therapy: still awaiting procurement of alpelisib through compassionate access program. 3. Cancer related pain: much better controlled on current opiate regimen. Continue follow up with palliative care. 4. Opioid induced constipation: still well managed on current bowel regimen. Megan Rousseau Bautista should retrun in 3 weeks. Imaging prior to return to clinic?: yes; CT thorax/abdomen/pelvis Labs on return to clinic? no Medication changes? no Opiod induced constipation? no Meds reconciled? yes Referrals needed? There are no social work or other referral needs at this time documented in this encounter Plan of Treatment Date Type Specialty Care Team Description 05/14/2019 Office Visit Hematology and Oncology Tab Orozco [place] [address] [phone] Name Type Priority Associated Diagnoses Order Schedule CT Thorax with Imaging Routine Bladder cancer Expected: 04/22/2019, Contrast metastasized to Expires: 07/21/[address] Abdomen Pelvis with Imaging Routine Bladder cancer Expected: 04/22/2019, Contrast metastasized to Expires: 07/21/2020 intrapelvic lymph nodes Health Maintenance Due Date Last Done Comments Hepatitis C Screening (B. 1960 [id number]) Pneumococcal Vaccine: Pediatrics 02[birth year]/1968 (0 to 5 Years) and At-Risk Patients (6 to 64 Years) (1 of 3 - PCV13) HIV Screening 1975 Cervical Cancer Screening 5 years 1983 Breast Cancer Screening 2 years 02/21/2012 Colon Cancer Screening 10 yrs 02/21/2012 MMR Vaccines (1 of 1 - Standard 12/21/2016 series) Varicella Vaccines (1 of 2 - 12/21/2016 11/23/2016 2-dose childhood series) DTaP,Tdap,and Td Vaccines (2 - Td) 04/12/2018 03/15/2018 Pneumococcal Vaccine: 65+ Years (1 2027 of 2 - PCV13) Influenza Vaccine Completed 02/12/2019 HIB Vaccines Aged Out No longer eligible based on patient's age to complete this topic Hepatitis A Vaccines Aged Out No longer eligible based on patient's age to complete this topic Hepatitis B Vaccines Aged Out No longer eligible based on patient's age to complete this topic IPV Vaccines Aged Out No longer eligible based on patient's age to complete this topic documented as of this encounter Implants Implanted Type Area Calender Wind Up Tender Device Shelf Model / Identifier Expiration Date Serial / Lot Port- Dignity 8fr Sl - [id number] Right: [facility] 12/05/2022 [id number] / Implanted: Qty: 1 on 08/07/2018 by Saurav Pringle DO at [facility] INPATIENT Chest / Wall [id number] documented as of this encounter Results Not on filedocumented in this encounter Visit Diagnoses Diagnosis Bladder cancer metastasized to intrapelvic lymph nodes - Primary Malignant neoplasm of bladder, part unspecified Encounter for antineoplastic chemotherapy Cancer associated pain Neoplasm related pain (acute) (chronic) Therapeutic opioid induced constipation documented in this encounter
--- OUTSIDE RECORDS SUMMARY | 2019-05-25 13:29 | XMS REPORT | Summary of Care ---
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 Encounter for antineoplastic chemotherapy; [place], [place] [address] [facility] Cancer associated pain [address] [place], [place] [phone] [address] [phone] Allergies Active Allergy Reactions Severity Noted Date Comments Adhesive Tape Rash Low 07/27/2018 documented as of this encounter (statuses as of 05/02/2019) Medications Medication Sig Dispensed Refills Start End Status Date Date simvastatin (ZOCOR) Take 40 mg by 2 Active 40 MG tablet mouth daily 9 fenofibrate (TRICOR) Take 145 mg by 1 Active 145 MG tablet mouth daily 9 pantoprazole 0 Active (PROTONIX) 40 MG 8 tablet meloxicam (MOBIC) 15 0 Active MG tablet 8 Acetaminophen Take by mouth 0 Active (TYLENOL PO) lidocaine-prilocaine Place one inch 30 g 0 Active (EMLA) cream of cream over 9 020 [facility] site 30 minutes prior to access and cover with saran wrap. Docusate Sodium Take by mouth 0 Active (COLACE PO) maalox/lidocaine/dip Swish and 240 mL 1 Active henhydrAMINE swallow 5 mLs 9 (RADIATION MIXTURE) every 4 (four) 1:1:1 oral hours as needed suspension Pharmacy compound: Maalox, lidocaine viscous 2 %, Benadryl 12.5 mg/5 mL prochlorperazine Take 1 tablet 30 tablet 1 Active (COMPAZINE) 10 MG by mouth every 9 tabletIndications: 6 (six) hours Malignant neoplasm as needed of urinary bladder, (Nausea/Vomitin unspecified site g) ondansetron (ZOFRAN) Take 1 tablet 20 tablet 1 Active 8 MG by mouth every 9 tabletIndications: 8 (eight) hours Malignant neoplasm as needed for of urinary bladder, Nausea or unspecified site Vomiting Meth-Hyo-M Bl-Na TAKE ONE 0 Active Phos-Ph Slade (URIBEL) CAPSULE BY 9 118 MG CAPS MOUTH THREE TIMES A DAY Alpelisib, 300 MG Take 300 mg by 60 each 3 Active Daily Dose, 2 x 150 mouth daily 9 MG TBPKIndications: Bladder cancer metastasized to intrapelvic lymph nodes, Malignant neoplasm of urinary bladder, unspecified site ibuprofen Take 200 mg by 0 Active (ADVIL,MOTRIN) 200 mouth every 6 MG tablet (six) hours as needed for Pain oxyCODONE Take 2 tablets 240 tablet 0 Discontinued (ROXICODONE) 5 MG by mouth every 9 019 (Formulary immediate release 4 (four) hours change) tabletIndications: as needed for Bladder cancer Pain, Max Daily metastasized to Dose: 60 mg intrapelvic lymph nodes, Cancer related pain morphine sulfate ER Take 1 tablet 60 tablet 0 Discontinued (MS CONTIN) 15 MG 12 by mouth Two 9 019 (Reorder) hr tablet Times Daily , Max Daily Dose: 30 mg morphine sulfate ER Take 1 tablet 60 tablet 0 Discontinued (MS CONTIN) 30 MG 12 by mouth Two 9 019 (Reorder) hr Times Daily , tabletIndications: Max Daily Dose: Pain 60 mg Alpelisib (300 MG Take 300 mg by 60 each 11 Daily Dose) 2 x 150 mouth daily 9 019 MG Oral Tablet Supervising Therapy physician: Tab PackIndications: MD Ernesto Bladder cancer metastasized to intrapelvic lymph nodes documented as of this encounter (statuses as of 05/02/2019) Active Problems Problem Noted Date Palliative care [...] as of this encounter (statuses as of 05/02/2019) Immunizations Name Administration Dates Next Due Influenza [...] Sign Reading Time Taken Comments Blood Pressure 105/71 04/12/2019 10:18 AM EST Pulse 108 04/12/2019 10:18 AM EST Temperature 36.6 04/12/2019 10:18 AM EST C (97.9 F) Respiratory Rate 16 04/12/2019 10:18 AM EST Oxygen Saturation 97% 04/12/2019 10:18 AM EST ra Inhaled Oxygen Concentration - - Weight 52.6 kg (116 lb) 04/12/2019 10:18 AM EST Height - - Body Mass Index 22.57 04/12/2019 8:39 AM EST documented in this encounter Progress Notes Tab Orozco MD - 04/12/2019 9:45 AM STEPHANIE saw and evaluated the patient. Discussed with the non-physician practitioner and agree with the non-physician practitioner findings and plan as documented in their note. 1. Metastatic bladder cancer: has now progressed on 2 lines of therapy including cisplatin based chemo as well as immunotherapy. [facility] testing shows role for alpelisib in setting of positive PIK3CA mutation. 2. Encounter for antineoplastic therapy: still awaiting procurement of alpelisib through special access program. 3. Cancer related pain: much better controlled on current opiate regimen. Continue follow up with palliative care. Mary Anne Guerrero NP - 04/12/2019 9:45 AM EST Hematology/Oncology Follow Up Note [...] her being referred to Dr. Gutierrez in [place] for further work up and evaluation. During [...] on11/16/2018. A liquid sample was sent for [employer] testing and was negative for fibroblast growth factor receptor 2 and 3 alteration but positive PIK3CA mutation (noted possible benefit from Alpelisib, Everolimus, or Temsilorimus). Interim History: She has not received alpelisib at this time. Did receive a letter from her health insurance stating that they are denying the medical necessity for Foundation One testing at this time.Pain is better controlled in her abdomen and is at a 3/10. Recently met with palliative care that has put her on a new bowel management for her constipation. Subjective: Past Medical and Surgical History Past [...] Refill Acetaminophen (TYLENOL PO) Take by mouth Alpelisib (300 MG Daily Dose) 2 x 150 MG Oral Tablet Therapy Pack Take 300 mg by mouth daily Supervising physician: Tab Orozco MD 60 each 11 Alpelisib, 300 MG Daily Dose, 2 x [...] cream Place one inch of cream over [facility] site 30 minutes priorto access and cover [...] BY MOUTH THREE TIMES A DAY 0 morphine sulfate ER (MS CONTIN) 30 MG 12 hr tablet Take 1 tablet by mouth Two Times Daily , Max Daily Dose: 60 mg 60 tablet 0 ondansetron (ZOFRAN) 8 MG tablet Take 1 tablet by mouth every 8 (eight) hours as needed for Nausea or Vomiting 20 tablet 1 oxyCODONE (ROXICODONE) 5 MG immediate release tablet Take 2 tablets by mouth every 4 (four) hours as needed for Pain, Max Daily Dose: 60 mg 240 tablet 0 pantoprazole (PROTONIX) 40 MG tablet prochlorperazine (COMPAZINE) 10 MG tablet Take 1 tablet by mouth every 6 (six) hours as needed (Nausea/Vomiting) 30 tablet 1 simvastatin (ZOCOR) 40 MG tablet Take 40 mg by mouth daily 2 [] morphine sulfate ER (MS CONTIN) 15 MG 12 hr tablet Take 1 tablet by mouth Two TimesDaily , Max Daily Dose: 30 mg 60 tablet 0 No current facility-administered medications on file prior to visit. Review of Systems Denies fever, chills, N/V, SOB, cough, +consipation Objective: Vitals: Vitals - 1 value per visit 03/11/2019 04/12/2019 04/12/2019 SYSTOLIC 101 105 93 DIASTOLIC 67 71 65 PULSE 110 108 113 TEMPERATURE 97.8 97.9 98 RESPIRATIONS - 16 - Weight (kg) 55.067 kg 52.617 kg 52.799 kg HEIGHT 152.7 cm - 152.7 cm SPO2 97 97 92 BODY MASS INDEX 23.62 kg/m2 22.57 kg/m2 22.64 kg/m2 PAIN SCALE - SCORE 7 3 4 PAIN SCALE - LOCATION ABDOMEN ABDOMEN - PAIN SCALE - COMMENT - - PT states she has pain in her lower abdomen Physical Exam Awake and alert; oriented to time, place and person HEENT: anicteric sclerae, no pallor Oral mucosa moist: no mucositis or thrush Neck: No JVD or adenopathy Lungs CTA Heart: No murmurs or gallops; regular heart sounds Abdomen: Soft NT ND pos bowel sounds all quandrants Extremities - no cyanosis clubbing or edema Imaging No results found. Lab Review Lab Results Component Value Date WBC 9.0 04/12/2019 HGB 10.5 (L) 04/12/2019 HCT 30.2 (L) 04/12/2019 MCV 92.6 04/12/2019 PLT 384 04/12/2019 Assessment: 59 year old woman with stage IV bladder cancer presents to the clinic for a routine follow up. I spoke with Wes Ledesma and he is hoping that he sherin here a determination on her ability to take apelisib next week. I have also contacted Santana Gallegos who is going to help her with the appeal to her drug company to help pay for Foundation One testing. To make sure that she is moving forward with treatment options, will bring her back to the clinic in 2 weeks for a follow up. Will continue to follow with palliative care. Plan: Megan Bautista should retrun in 2 weeks. Imaging prior to return to clinic?: no Labs on return to clinic? no Medication changes? no Opiod induced constipation? no Meds reconciled? yes Referrals needed? There are no social work or other referral needs at this time Mary Anne Reid NP Hematology/Oncology Department [phone] documented in this encounter Plan of Treatment Date Type Specialty Care Team Description 05/14/2019 Office Visit Hematology and Oncology Tab Orozco MD [facility] [place] [address] [phone] Health Maintenance Due Date Last Done Comments Hepatitis C Screening (B. 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 COMPREHENSIVE STAT 04/12/2019 9:55 Bladder cancer Results for this METABOLIC PANEL AM EST metastasized to procedure are in intrapelvic lymph the results nodes section. documented in this encounter Results CBC and differential (04/12/2019 9:55 AM EST) White Blood Cell 9.0 4 - 10 [facility] 10*3/uL [facility] Red Blood Cell 3.26 (L) 4.1 - 5.3 [facility] 10*6/uL [facility] Hemoglobin 10.5 (L) 11.5 - 15.5 [facility] g/dL [facility] Hematocrit 30.2 (L) 36 - 45 % [facility] Pathology Mean Cell Volume 92.6 80 - 96 fL [facility] Mean Cell Hemoglobin 32.1 27 - 33 pg [facility] Mean Cell Hgb Conc 34.6 32.0 - 36.0 [facility] g/dL [facility] Red Cell Dist Width 15.9 (H) 11.5 - 14.5 % [facility] Pathology Platelet Count 384 150 - 400 [facility] 10*3/uL [facility] Differential Type Automated Diff [facility] Neutrophil 66 % [facility] Lymphocyte 16 % [facility] Monocyte 10 % [facility] Eosinophil 7 % [facility] Basophil 1 % [facility] Pathology Abs Neutrophil 5.93 1.8 - 7.0 [facility] 10*3/uL [facility] Abs Lymphocyte 1.47 1.2 - 4.0 [facility] 10*3/uL [facility] Abs Monocyte 0.87 (H) 0 - 0.8 [facility] 10*3/uL [facility] Abs Eosinophil 0.63 (H) 0 - 0.5 [facility] 10*3/uL [facility] Abs Basophil 0.07 0 - 0.2 [facility] 10*3/uL [facility] Clin Pathology Nucleated Red Blood 0 0 - 0 [facility] Cells /100{WBCs} [facility] Pathology Specimen EDTA Whole Blood Performing Organization Address City/State/Zipcode Phone Number [facility] CLINICAL PATHOLOGY [address] [place], [place] [phone] [facility] [address] [place] [address] Pathology Comprehensive metabolic panel (04/12/2019 9:55 AM EST) Albumin 3.4 (L) 3.5 - 5.2 g/dL [facility] Pathology Bilirubin, Total 0.5 <1.2 mg/dL [facility] Pathology Calcium 9.3 8.6 - 10.0 [facility] mg/dL [facility] Pathology Chloride 95 (L) 98 - 107 mmol/L [facility] Pathology Creatinine 0.51 0.50 - 0.90 [facility] mg/dL [facility] Pathology Glucose 103 70 - 140 mg/dL [facility] Pathology Alkaline Phosphatase 127 (H) 35 - 104 U/L [facility] Pathology Potassium 3.2 (L) 3.4 - 5.1 [facility] mmol/L [facility] Pathology Total Protein 6.7 6.4 - 8.3 g/dL [facility] Pathology Sodium 134 (L) 136 - 145 [facility] mmol/L [facility] Pathology AST/SGO 11 <32 U/L [facility] Pathology Blood Urea Nitrogen 6 6 - 20 mg/dL [facility] Pathology Osmolality, Romulo 276 275 - 300 [facility] mosm/kg [facility] Pathology BUN/Cre Ratio 12 [facility]ology Bicarbonate 27 22 - 29 mmol/L [facility]ology ALT/SGP 5 <33 U/L [facility] Pathology Anion Gap 12 8 - 15 mmol/L [facility] Pathology A/G Ratio 1.0 [facility] Pathology GFR Non >90 >60 [facility] [place] 2009 CDK-EPI mL/min/1.73m2 [facility] GFR >90 >60 [facility] 2009 CKD-EPI mL/min/1.73m2 [facility] Specimen Plasma Performing Organization Address City/State/Zipcode Phone Number [facility] CLINICAL PATHOLOGY [address] [place] [address] [facility] [address] [place] [address] Pathology documented in this encounter Visit Diagnoses Diagnosis Bladder cancer metastasized to intrapelvic lymph nodes - Primary Malignant neoplasm of bladder, part unspecified Encounter for antineoplastic chemotherapy Cancer associated pain Neoplasm related pain (acute) (chronic) documented in this encounter
--- OUTSIDE RECORDS SUMMARY | 2019-05-25 13:29 | XMS REPORT | Continuity of Care Document ---
:1960 External Reference #:[id number] Author Name José Gutierrez M.D. 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 Onset: 01/31/2019 Malignant tumor of vault of bladder José Gtuierrez M.D. Onset: 07/03/2018 Urinary tract infectious disease José Gutierrez M.D. Onset: 06/19/2018 Benign neoplasm of adrenal gland José Gutierrez M.D. Onset: 06/19/2018 Neoplasm of uncertain behavior of bladder José Gutierrez M.D. Onset: 2018 Social History Type Date Description Comments Sex Unknown ETOH Use Rarely consumes alcohol Tobacco Use Start: Unknown Patient is a current >1/2 pack daily smoker, smokes every day Recreational Drug Use Denies Drug Use Smoking Status Reviewed: 04/09/19 Patient is a current >1/2 pack daily smoker, smokes every day Allergies, Adverse Reactions, Alerts Active Allergies Reaction Severity Comments Date NKDA 05/29/2018 Adhesive 01/31/2019 Medications Active Medications SIG Qnty Indications Ordering Date Provider Uribel 1 tab by mouth 42caps Brenda, 02/01/2019 118mg Capsules up to three Cathy Kumar times a day prachi Phenazopyridine HCL 1 by mouth 3 60tabs Brenda, 05/29/2018 100mg times a day when Cathy Kumar Tablets necessary Meloxicam 1 tablet by Africa Roberts 15mg Tablets mouth qday M, PA-C Simvastatin 1 tablet by St[place], [place] 40mg Tablets mouth qday M, PA-C Fenofibrate 1 tablet by [place], [place] 145mg Tablets mouth qday M, PA-C Pantoprazole Sodium 1 tablet by St[place], [place] 40mg mouth qday M, PA-C Tablets DR Oxycodone HCL Unknown 5mg Tablets Prochlorperazine Maleate Take One Tablet Unknown 10mg By Mouth Every 6 Tablets Hours as Needed For Nausea/Vomiting Colace 2-In-1 1 caps by mouth Unknown 8.6-50mg twice a day Tablets before meals Acetaminophen Unknown 325mg Tablets History Medications Sulfamethoxazole/Trimethoprim DS 1 by mouth 1tabs Brenda, 02/04/2019 - 800-160mg Tablets once given in Cathy Kumar 2018 office for procedure Immunizations Description No Information Available Vital Signs Date Vital Result Comment 04/09/2019 10:34am BP Systolic 94 mmHg BP Diastolic 62 mmHg Body Temperature 97.3 F Heart Rate 115 /min Respiratory Rate 18 /min Height 57 inches 4'9" Weight 117.00 lb BMI (Body Mass Index) 25.3 kg/m2 BSA (Body Surface Area) 1.43 m2 [place] body weight in kilograms 45 kg O2 % BldC Oximetry 95 % Pain Level 6 lower belly pain 02/14/2019 4:48pm BP Systolic 118 mmHg BP Diastolic 75 mmHg Body Temperature 98.1 F Heart Rate 115 /min Respiratory Rate 16 /min Weight 127.00 lb O2 % BldC Oximetry 98 % Pain Level 8 bc I cant pee Results Test Acquired Date Facility Test Result H/L Range Note Urine Dipstick 02/04/2019 [facility] Color Yellow Yellow Ua Clarity Cloudy Clear [facility] Leuko 500 High Negative Ua Nitrite Negative Negative [facility]a Urobilinogen 1 0.2 - 1.0 E.U./dL [facility] Protein 300 High Negative Ua PH 7.0 6.5-7.5 U[facility] Blood 200 High Negative Ua Specific [place] 1.015 1.010-1.030 Ua Ketones Negative Negative Ua Bilirubin Negative Negative Ua Glucose Negative Negative Urine Culture 01/31/2019 [facility] Urine Culture NO GROWTH: 1, [address] <[place] [address] NOTE> [phone] Urine Dipstick 01/31/2019 [facility] Ua Color yellow Yellow Ua Clarity cloudy Clear Ua Leuko 500 High Negative Ua Nitrite neg Negative Ua Urobilinogen 0.2 0.2 - 1.0 E.U./dL Ua Protein 100 High Negative Ua PH 6.0 Low 6.5-7.5 Ua Blood 200 High Negative Ua Specific [place] 1.025 1.010-1.030 Ua Ketones neg Negative Ua Bilirubin neg Negative Ua Glucose neg Negative 1 R30.0 2 NO GROWTH: FINAL REPORT Procedures Date Code Description Status 02/14/2019 77372 Measurement Post Voiding Residual Urine By Completed Ultrasound,Non-Imaging 02/14/2019 51043 Irrigation Of Bladder Completed 02/13/2019 41956 Cystourethroscopy W/ Fulguration/Resect Large Bladder Completed Tumor 02/04/2019 42448 Cystoscopy Completed Medical Devices Description No Information Available Encounters Type Date Location Provider Dx Diagnosis Office Visit 02/14/2019 Urology José Gutierrez, C67.1 Malignant neoplasm of 4:00p M.D. dome of bladder Office Visit 01/31/2019 Urology José Gutierrez C67.1 Malignant neoplasm of 9:45a M.D. dome of bladder R30.0 Dysuria Z71.6 Tobacco abuse counseling Assessments Date Code Description Provider 04/09/2019 C67.1 Malignant neoplasm of dome of bladder José Gutierrez M.D. 02/14/2019 C67.1 Malignant neoplasm of dome of bladder José Gutierrez M.D. 02/13/2019 C67.1 Malignant neoplasm of dome of bladder José Gutierrez M.D. 02/04/2019 C67.1 Malignant neoplasm of dome of bladder José Gutierrez M.D. 02/04/2019 R30.0 Dysuria José Gutierrez M.D. 02/04/2019 Z71.6 Tobacco abuse counseling José Gutierrez M.D. 01/31/2019 C67.1 Malignant neoplasm of dome of bladder José Gutierrez M.D. 01/31/2019 R30.0 Dysuria José Gutierrez M.D. 01/31/2019 Z71.6 Tobacco abuse counseling José Gutierrez M.D. Plan of Treatment Future Appointment(s):07/09/2019 10:45 am - José Gutierrez M.D. at Urology Functional Status Description No Information Available Mental Status Description No Information Available Referrals Description No Information Available
[2019-05-25 13:54] LABS: Urine Appearance Turbid; Urine Color Amber
[2019-05-25 13:55] LABS: Urine Bacteria 3+ (Absent)
[2019-05-25 13:56] LABS: Urine Red Blood Cell 3+(>10/hpf) (Absent); Urine White Blood Cell 3+(>20/hpf) (Absent)
[2019-05-25 13:58] LABS: INR 1.08 (0.82-1.09)
[2019-05-25 14:05] LABS: Urine Benzodiazepine Screen None Detected (None Detect); Urine Opiates Screen Presumptive Positive (None Detect)
[2019-05-25 14:50] LABS: Albumin 2.3 g/dL (3.2-5.2); Anion Gap 9 mmol/L (2-11); CO2 Carbon Dioxide 19 mmol/L (22-32); Calcium 7.7 mg/dL (8.6-10.3); Chloride 107 mmol/L (101-111); Potassium 4.2 mmol/L (3.5-5.0); Sodium 135 mmol/L (135-145)
[2019-05-25 14:56] LABS: ALT 15 U/L (7-52); AST 17 U/L (13-39); Albumin/Globulin Ratio 0.8 (1-3); Alkaline Phosphatase 202 U/L (34-104); BUN/Creatinine Ratio 69.7 (8-20); Blood Urea Nitrogen 23 mg/dL (6-24); Creatine Kinase 68 U/L (10-223); EGFR African American 248.6 (>60); EGFR Non-African American 205.4 (>60); Glucose 97 mg/dL (70-100); Total Protein 5.3 g/dL (6.4-8.9)
[2019-05-25 14:59] LABS: Troponin I 0.04 ng/mL (<0.03)
[2019-05-25 15:01] LABS: ABS Lymphocytes 0.6 10^3/ul (1.0-4.8); ABS Monocytes 0.8 10^3/ul (0-0.8); ABS Neutrophils 7.8 10^3/ul (1.5-7.7); Hematocrit 28 % (35-47); Hemoglobin 9.5 g/dL (12.0-16.0); Lymphocyte % 6.9 %; Mean Corpuscular HGB Conc 34 g/dL (31-36); Mean Corpuscular Hemoglobin 33 pg (27-31); Mean Corpuscular Volume 97 fL (80-97); Mean Platelet Volume 8.5 fL (7.4-10.4); Platelet Count 264 10^3/uL (150-450); Red Cell Distribution Width 19 % (10-15); White Blood Count 9.3 10^3/uL (3.5-10.8)
[2019-05-25] MEDS ORDERED: Phenytoin IV(*) 500 MG in NS 0.9% 100 ML* 90 ML IV ONE (15:12)
[2019-05-25] MEDS ORDERED: NS 0.9% 100 ML* 100 ML ONE (15:29)
[2019-05-25] MEDS ORDERED: Rocuronium* 10 MG/ML VIAL IV ONE (18:12)
[2019-05-25] MEDS ORDERED: Etomidate* 2 MG/ML 10 ML VIAL IV ONE (18:12)
[2019-05-25] MEDS ORDERED: Midazolam* 1 MG/ML 10 ML VIAL (10 MG) ONE (18:25)
[2019-05-25] MEDS ORDERED: Midazolam IV for DRIP* 100 MG in NS 0.9% 100 ML* 80 ML IV SCH (19:00)
[2019-05-25 19:24] VITALS: BP 125/76
--- NOTE | 2019-05-28 11:55 | ED ---
Imaging and Labs Follow Up Follow Up Type: Labs/Cultures Labs/Culture Result: Urine culture growing >100k VRE enterococcus. Patient Communication/Plan: Pt. transferred to [place] for higher level of care. No change in treatment needed at this time. Provider Diagnoses: Status epilepticus, Bladder cancer, Anemia, Elevated troponin
== END 2019-05-25 19:43 | disposition short-term general hospital (02) ==
LOC: ED 12:52
DX: G40.901 Epilepsy, unspecified, not intractable, with status epilepticus (principal); C67.9 Malignant neoplasm of bladder, unspecified; D64.9 Anemia, unspecified; R79.89 Other specified abnormal findings of blood chemistry; R00.0 Tachycardia, unspecified; R41.82 Altered mental status, unspecified; Z86.73 Personal history of transient ischemic attack (TIA), and cerebral infarction without residual deficits; Z88.2 Allergy status to sulfonamides; Z91.048 Other nonmedicinal substance allergy status; F17.210 Nicotine dependence, cigarettes, uncomplicated
CPT/HCPCS: 31500; 36415; 70450; 71045; 80053; 80185; 80307; 81003; 82140; 82550; 83605; 83690; 84484; 85025; 85610; 87077; 87086; 87186; 93005; 96361; 96365; 99156; 99157; 99285; J1165; J1953; J2250